=== PATIENT | male | born 1940 | race Caucasian/White ===

== ENCOUNTER 2017-01-18 19:52 | Inpatient (IN) | payer OTHER, MEDICAID, MEDICARE ==
[~2017-01-18] VITALS: Ht 167.6 cm; Wt 75.0 kg
[~2017-01-18 19:52] MED LIST: ALEN70TA39 PO; ASPI81TA82 PO; B12-1CHW PO; CALC600T44 PO; CITA10TA4 PO; DOXA1 PO; FISH1000 PO; FOLI200T PO; GLUCTAB PO; METO10TA PO; OMEP20TA PO; PRAV40TA PO; TAB-TAB PO; TOPR50TA PO; VITA400C28 PO
[2017-01-18 19:54] VITALS: BP 114/71; PULSE 97; RESP 16; TEMP 98; O2SAT 98
--- NOTE | 2017-01-18 20:30 | PD ---
Physical Exam Date Seen by Provider: Jan 18, 2017 Time Seen by Provider: 20:28 Narrative 76 y/o male with left lower abd pain with constipation for 36 hours. Patient is unable to keep food or fluids down. No fever. Vital Signs reviewed. Patient is Stable and awaiting Bed Placement. Data Data Last Documented VS Vital Signs Date Time Temp Pulse Resp B/P (MAP) Pulse Ox O2 Delivery O2 Flow Rate FiO2 01/18/17 19:54 98.0 97 16 114/71 (85) 98 MDM Medical Record Reviewed: Yes Supervised Visit with JILLIAN: Yes Condition: Stable Wayne You Jan 18, 2017 20:30
[2017-01-18] MEDS ORDERED: SODIUM CHLOR 0.9% 1000 ML INJ 1,000 ML IV SCH (20:34)
[2017-01-18] MEDS ORDERED: SODIUM CHLORIDE 0.9% FLUSH 10 ML FLUSH IV FLUSH PRN ×2 (20:45→23:30)
[2017-01-18] MEDS ORDERED: ONDANSETRON HCL 4 MG/2 ML VIAL IVP ONE (20:45)
[2017-01-18 20:56] VITALS: BP 99/68; PULSE 84; RESP 16; O2SAT 95
[2017-01-18] MEDS ORDERED: CALC600T25 PO (20:56)
[2017-01-18] MEDS ORDERED: METO50TA PO (20:56)
[2017-01-18] MEDS ORDERED: MULT-65 PO (20:56)
[2017-01-18] MEDS ORDERED: ALEN1TAB48 PO (20:56)
[2017-01-18] MEDS ORDERED: CYAN100025 PO (20:56)
[2017-01-18] MEDS ORDERED: FINA5TAB2 PO (20:56)
[2017-01-18] MEDS ORDERED: TAMS0.4C4 PO (20:56)
[2017-01-18] MEDS ORDERED: FOLI800T PO (20:56)
[2017-01-18] MEDS ORDERED: FISHCAP4 PO (20:56)
[2017-01-18] MEDS ORDERED: METF500T PO (20:56)
[2017-01-18] MEDS ORDERED: PRAV40TA2 PO (20:56)
[2017-01-18] MEDS ORDERED: OMEP20TA PO (20:56)
[2017-01-18] MEDS ORDERED: VITA250T3 PO (20:56)
[2017-01-18] MEDS ORDERED: METO10TA PO (20:56)
[2017-01-18] MEDS ORDERED: CHOL100025 CHEW (20:56)
[2017-01-18] MEDS ORDERED: ACET-822 PO (20:56)
[2017-01-18] MEDS ORDERED: CITA10TA4 PO (20:56)
[2017-01-18 21:00] VITALS: RESP 16; O2SAT 95
[2017-01-18] MEDS ORDERED: DIATRIZOATE MEGLUM/DIATRIZOATE SOD 9 ML CUP ONE (21:07)
--- NOTE | 2017-01-18 21:18 | PD ---
HPI Chief Complaint: Abdominal Pain Time Seen by Provider: 20:34 Travel History International Travel<30 days: No Contact w/Intl Traveler<30days: No Traveled to known affect area: No History of Present Illness HPI Patient is a 76-year-old male with past surgical history of right-sided nephroureterectomy, appendectomy, hernia repair, tonsillectomy, pacemaker placement, the emergency room complaints of abdominal pain, nausea vomiting and constipation. Patient reports that for the past 36 hours, he has not been feeling well. Reports that he has had intractable nausea and vomiting, reports that he has not been able to eat or drink anything. Patient reports that he last had a bowel movement was 36 hours ago. Patient reports abdominal pain to lower abdomen. Denies fever/chills. Denies dysuria, urinary urgency/freq. Patient reports that he has been in remission from kidney cancer about a little less than 5 years. He does still follow with his oncologist Dr. Jeannie LAM Past Medical History Arthritis: Yes Autoimmune Disease: No Anxiety: Yes Depression: No Heart Rhythm Problems: Yes Cancer: Yes (KIDNEY) Cardiovascular Problems: Yes (irregular heart beat, PACEMAKER PLACEMENT) High Cholesterol: Yes Chest Pain: Yes Congestive Heart Failure: No Diabetes: Yes Patient Takes Glucophage: Yes (Metformin) Diminished Hearing: Yes Endocrine: Yes Gastrointestinal Disorders: Yes (ON OMEPRAZOLE) GERD: Yes Genitourinary: Yes Hepatitis: No Hiatal Hernia: Yes Hypertension: Yes Immune Disorder: No Implanted Vascular Access Dvce: Yes Medical other: Yes (HIGH CHOLESTEROL, ARTHRITIS, 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) Musculoskeletal: Yes Neurologic: No Psychiatric: Yes Reproductive: No Respiratory: Yes (hx of sleep apnea) Radiation Therapy: No Sleep Apnea: Yes (HX - NOT ON C-PAP) Thyroid Disease: No Past Surgical History Abdominal Surgery: Yes (appendectomy, RIGHT INGUINAL HERNIA) Body Medical Devices: STENT RIGHT URETER Cardiac Surgery: Yes (pacemaker insertion 09/2011 ; RE-INSERTION PACEMAKER 12/09) Ear Surgery: No Endocrine Surgery: No Eye Surgery: No Genitourinary Surgery: Yes (RT KIDNEY REMOVED) Gynecologic Surgery: No Neurologic Surgery: No Oral Surgery: Yes (TONSILLECTOMY) Pacemaker: Yes ([employer]) Thoracic Surgery: No Tonsillectomy: Yes Other Surgery: Yes (POLYNODAL CYST ON TAILBONE OF SPINE, BLADDER POLYP REMOVAL ) Social History Alcohol Use: No Tobacco Use: Yes (5 CIGARETTES/DAY) Substance Use: No Allergies-Medications (Allergen,Severity, Reaction): Coded Allergies: No Known Allergies (Unverified , 01/18/17) Reported Meds & Prescriptions Reported Meds & Active Scripts Active Reported Vitamin D3 (Cholecalciferol) 1,000 Unit Chew 1,000 Units CHEW DAILY Finasteride 5 Mg Tab 5 Mg PO DAILY Do not crush. Tylenol Extra Strength (Acetaminophen) 500 Mg Tablet PO HS Calcium (Calcium Carbonate) 600 Mg Tab PO DAILY Folic Acid 800 Mcg Tab 800 Mcg PO DAILY Vitamin C (Ascorbic Acid) 250 Mg Tab 500 Mg PO B-12 (Cyanocobalamin) 1,000 Mcg Subl 1,000 Mcg PO DAILY Multi-Vitamin Daily (Multiple Vitamin) 1 Tab Tab 1 Tab PO DAILY Fish Oil + D3 (Fish Oil-Cholecalciferol) 1,200-1,000 Mg-Unit Cap 1 Cap PO DAILY Tamsulosin (Tamsulosin HCl) 0.4 Mg Cap 0.4 Mg PO HS Pravastatin 40 Mg Tab 40 Mg PO DAILY Metformin (Metformin HCl) 500 Mg Tab 500 Mg PO DAILY With a meal Metoprolol Tartrate 50 Mg Tab 50 Mg PO BID Metoclopramide (Metoclopramide HCl) 10 Mg Tab 10 Mg PO TID Citalopram (Citalopram Hydrobromide) 10 Mg Tab 10 Mg PO DAILY Omeprazole 20 Mg Tab 20 Mg PO DAILY Alendronate (Alendronate Sodium) 70 Mg Tab 70 Mg PO Q7D Review of Systems General / Constitutional: No: Fever Eyes: No: Visual changes HENT: No: Headaches Cardiovascular: No: Chest Pain or Discomfort Respiratory: No: Shortness of Breath Gastrointestinal: Positive: Nausea, Vomiting, Abdominal Pain, Constipation Genitourinary: No: Dysuria Musculoskeletal: No: Pain Skin: No Rash Neurologic: No: Weakness Psychiatric: No: Depression Endocrine: No: Polydipsia Hematologic/Lymphatic: No: Easy Bruising Physical Exam Narrative GENERAL: Moderate distress SKIN: Focused skin assessment warm/dry. HEAD: Atraumatic. Normocephalic. EYES: Pupils equal and round. No scleral icterus. No injection or drainage. ENT: No nasal bleeding or discharge. Mucous membranes pink and moist. NECK: Trachea midline. No JVD. CARDIOVASCULAR: Regular rate and rhythm. No murmur appreciated. RESPIRATORY: No accessory muscle use. Clear to auscultation. Breath sounds equal bilaterally. GASTROINTESTINAL: Abdomen soft, increased tenderness to lower abdomen with no rebound or guarding , nondistended. Hepatic and splenic margins not palpable. MUSCULOSKELETAL: No obvious deformities. No clubbing. No cyanosis. No edema. NEUROLOGICAL: Awake and alert. No obvious cranial nerve deficits. Motor grossly within normal limits. Normal speech. PSYCHIATRIC: Appropriate mood and affect; insight and judgment normal. Data Data Last Documented VS Vital Signs Date Time Temp Pulse Resp B/P (MAP) Pulse Ox O2 Delivery O2 Flow Rate FiO2 01/18/17 22:19 77 () 01/18/17 19:54 98.0 Orders Orders Complete Blood Count With Diff (01/18/17 20:34) Comprehensive Metabolic Panel (01/18/17 20:34) Lipase (01/18/17 20:34) Prothrombin Time / Inr (Pt) (01/18/17 20:34) Act Partial Throm Time (Ptt) (01/18/17 20:34) Urinalysis - C+S If Indicated (01/18/17 20:34) Iv Access Insert/Monitor (01/18/17 20:34) Ecg Monitoring (01/18/17 20:34) Oximetry (01/18/17 20:34) NPO (01/18/17 20:34) Ondansetron Inj (Zofran Inj) (01/18/17 20:45) Sodium Chlor 0.9% 1000 Ml Inj (Ns 1000 M (01/18/17 20:34) Sodium Chloride 0.9% Flush (Ns Flush) (01/18/17 20:45) Ct Abd/Pel W/O Iv Contrast (01/18/17 21:01) Diatrizoate Liq ( Gastrofran Liq) (01/18/17 21:07) Oral Contrast - Adult (01/18/17 21:08) Labs Laboratory Tests Test 01/18/17 20:40 White Blood Count 21.2 TH/MM3 Red Blood Count 5.04 MIL/MM3 Hemoglobin 16.7 GM/DL Hematocrit 51.2 % Mean Corpuscular Volume 101.6 FL Mean Corpuscular Hemoglobin 33.1 PG Mean Corpuscular Hemoglobin Concent 32.6 % Red Cell Distribution Width 12.6 % Platelet Count 316 TH/MM3 Mean Platelet Volume 9.9 FL Neutrophils (%) (Auto) 88.2 % Lymphocytes (%) (Auto) 4.3 % Monocytes (%) (Auto) 7.1 % Eosinophils (%) (Auto) 0.1 % Basophils (%) (Auto) 0.3 % Neutrophils # (Auto) 18.7 TH/MM3 Lymphocytes # (Auto) 0.9 TH/MM3 Monocytes # (Auto) 1.5 TH/MM3 Eosinophils # (Auto) 0.0 TH/MM3 Basophils # (Auto) 0.1 TH/MM3 CBC Comment DIFF FINAL Differential Comment Prothrombin Time 11.9 SEC Prothromb Time International Ratio 1.1 RATIO Activated Partial Thromboplast Time 24.0 SEC Blood Urea Nitrogen 23 MG/DL Creatinine 0.89 MG/DL Random Glucose 182 MG/DL Total Protein 7.2 GM/DL Albumin 3.7 GM/DL Calcium Level 9.4 MG/DL Alkaline Phosphatase 80 U/L Aspartate Amino Transf (AST/SGOT) 16 U/L Alanine Aminotransferase (ALT/SGPT) 39 U/L Total Bilirubin 0.9 MG/DL Sodium Level 134 MEQ/L Potassium Level 4.3 MEQ/L Chloride Level 97 MEQ/L Carbon Dioxide Level 26.4 MEQ/L Anion Gap 11 MEQ/L Estimat Glomerular Filtration Rate 84 ML/MIN Lipase 78 U/L MDM Medical Decision Making Medical Screen Exam Complete: Yes Emergency Medical Condition: Yes Interpretation(s) Vital Signs Date Time Temp Pulse Resp B/P (MAP) Pulse Ox O2 Delivery O2 Flow Rate FiO2 01/18/17 21:00 16 Automatic Cuff 95 Room Air 01/18/17 20:56 84 16 99/68 (78) 95 Room Air 01/18/17 19:54 98.0 97 16 114/71 (85) 98 Differential Diagnosis Differential includes small bowel obstruction, gastroenteritis, abdominal mass, electrolyte abnormality, UTI Narrative Course Patient is a 76-year-old male with past surgical history of right-sided nephroureterectomy, appendectomy, hernia repair, tonsillectomy, pacemaker placement, the emergency room complaints of abdominal pain, nausea vomiting and constipation. Patient reports that for the past 36 hours, he has not been feeling well. Reports that he has had intractable nausea and vomiting, reports that he has not been able to eat or drink anything. Patient reports that he last had a bowel movement was 36 hours ago. Plan to administer IVF and antiemetics. Ct of abdomen and pelvis without IV contrast but with PO contrast ordered. Ct with iv contrast not ordered as patient has only 1 working kidney - PO contrast will be sufficient to evaluate for SBO Vital Signs Date Time Temp Pulse Resp B/P (MAP) Pulse Ox O2 Delivery O2 Flow Rate FiO2 01/18/17 22:19 77 () 01/18/17 21:00 16 Automatic Cuff 95 Room Air 01/18/17 20:56 84 16 99/68 (78) 95 Room Air 01/18/17 19:54 98.0 97 16 114/71 (85) 98 Laboratory Tests Test 01/18/17 20:40 White Blood Count 21.2 TH/MM3 (4.0-11.0) Red Blood Count 5.04 MIL/MM3 (4.50-5.90) Hemoglobin 16.7 GM/DL (13.0-17.0) Hematocrit 51.2 % (39.0-51.0) Mean Corpuscular Volume 101.6 FL (80.0-100.0) Mean Corpuscular Hemoglobin 33.1 PG (27.0-34.0) Mean Corpuscular Hemoglobin Concent 32.6 % (32.0-36.0) Red Cell Distribution Width 12.6 % (11.6-17.2) Platelet Count 316 TH/MM3 (150-450) Mean Platelet Volume 9.9 FL (7.0-11.0) Neutrophils (%) (Auto) 88.2 % (16.0-70.0) Lymphocytes (%) (Auto) 4.3 % (9.0-44.0) Monocytes (%) (Auto) 7.1 % (0.0-8.0) Eosinophils (%) (Auto) 0.1 % (0.0-4.0) Basophils (%) (Auto) 0.3 % (0.0-2.0) Neutrophils # (Auto) 18.7 TH/MM3 (1.8-7.7) Lymphocytes # (Auto) 0.9 TH/MM3 (1.0-4.8) Monocytes # (Auto) 1.5 TH/MM3 (0-0.9) Eosinophils # (Auto) 0.0 TH/MM3 (0-0.4) Basophils # (Auto) 0.1 TH/MM3 (0-0.2) CBC Comment DIFF FINAL Differential Comment Prothrombin Time 11.9 SEC (9.8-11.6) Prothromb Time International Ratio 1.1 RATIO Activated Partial Thromboplast Time 24.0 SEC (24.3-30.1) Blood Urea Nitrogen 23 MG/DL (7-18) Creatinine 0.89 MG/DL (0.60-1.30) Random Glucose 182 MG/DL (74-106) Total Protein 7.2 GM/DL (6.4-8.2) Albumin 3.7 GM/DL (3.4-5.0) Calcium Level 9.4 MG/DL (8.5-10.1) Alkaline Phosphatase 80 U/L (45-117) Aspartate Amino Transf (AST/SGOT) 16 U/L (15-37) Alanine Aminotransferase (ALT/SGPT) 39 U/L (12-78) Total Bilirubin 0.9 MG/DL (0.2-1.0) Sodium Level 134 MEQ/L (136-145) Potassium Level 4.3 MEQ/L (3.5-5.1) Chloride Level 97 MEQ/L (98-107) Carbon Dioxide Level 26.4 MEQ/L (21.0-32.0) Anion Gap 11 MEQ/L (5-15) Estimat Glomerular Filtration Rate 84 ML/MIN (>89) Lipase 78 U/L (73-393) Ct of abdomen and pelvis: Proximal to mid small bowel ileus with transition zone identified in the right side of the pelvis characteristic of a partial small bowel obstruction. Patient with no nausea or vomiting while emergency room, will hold on placing NG tube. Patient will require admission to the hospital, call made to Dr. Burger who accepts pt to service Diagnosis Primary Impression: Small bowel obstruction Admitting Information Admitting Physician Requests: Admit Condition: Stable GustavoJackie Marco VIVAS Jan 18, 2017 21:17
[2017-01-18 21:49] LABS: AUTOMATED NEUTROPHIL # 18.7 TH/MM3 (1.8-7.7); BASOPHIL # 0.1 TH/MM3 (0-0.2); BASOPHIL % 0.3 % (0.0-2.0); EOSINOPHIL % 0.1 % (0.0-4.0); HEMATOCRIT 51.2 % (39.0-51.0); HEMO FLAGS DIFF FINAL; LYMPH % 4.3 % (9.0-44.0); LYMPHOCYTE # 0.9 TH/MM3 (1.0-4.8); MEAN CELL VOLUME 101.6 FL (80.0-100.0); MEAN CORPUSCULAR HEMOGLOBIN 33.1 PG (27.0-34.0); MEAN CORPUSCULAR HGB CONC 32.6 % (32.0-36.0); MONO % 7.1 % (0.0-8.0); NEUT % 88.2 % (16.0-70.0); PLATELET COUNT 316 TH/MM3 (150-450); RED BLOOD COUNT 5.04 MIL/MM3 (4.50-5.90); RED CELL DISTRIBUTION WIDTH 12.6 % (11.6-17.2); WHITE BLOOD COUNT 21.2 TH/MM3 (4.0-11.0)
[2017-01-18 22:06] LABS: INTERNATIONAL NORMALIZED RATIO 1.1 RATIO; PROTHROMBIN TIME - PATIENT 11.9 SEC (9.8-11.6)
[2017-01-18 22:08] LABS: ANION GAP 11 MEQ/L (5-15); AST (GOT) 16 U/L (15-37); BICARBONATE 26.4 MEQ/L (21.0-32.0); BLOOD UREA NITROGEN 23 MG/DL (7-18); CHLORIDE 97 MEQ/L (98-107); GLOMERULAR FILTRATION RATE 84 ML/MIN (>89); POTASSIUM 4.3 MEQ/L (3.5-5.1); SODIUM (NA) 134 MEQ/L (136-145)
[2017-01-18 22:09] LABS: ALT (GPT) 39 U/L (12-78)
[2017-01-18 22:11] LABS: ALKALINE PHOSPHATASE 80 U/L (45-117); TOTAL BILIRUBIN ADULT 0.9 MG/DL (0.2-1.0)
[2017-01-18 22:19] VITALS: BP 148/76; PULSE 75; PULSE 77; RESP 16; O2SAT 99
--- NOTE | 2017-01-18 22:51 | RADRPT ---
EXAM DATE/TIME: 01/18/2017 22:30 [facility] COMPARISON: No previous studies available for comparison. INDICATIONS : Abdominal pain, constipation, and vomiting. ORAL CONTRAST: Prescribed oral contrast ingested. RADIATION DOSE: 9.68 CTDIvol (mGy) MEDICAL HISTORY : Gastroesophageal reflux disease. Hernia. Diabetes mellitus type 2.Renal cancer. Hypertension. SURGICAL HISTORY : Appendectomy. Inguinal hernia repair.Right kidney removed. Umbilical hernia repair. ENCOUNTER: Initial ACUITY: 2 days PAIN SCALE: 6/10 LOCATION: abdomen TECHNIQUE: Volumetric scanning of the abdomen and pelvis was performed. Using automated exposure control and ad justment of the mA and/or kV according to patient size, radiation dose was kept as low as reasonably achievable to obtain optimal diagnostic quality images. DICOM format image data is available electro nically for review and comparison. FINDINGS: LOWER LUNGS: The visualized lower lungs are clear. LIVER: Homogeneous density without lesion. There is no dilation of the biliary tree. Numerous calcified gal lstones are identified dependent within the gallbladder. SPLEEN: Normal size without lesion. PANCREAS: Within normal limits. KIDNEYS: Right kidney is absent. Left kidney demonstrates moderate hydronephrosis and hydroureter to the urete rovesical junction. Multiple calcific densities are identified within the urinary bladder. ADRENAL GLANDS: Within normal limits. VASCULAR: Abdominal aorta measures 2.8 cm in greatest diameter. BOWEL/MESENTERY: A proximal to mid small bowel ileus with distended small bowel loops are noted. There is a transition identified in the right side of the pelvis. There is no evidence of focal mass or inflammatory disea se. Colon is normal in caliber. Multiple diverticula are seen throughout the descending and sigmoid s egments. There are no active colonic inflammatory changes. ABDOMINAL WALL: Within normal limits. RETROPERITONEUM: There is no lymphadenopathy. BLADDER: Calcifications are identified along the right posterolateral wall of the bladder. Distended left uret er is noted. There is no evidence of obstructing calculus or mass at the ureterovesical junction. REPRODUCTIVE: Calcific bodies are identified within the transition zone of the prostate. INGUINAL: There is no lymphadenopathy or hernia. MUSCULOSKELETAL: Within normal limits for patient age. CONCLUSION: 1. Proximal to mid small bowel ileus with transition zone identified in the right side of the pelvis characteristic of a partial small bowel obstruction. 2. Left hydronephrosis and hydroureter to the ureterovesical junction without clear indication of obs tructing process. 3. Colonic diverticulosis without evidence of active inflammation. 4. Cholelithiasis without evidence of biliary obstruction. 5. Ectatic atherosclerotic disease of the abdominal aorta. 6. Calculi identified in urinary bladder. Murtaza Alvarado MD on January 18, 2017 at 22:39 Board Certified Radiologist. This report was verified electronically.
[2017-01-18] MEDS ORDERED: BISACODYL 10 MG SUPP RECTAL ONE (23:30)
[2017-01-18] MEDS ORDERED: MORPHINE SULFATE 4 MG/ML INJ IV PRN (23:30)
[2017-01-18] MEDS ORDERED: DEXTROSE 50% IN WATER 50 ML VIAL(D50) IV PRN (23:30)
[2017-01-18] MEDS ORDERED: KETOROLAC TROMETHAMINE 30 MG/ML (IVP) VIAL IVP PRN ×2 (23:30)
[2017-01-18] MEDS ORDERED: BISACODYL 10 MG SUPP RECTAL PRN (23:30)
[2017-01-18] MEDS ORDERED: NALOXONE HCL 0.4 MG/ML AMP IV PRN (23:30)
[2017-01-18] MEDS ORDERED: GLUCAGON 1 MG/ML VIAL OTHER PRN (23:30)
--- NOTE | 2017-01-18 23:57 | HHI.HP ---
[facility] Service [facility] Primary Care Physician Vern Hernandez MD Admission Diagnosis Small bowel obstruction Diagnoses: Chief Complaint: Abdominal pain Travel History International Travel<30 Days: No Contact w/Intl Traveler <30 Da: No Traveled to Known Affected Are: No History of Present Illness This is a 76-year-old male with a history of renal cancer status post surgery, A. fib status post pacemaker placement, intolerant to anticoagulation with bleeding, hyperlipidemia, diabetes mellitus, GERD, hypertension and sleep apnea not on C Pap. He presents to the emergency department because of nausea, vomiting and abdominal pain for the past 36 hours. States he has not been feeling well. He has intractable nausea and vomiting unable to tolerate by mouth. He also has constant sharp moderate lower abdominal pain associated with abdominal distention. States he has not had any bowel movement for almost 2 days. He passed gas once prior to arrival. CT of the abdomen pelvis shows partial bowel obstruction. He has had extensive abdominal surgery. All other systems reviewed and negative Review of Systems Except as stated in HPI: all other systems reviewed are Neg Past Family Social History Past Medical History As previously mentioned Past Surgical History Right sided nephroureterectomy, appendectomy, hernia repair, tonsillectomy Reported Medications Vitamin D3 (Cholecalciferol) 1,000 Unit Chew 1,000 Units CHEW DAILY Finasteride 5 Mg Tab 5 Mg PO DAILY Do not crush. Tylenol Extra Strength (Acetaminophen) 500 Mg Tablet PO HS Calcium (Calcium Carbonate) 600 Mg Tab PO DAILY Folic Acid 800 Mcg Tab 800 Mcg PO DAILY Vitamin C (Ascorbic Acid) 250 Mg Tab 500 Mg PO B-12 (Cyanocobalamin) 1,000 Mcg Subl 1,000 Mcg PO DAILY Multi-Vitamin Daily (Multiple Vitamin) 1 Tab Tab 1 Tab PO DAILY Fish Oil + D3 (Fish Oil-Cholecalciferol) 1,200-1,000 Mg-Unit Cap 1 Cap PO DAILY Tamsulosin (Tamsulosin HCl) 0.4 Mg Cap 0.4 Mg PO HS Pravastatin 40 Mg Tab 40 Mg PO DAILY Metformin (Metformin HCl) 500 Mg Tab 500 Mg PO DAILY With a meal Metoprolol Tartrate 50 Mg Tab 50 Mg PO BID Metoclopramide (Metoclopramide HCl) 10 Mg Tab 10 Mg PO TID Citalopram (Citalopram Hydrobromide) 10 Mg Tab 10 Mg PO DAILY Omeprazole 20 Mg Tab 20 Mg PO DAILY Alendronate (Alendronate Sodium) 70 Mg Tab 70 Mg PO Q7D Allergies: Coded Allergies: No Known Allergies (Unverified , 01/18/17) Family History CVA Social History Condition to smoke 5 cigarettes a day. Does not drink. Physical Exam Vital Signs Vital Signs Date Time Temp Pulse Resp B/P (MAP) Pulse Ox O2 Delivery O2 Flow Rate FiO2 01/18/17 22:19 77 () 01/18/17 21:00 16 Automatic Cuff 95 Room Air 01/18/17 20:56 84 16 99/68 (78) 95 Room Air 01/18/17 19:54 98.0 97 16 114/71 (85) 98 Physical Exam GENERAL: This is a well-nourished, well-developed patient, in no apparent distress. SKIN: No rashes, ecchymoses or lesions. Cool and dry. HEAD: Atraumatic. Normocephalic. No temporal or scalp tenderness. EYES: Pupils equal round and reactive. Extraocular motions intact. No scleral icterus. No injection or drainage. ENT: Nose without bleeding, purulent drainage or septal hematoma. Throat without erythema, tonsillar hypertrophy or exudate. Uvula midline. Airway patent. Dry oral mucosa NECK: Trachea midline. No JVD or lymphadenopathy. Supple, nontender, no meningeal signs. CARDIOVASCULAR: Regular rate and rhythm without murmurs, gallops, or rubs. RESPIRATORY: Clear to auscultation. Breath sounds equal bilaterally. No wheezes , rales, or rhonchi. GASTROINTESTINAL: Abdomen soft, slightly tender lower quadrants, nondistended. No guarding. MUSCULOSKELETAL: Extremities without clubbing, cyanosis, or edema. No joint tenderness, effusion, or edema noted. No calf tenderness. Negative Homans sign bilaterally. NEUROLOGICAL: Awake and alert. Cranial nerves II through XII intact. Motor and sensory grossly within normal limits. Five out of 5 muscle strength in all muscle groups. Normal speech. Laboratory Laboratory Tests Test 01/18/17 20:40 White Blood Count 21.2 Red Blood Count 5.04 Hemoglobin 16.7 Hematocrit 51.2 Mean Corpuscular Volume 101.6 Mean Corpuscular Hemoglobin 33.1 Mean Corpuscular Hemoglobin Concent 32.6 Red Cell Distribution Width 12.6 Platelet Count 316 Mean Platelet Volume 9.9 Neutrophils (%) (Auto) 88.2 Lymphocytes (%) (Auto) 4.3 Monocytes (%) (Auto) 7.1 Eosinophils (%) (Auto) 0.1 Basophils (%) (Auto) 0.3 Neutrophils # (Auto) 18.7 Lymphocytes # (Auto) 0.9 Monocytes # (Auto) 1.5 Eosinophils # (Auto) 0.0 Basophils # (Auto) 0.1 CBC Comment DIFF FINAL Differential Comment Prothrombin Time 11.9 Prothromb Time International Ratio 1.1 Activated Partial Thromboplast Time 24.0 Blood Urea Nitrogen 23 Creatinine 0.89 Random Glucose 182 Total Protein 7.2 Albumin 3.7 Calcium Level 9.4 Alkaline Phosphatase 80 Aspartate Amino Transf (AST/SGOT) 16 Alanine Aminotransferase (ALT/SGPT) 39 Total Bilirubin 0.9 Sodium Level 134 Potassium Level 4.3 Chloride Level 97 Carbon Dioxide Level 26.4 Anion Gap 11 Estimat Glomerular Filtration Rate 84 Lipase 78 Result Diagram: 01/18/17203901/18/172039 Caprini VTE Risk Assessment Caprini VTE Risk Assessment: Mod/High Risk (score >= 2) Caprini Risk Assessment Model Point Value = 1 Point Value = 2 Point Value = 3 Point Value = 5 Age 41-60 Minor surgery BMI > 25 kg/m2 Swollen legs Varicose veins or History of unexplained or recurrent spontaneous Oral contraceptives or hormone replacement Sepsis (< 1 month) Serious lung disease, including pneumonia (< 1 month) Abnormal pulmonary function Acute myocardial infarction Congestive heart failure (< 1 month) History of inflammatory bowel disease Medical patient at bed rest Age 61-74 Arthroscopic surgery Major open surgery (> 45 min) Laparoscopic surgery (> 45 min) Malignancy Confined to bed (> 72 hours) Immobilizing plaster cast Central venous access Age >= 75 History of VTE Family history of VTE Factor V Leiden Prothrombin [id number] Lupus anticoagulant Anticardiolipin antibodies Elevated serum homocysteine Heparin-induced thrombocytopenia Other congenital or acquired thrombophilia Stroke (< 1 month) Elective arthroplasty Hip, pelvis, or leg fracture Acute spinal cord injury (< 1 month) Prophylaxis Regimen Total Risk Factor Score Risk Level Prophylaxis Regimen 0-1 Low Early ambulation 2 Moderate Order ONE of the following: *Sequential Compression Device (SCD) *Heparin 5000 units SQ BID 3-4 Higher Order ONE of the following medications: *Heparin 5000 units SQ TID *Enoxaparin/Lovenox 40 mg SQ daily (WT < 150 kg, CrCl > 30 mL/min) *Enoxaparin/Lovenox 30 mg SQ daily (WT < 150 kg, CrCl > 10-29 mL/min) *Enoxaparin/Lovenox 30 mg SQ BID (WT < 150 kg, CrCl > 30 mL/min) AND/OR *Sequential Compression Device (SCD) 5 or more Highest Order ONE of the following medications: *Heparin 5000 units SQ TID (Preferred with Epidurals) *Enoxaparin/Lovenox 40 mg SQ daily (WT < 150 kg, CrCl > 30 mL/min) *Enoxaparin/Lovenox 30 mg SQ daily (WT < 150 kg, CrCl > 10-29 mL/min) *Enoxaparin/Lovenox 30 mg SQ BID (WT < 150 kg, CrCl > 30 mL/min) AND *Sequential Compression Device (SCD) Assessment and Plan Assessment and Plan This is a 76-year-old male with a history of renal cancer status post surgery, A. fib status post pacemaker placement, intolerant to anticoagulation with bleeding, hyperlipidemia, diabetes mellitus, GERD, hypertension and sleep apnea not on C Pap. He presents to the emergency department because of nausea, vomiting and abdominal pain for the past 36 hours. States he has not been feeling well. He has intractable nausea and vomiting unable to tolerate by mouth. He also has constant sharp moderate lower abdominal pain associated with abdominal distention. States he has not had any bowel movement for almost 2 days. He passed gas once prior to arrival. CT of the abdomen pelvis shows partial bowel obstruction. He has had extensive abdominal surgery. Partial small bowel obstruction likely related to adhesions with extensive abdominal surgeries. Keep nothing by mouth, start IV hydration and pain management with IV Toradol and IV morphine. Hold all home medications for now. GI prophylaxis with Protonix. NGT if persistent vomiting. Repeat KUB in the morning. Consider general surgery consult Leukocytosis likely secondary to above. Patient has abnormal urinalysis with no UTI symptoms. Empiric IV Levaquin. Follow-up cultures Mild hyponatremia. Patient will be on NS infusion Diabetes mellitus. Monitor fingerstick sugars sliding scale coverage. Hypoglycemia protocol DVT prophylaxis with SCD and early ambulation. Hold pharmacological prophylaxis may need surgical intervention Code Status Full Discussed Condition With Patient and daughter Noble Burger MD Jan 18, 2017 23:57
[2017-01-19] VITALS (11 sets, daily range): BP systolic 114–146; BP diastolic 56–85; PULSE 80–103; RESP 16–22; TEMP 97.6–98.2; O2SAT 92–96
[2017-01-19] MEDS: PANTOPRAZOLE SODIUM 40 MG VIAL IV PUSH SCH ×2 (00:07→23:51)
[2017-01-19] MEDS: NS + KCL 20 MEQ INJ 1,000 ML IV SCH ×3 (00:07→19:30)
[2017-01-19 00:30] LABS: BLOOD, URINE SMALL (NEG); GLUCOSE,URINE NEG (NEG); KETONE, URINE TRACE mg/dL (NEG); MUCUS URINE FEW /lpf (OCC); NITRITE,URINE NEG (NEG); SQUAMOUS EPITHELIAL CELL URINE <1 /hpf (0-5); URINE COLOR YELLOW (YELLW/STRAW)
[2017-01-19 00:31] LABS: COMMENT (UR) CULTURE INDICATED; CULTURE IF INDICATED CULTURE INDICATED
[2017-01-19] MEDS: LEVOFLOXACIN 500 MG PREMIX INJ 100 ML IV SCH (01:28)
--- NOTE | 2017-01-19 06:50 | RADRPT ---
EXAM DATE/TIME: 01/19/2017 06:36 [facility] COMPARISON: CT ABDOMEN & PELVIS W/O CONTRAST, January 18, 2017, 22:30. INDICATIONS : Obstruction. MEDICAL HISTORY : None. SURGICAL HISTORY : None. ENCOUNTER: Subsequent ACUITY: 1 week PAIN SCORE: 0/10 LOCATION: Bilateral Abdomen FINDINGS: Supine view of the abdomen was performed. The abdominal bowel gas pattern demonstrate some distentio n of small bowel similar to CT from January 18. No free air identified. Degenerative change of the spi ne. CONCLUSION: 1. Mild gaseous distention of small bowel similar in appearance to recent CT. No free air. Werner Grace MD on January 19, 2017 at 6:47 Board Certified Radiologist. This report was verified electronically.
[2017-01-19 07:39] LABS: BASOPHIL % 0.1 % (0.0-2.0); EOSINOPHIL % 0.3 % (0.0-4.0); HEMATOCRIT 47.3 % (39.0-51.0); HEMO FLAGS DIFF FINAL; LYMPH % 4.2 % (9.0-44.0); LYMPHOCYTE # 0.8 TH/MM3 (1.0-4.8); MEAN CELL VOLUME 101.2 FL (80.0-100.0); MEAN CORPUSCULAR HEMOGLOBIN 33.6 PG (27.0-34.0); MEAN CORPUSCULAR HGB CONC 33.2 % (32.0-36.0); MONO % 7.9 % (0.0-8.0); NEUT % 87.5 % (16.0-70.0); PLATELET COUNT 238 TH/MM3 (150-450); RED BLOOD COUNT 4.67 MIL/MM3 (4.50-5.90); RED CELL DISTRIBUTION WIDTH 12.8 % (11.6-17.2); WHITE BLOOD COUNT 18.2 TH/MM3 (4.0-11.0)
[2017-01-19 07:54] LABS: BICARBONATE 24.7 MEQ/L (21.0-32.0)
[2017-01-19 07:57] LABS: POTASSIUM 4.5 MEQ/L (3.5-5.1)
[2017-01-19] MEDS: ONDANSETRON HCL 4 MG/2 ML VIAL IVP PRN ×2 (08:38→21:20)
[2017-01-19] MEDS: SODIUM CHLORIDE 0.9% FLUSH 10 ML FLUSH IV FLUSH SCH ×2 (09:00→20:54)
--- NOTE | 2017-01-19 12:12 | HHI.PR ---
Subjective Remarks resting comfortably with no distress. has some abdominal pain and nausea. no fever. Objective Vitals Vital Signs Date Time Temp Pulse Resp B/P (MAP) Pulse Ox O2 Delivery O2 Flow Rate FiO2 01/19/17 11:23 98.1 100 19 143/85 (104) 95 01/19/17 08:05 98.2 92 22 130/84 (99) 96 01/19/17 03:36 90 01/19/17 01:54 87 01/19/17 01:40 01/19/17 01:33 97.6 93 18 146/83 (104) 92 01/19/17 01:07 80 16 128/56 (80) 94 Room Air 01/18/17 22:19 77 () 01/18/17 21:00 16 Automatic Cuff 95 Room Air 01/18/17 20:56 84 16 99/68 (78) 95 Room Air 01/18/17 19:54 98.0 97 16 114/71 (85) 98 I/O 01/18/17 01/18/17 01/18/17 01/19/17 01/19/17 01/19/17 07:00 15:00 23:00 07:00 15:00 23:00 Intake Total 1000 ml 100 ml Balance 1000 ml 100 ml Intake IV Total 1000 ml 100 ml # Voids 3 Result Diagram: 01/19/1762901/19/17 0630 Objective Remarks GENERAL: This is a well-nourished, well-developed patient, in no apparent distress. CARDIOVASCULAR: Regular rate and regular rhythm without murmurs, gallops, or rubs. RESPIRATORY: Clear to auscultation. Breath sounds equal bilaterally. No wheezes , rales, or rhonchi. GASTROINTESTINAL: Abdomen soft, non-tender, nondistended. Normal, active bowel sounds MUSCULOSKELETAL: Extremities without clubbing, cyanosis, or edema. NEURO: Alert & Oriented x4 to person, place, time, situation. Moves all ext x4 Medications and IVs Current Medications Ondansetron HCl (Zofran Inj) 4 mg ONCE ONCE IVP Last administered on t 21:12; Start 01/18/17 at 20:45; Stop 01/18/17 at 20:46; Status DC Sodium Chloride 1,000 ml @ 1,000 mls/hr Q1H IV Last administered on 01/18/17 21:13; Start 01/18/17 at 20:34; Stop 01/18/17 at 21:33; Status DC Sodium Chloride (NS Flush) 2 ml UNSCH PRN IV FLUSH FLUSH AFTER USING IV ACCESS ; Start 01/18/17 at 20:45 Diatrizoate Meglum/ Diatrizoate Sod (Md [place] Streeter) 18 ml STK-MED ONCE .ROUTE Last administered on 01/18/17 21:13; Start 01/18/17 at 21:07; Stop at 21:08; Status DC Pantoprazole Sodium (Protonix Inj) 40 mg Q24H IV PUSH Last administered on 01/19 00:07; Start 01/18/17 at 23:30 Potassium Chloride/Sodium Chloride 1,000 ml @ 100 mls/hr Q10H IV Last administered on 01/19/17 00:07; Start 01/18/17 at 23:30 Dextrose (D50w (Vial) Inj) 50 ml UNSCH PRN IV HYPOGLYCEMIA-SEE COMMENTS; Start 01/18/17 at 23:30 Glucagon (Glucagon Inj) 1 mg UNSCH PRN OTHER HYPOGLYCEMIA-SEE COMMENTS; Start 01/18/17 at 23:30 Sodium Chloride (NS Flush) 2 ml UNSCH PRN IV FLUSH FLUSH AFTER USING IV ACCESS ; Start 01/18/17 at 23:30 Sodium Chloride (NS Flush) 2 ml BID IV FLUSH ; Start 01/19/17 at 09:00 Ondansetron HCl (Zofran Inj) 4 mg Q6H PRN IVP NAUSEA OR VOMITING Last administered on 01/19/17 08:38; Start 01/18/17 at 23:30 Ketorolac Tromethamine (Toradol Inj) 15 mg Q6H PRN IVP Pain 1-5; if unable to take PO; Start 01/18/17 at 23:30; Stop 01/23/17 at 23:29 Ketorolac Tromethamine (Toradol Inj) 30 mg Q6H PRN IVP Pain 6-10;if unable to take PO; Start 01/18/17 at 23:30; Stop 01/23/17 at 23:29 Morphine Sulfate (Morphine Inj) 2 mg Q3H PRN IV BREAKTHROUGH PAIN; Start at 23:30 Naloxone HCl (Narcan Inj) 0.4 mg UNSCH PRN IV SEE LABEL COMMENTS; Start at 23:30 Bisacodyl (Dulcolax Supp) 10 mg DAILY PRN RECTAL SEVERE CONSITIPATION; Start at 23:30 Bisacodyl (Dulcolax Supp) 10 mg ONCE ONCE RECTAL Last administered on 00:07; Start 01/18/17 at 23:30; Stop 01/18/17 at 23:31; Status DC Levofloxacin/ Dextrose 100 ml @ 100 mls/hr Q24H IV Last administered on 01:28; Start 01/19/17 at 02:00 A/P Assessment and Plan Partial small bowel obstruction likely related to adhesions with extensive abdominal surgeries. Keep nothing by mouth, continue IV hydration and pain management with IV Toradol and IV morphine. Hold all home medications for now. GI prophylaxis with Protonix. NGT if persistent vomiting. Repeat KUB today; similar to CT abdomen yesterday. consult general surgery. Leukocytosis likely secondary to above. Patient has abnormal urinalysis with no UTI symptoms. Empiric IV Levaquin. Follow-up cultures Mild hyponatremia. Patient will be on NS infusion Diabetes mellitus. Monitor fingerstick sugars sliding scale coverage. Hypoglycemia protocol DVT prophylaxis with SCD and early ambulation. Hold pharmacological prophylaxis may need surgical intervention Malachi Martinez MD Jan 19, 2017 12:12
--- NOTE | 2017-01-19 14:22 | MB ---
cc: YOKASTA NOGUEIRA MD, DAVID G. M.D. DATE OF CONSULTATION: 01/19/2017 REASON FOR CONSULTATION Partial small bowel obstruction. BRIEF HISTORY This is a pleasant 76-year-old man who is not the best historian, who has a history of right nephrectomy and atrial fibrillation with a pacemaker who is intolerant to anticoagulation, has hyperlipidemia, diabetes, reflux, hypertension and sleep apnea. He apparently had a normal bowel movement Wednesday and went to [facility], had doughnuts and coffee, came home and had a small bowel movement following that, but has not really had a bowel movement since. He developed distention, nausea and emesis, and no bowel movement over the last two days since Wednesday. He had a CT scan which showed small bowel ileus with a transition zone in the right lower quadrant and no inflammatory changes. He was admitted after an elevated white count was diagnosed and he had a follow-up plain film of the abdomen which showed some mild distention consistent with the findings on the CT scan. He was treated presumably empirically with Levaquin. Interestingly urinalysis on admission did demonstrate proteinuria, ketonuria, moderate leukocyte esterase, 9 red cells, 36 white cells, and a culture was indicated which is pending. He again is poor historian. His daughter is not at the bedside. She did not answer her phone when I called her for additional information and discussion. The history is obtained from the computer. ALLERGIES He has no known drug allergies. PAST MEDICAL HISTORY As discussed above. PAST SURGICAL HISTORY Previous surgeries include: 1. Right nephroureterectomy. 2. Appendectomy. 3. Hernia repair. 4. Tonsillectomy. MEDICATIONS Routine medications include: 1. Vitamin-D3. 2. Finasteride. 3. Extra Strength Tylenol. 4. Calcium. 5. Folic acid. 6. Vitamin-C. 7. B12. 8. Multivitamin. 9. Fish oil. 10.Tamsulosin. 11.Pravastatin. 12.Metformin. 13.Metoprolol. 14.Metoclopramide. 15.Citalopram. 16.Omeprazole. 17.Alendronate. SOCIAL HISTORY He smokes about five cigarettes a day, does not drink. FAMILY HISTORY Significant for stroke. REVIEW OF SYSTEMS Again as discussed in the HPI. He does admit to seeing Dr. Jackson. He has a left-sided pacemaker in place. He is in atrial fibrillation but cannot take anticoagulant medications. He does use a walker for ambulation. He says he still drives. PHYSICAL EXAMINATION GENERAL: He is an elderly man who is in no acute distress. He is very pleasant and cooperative with the exam. He wishes his daughter was here to give details about his history. VITAL SIGNS: Temperature is 98.1, pulse 100, respiratory rate 19, blood pressure 143/85. His O2 sat is 95%. HEENT: He is normocephalic, atraumatic. His pupils are 2-3, round and sluggishly reactive to light. His sclera are anicteric. His oropharynx shows he is edentulous in the upper jaw. He has got teeth on the lower. His mucous membranes appear are moist. NECK: His neck is supple without adenopathy. He has a midline trachea. No jugular venous distention. LUNGS: His lungs are clear to auscultation bilaterally. HEART: His heart sounds are regular without obvious murmur, rub or gallop. He has a left-sided pacemaker in place and the incision is well-healed. ABDOMEN: His abdomen is soft. It is nondistended. He has mild tenderness in the lower abdomen. He has a lower midline healed incision without obvious hernia. He has normal bowel sounds without high-pitched tinkling noises. EXTREMITIES: His extremities are thin. He has got equal radial pulses. NEUROLOGIC: He is neurologically awake, alert, oriented. He has no obvious gross motor or sensory deficits. He has just a poor recollection of his history. LABORATORY His laboratory values include a white count which has gone from 21,000 on admission to 18,000, hemoglobin 15.7, platelet count 238. His differential shows 87.5% neutrophils. INR is 1.1. His potassium 4.5, BUN 22, creatinine 0.72, glucose 129. Liver function tests and lipase are normal. Urinalysis with the above-mentioned findings. IMAGING CT abdomen and pelvis demonstrated the findings as discussed above. He is status post right nephrectomy. He has some hydronephrosis and hydroureter on the left side without a clear indication of the obstructing process. He has colonic diverticulosis without inflammation. He has multiple gallstones without evidence of biliary obstruction. 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 ASSESSMENT A very pleasant 76-year-old gentleman with a history of right nephrectomy through a lower midline incision. He has a possible urinary tract infection. He may have an adhesional partial small bowel obstruction which appears clinically improved at this time as he has no abdominal distention or further nausea or vomiting. He has gallstones. He has a left dilated ureter of unknown etiology. He says he has a history of bladder polyps and has had cystoscopy for that. PLAN Full liquid diet. Attempts to advance diet as he tolerates. If he has worsening symptoms, consideration for upper GI small bowel follow-through versus diagnostic laparoscopy and laparoscopic adhesiolysis. I agree with continuing broad-spectrum antibiotic treatment and follow-up on the urine culture. ADDENDUM I did attempt to call the patient's daughter, Conchita, and I have left her a voice mail with our impression and plan. MD TEVIN Lockhart/FLORECITA /1:33 PM /2:04 PM
[2017-01-20] VITALS (8 sets, daily range): BP systolic 124–157; BP diastolic 69–87; PULSE 79–101; RESP 16–21; TEMP 96.7–98.7; O2SAT 92–95
[2017-01-20] MEDS: LEVOFLOXACIN 500 MG PREMIX INJ 100 ML IV SCH (01:51)
[2017-01-20] MEDS: NS + KCL 20 MEQ INJ 1,000 ML IV SCH ×3 (05:26→22:42)
[2017-01-20] MEDS: ONDANSETRON HCL 4 MG/2 ML VIAL IVP PRN ×2 (05:34→10:29)
[2017-01-20] MEDS: SODIUM CHLORIDE 0.9% FLUSH 10 ML FLUSH IV FLUSH SCH ×2 (09:00→21:00)
[2017-01-20 10:29] LABS: AUTOMATED NEUTROPHIL # 16.5 TH/MM3 (1.8-7.7); BASOPHIL % 0.1 % (0.0-2.0); EOSINOPHIL % 0.1 % (0.0-4.0); HEMATOCRIT 50.2 % (39.0-51.0); HEMO FLAGS DIFF FINAL; LYMPHOCYTE # 0.5 TH/MM3 (1.0-4.8); MEAN CELL VOLUME 102.5 FL (80.0-100.0); MEAN CORPUSCULAR HEMOGLOBIN 33.4 PG (27.0-34.0); MEAN CORPUSCULAR HGB CONC 32.6 % (32.0-36.0); MONO % 6.6 % (0.0-8.0); NEUT % 90.2 % (16.0-70.0); PLATELET COUNT 233 TH/MM3 (150-450); RED CELL DISTRIBUTION WIDTH 12.9 % (11.6-17.2); WHITE BLOOD COUNT 18.3 TH/MM3 (4.0-11.0)
--- NOTE | 2017-01-20 12:08 | HHI.PR ---
Subjective Remarks in no acute distress. couldn't tolerate the liquid diet and started to have worsening nausea - had some emesis earlier today. no significant change in his abdominal pain. afebrile. family at the bedside. d/w the RN at the bedside. Objective Vitals Vital Signs Date Time Temp Pulse Resp B/P (MAP) Pulse Ox O2 Delivery O2 Flow Rate FiO2 01/20/17 08:52 98.3 79 16 140/83 (102) 95 01/20/17 04:28 97.5 97 20 157/80 (105) 93 01/20/17 03:53 98 01/20/17 03:31 94 21 01/19/17 23:55 80 01/19/17 23:03 97.6 90 18 119/59 (79) 93 01/19/17 20:06 97.6 102 18 114/83 (93) 96 01/19/17 20:05 103 01/19/17 20:05 80 01/19/17 17:19 93 21 I/O 01/19/17 01/19/17 01/19/17 01/20/17 01/20/17 01/20/17 07:00 15:00 23:00 07:00 15:00 23:00 Intake Total 100 ml 1100 ml 1100 ml 240 ml Balance 100 ml 1100 ml 1100 ml 240 ml Intake Oral 500 ml 240 ml IV Total 100 ml 600 ml 1100 ml # Voids 3 1 # Bowel Movements 0 Result Diagram: 01/20/17 0944 01/19/17 0630 Imaging Last Impressions Abdomen X-Ray 01/19/17 0600 Signed Impressions: Service Date/Time: Thursday, January 19, 2017 06:36 - CONCLUSION: 1. Mild gaseous distention of small bowel similar in appearance to recent CT. No free air. Werner Grace MD Abdomen/Pelvis CT 01/18/17 210 Signed Impressions: Service Date/Time: Wednesday, January 18, 2017 22:30 - CONCLUSION: 1. Proximal to mid small bowel ileus with transition zone identified in the right side of the pelvis characteristic of a partial small bowel obstruction. 2. Left hydronephrosis and hydroureter to the ureterovesical junction without clear indication of obstructing process. 3. Colonic diverticulosis without evidence of active inflammation. 4. Cholelithiasis without evidence of biliary obstruction. 5. Ectatic atherosclerotic disease of the abdominal aorta. 6. Calculi identified in urinary bladder. Murtaza Alvarado MD Objective Remarks GENERAL: This is a well-nourished, well-developed patient, in no apparent distress. CARDIOVASCULAR: Regular rate and regular rhythm without murmurs, gallops, or rubs. RESPIRATORY: Clear to auscultation. Breath sounds equal bilaterally. No wheezes , rales, or rhonchi. GASTROINTESTINAL: Abdomen soft, mild generalized tenderness, nondistended. Normal, active bowel sounds MUSCULOSKELETAL: Extremities without clubbing, cyanosis, or edema. NEURO: Alert & Oriented x4 to person, place, time, situation. Moves all ext x4 Medications and IVs Current Medications Ondansetron HCl (Zofran Inj) 4 mg ONCE ONCE IVP Last administered on 21:12; Start 01/18/17 at 20:45; Stop 01/18/17 at 20:46; Status DC Sodium Chloride 1,000 ml @ 1,000 mls/hr Q1H IV Last administered on 01/18/17 21:13; Start 01/18/17 at 20:34; Stop 01/18/17 at 21:33; Status DC Sodium Chloride (NS Flush) 2 ml UNSCH PRN IV FLUSH FLUSH AFTER USING IV ACCESS ; Start 01/18/17 at 20:45 Diatrizoate Meglum/ Diatrizoate Sod ( Gastroview Liq) 18 ml STK-MED ONCE .ROUTE Last administered on 01/18/17 21:13; Start 01/18/17 at 21:07; Stop at 21:08; Status DC Pantoprazole Sodium (Protonix Inj) 40 mg Q24H IV PUSH Last administered on 01/19 23:51; Start 01/18/17 at 23:30 Potassium Chloride/Sodium Chloride 1,000 ml @ 100 mls/hr Q10H IV Last administered on 01/20/17 05:26; Start 01/18/17 at 23:30 Dextrose (D50w (Vial) Inj) 50 ml UNSCH PRN IV HYPOGLYCEMIA-SEE COMMENTS; Start 01/18/17 at 23:30 Glucagon (Glucagon Inj) 1 mg UNSCH PRN OTHER HYPOGLYCEMIA-SEE COMMENTS; Start 01/18/17 at 23:30 Sodium Chloride (NS Flush) 2 ml UNSCH PRN IV FLUSH FLUSH AFTER USING IV ACCESS ; Start 01/18/17 at 23:30 Sodium Chloride (NS Flush) 2 ml BID IV FLUSH Last administered on 01/20/17 09: 00; Start 01/19/17 at 09:00 Ondansetron HCl (Zofran Inj) 4 mg Q6H PRN IVP NAUSEA OR VOMITING Last administered on 01/20/17 10:29; Start 01/18/17 at 23:30 Ketorolac Tromethamine (Toradol Inj) 15 mg Q6H PRN IVP Pain 1-5; if unable to take PO; Start 01/18/17 at 23:30; Stop 01/23/17 at 23:29 Ketorolac Tromethamine (Toradol Inj) 30 mg Q6H PRN IVP Pain 6-10;if unable to take PO; Start 01/18/17 at 23:30; Stop 01/23/17 at 23:29 Morphine Sulfate (Morphine Inj) 2 mg Q3H PRN IV BREAKTHROUGH PAIN; Start at 23:30 Naloxone HCl (Narcan Inj) 0.4 mg UNSCH PRN IV SEE LABEL COMMENTS; Start at 23:30 Bisacodyl (Dulcolax Supp) 10 mg DAILY PRN RECTAL SEVERE CONSITIPATION; Start at 23:30 Bisacodyl (Dulcolax Supp) 10 mg ONCE ONCE RECTAL Last administered on 00:07; Start 01/18/17 at 23:30; Stop 01/18/17 at 23:31; Status DC Levofloxacin/ Dextrose 100 ml @ 100 mls/hr Q24H IV Last administered on 01:51; Start 01/19/17 at 02:00 A/P Assessment and Plan A/P Partial small bowel obstruction likely related to adhesions with extensive abdominal surgeries. started on liquid diet but couldn't tolerate- now with nausea/ emesis- put him back on NPO status- continue IV fluid, antiemetics and pain control. awaiting surgery follow-up and recommendations. Leukocytosis likely secondary to above. afebrile- Patient has abnormal urinalysis with no UTI symptoms. Empiric IV Levaquin. Follow-up cultures Mild hyponatremia. improved. Diabetes mellitus. Monitor fingerstick sugars sliding scale coverage. Hypoglycemia protocol DVT prophylaxis with SCD and early ambulation. Hold pharmacological prophylaxis may need surgical intervention Malachi Martinez MD Jan 20, 2017 12:07
--- NOTE | 2017-01-20 14:29 | HHI.PR ---
Subjective Subjective Notes feels a little better today, denies abdominal pain, denies BM or flatus. Had emesis last night with liquid diet. daughter at bedside visiting. Objective Vitals/I&O Vital Signs Date Time Temp Pulse Resp B/P (MAP) Pulse Ox O2 Delivery O2 Flow Rate FiO2 01/20/17 12:06 98.7 96 21 139/87 (104) 95 01/20/17 03:31 21 01/19/17 01:07 Room Air 01/18/17 22:19 Labs Laboratory Tests Test 01/20/17 09:44 White Blood Count 18.3 Red Blood Count 4.90 Hemoglobin 16.3 Hematocrit 50.2 Mean Corpuscular Volume 102.5 Mean Corpuscular Hemoglobin 33.4 Mean Corpuscular Hemoglobin Concent 32.6 Red Cell Distribution Width 12.9 Platelet Count 233 Mean Platelet Volume 9.9 Neutrophils (%) (Auto) 90.2 Lymphocytes (%) (Auto) 3.0 Monocytes (%) (Auto) 6.6 Eosinophils (%) (Auto) 0.1 Basophils (%) (Auto) 0.1 Neutrophils # (Auto) 16.5 Lymphocytes # (Auto) 0.5 Monocytes # (Auto) 1.2 Eosinophils # (Auto) 0.0 Basophils # (Auto) 0.0 CBC Comment DIFF FINAL Differential Comment Date/Time Source Procedure Growth Status 01/19/17 00:00 Urine Clean Catch Urine Culture - Final 10-50,000 CFU/ML MIXED GRAM POSITIVE ... Complete Cardiovascular: Regular Lungs: Clear Abdomen: Non-distended, Non-tender, BS normal A/P Assessment and Plan PSBO I had a long discussion with patient and daughter at bedside regarding options for treatment - observation versus surgery. At this point they prefer observation. I recommended NG tube placement and he agreed. I placed NG and got out 1100 cc of yellow fluid. I had advised them I am going to order a limited SBFT xray today. If his NG output is high or xray shows no progress of contrast he will need to go to the OR. Overall his abdomen is very soft and nontender. He denies cramps and says he feels much better than he did on Wednesday. Mark Anders MD Jan 20, 2017 14:28
[2017-01-20] MEDS: PANTOPRAZOLE SODIUM 40 MG VIAL IV PUSH SCH (22:41)
[2017-01-21] VITALS (7 sets, daily range): BP systolic 102–116; BP diastolic 66–84; PULSE 60–100; RESP 17–19; TEMP 96–96.8; O2SAT 93–97
[2017-01-21] MEDS: LEVOFLOXACIN 500 MG PREMIX INJ 100 ML IV SCH (01:50)
[2017-01-21 08:07] LABS: BICARBONATE 25.5 MEQ/L (21.0-32.0)
[2017-01-21 08:09] LABS: AUTOMATED NEUTROPHIL # 13.7 TH/MM3 (1.8-7.7); BASOPHIL % 0.1 % (0.0-2.0); EOSINOPHIL # 0.1 TH/MM3 (0-0.4); EOSINOPHIL % 0.3 % (0.0-4.0); HEMATOCRIT 47.5 % (39.0-51.0); LYMPH % 4.9 % (9.0-44.0); LYMPHOCYTE # 0.8 TH/MM3 (1.0-4.8); MEAN CORPUSCULAR HEMOGLOBIN 32.9 PG (27.0-34.0); MEAN CORPUSCULAR HGB CONC 32.3 % (32.0-36.0); MONO % 7.9 % (0.0-8.0); NEUT % 86.8 % (16.0-70.0); PLATELET COUNT 223 TH/MM3 (150-450); RED BLOOD COUNT 4.65 MIL/MM3 (4.50-5.90); RED CELL DISTRIBUTION WIDTH 13.2 % (11.6-17.2); WHITE BLOOD COUNT 15.7 TH/MM3 (4.0-11.0)
[2017-01-21 08:11] LABS: HEMO FLAGS AUTO DIFF
--- NOTE | 2017-01-21 08:18 | RADRPT ---
EXAM DATE/TIME: 01/20/2017 15:01 [facility] COMPARISON: CT ABDOMEN & PELVIS W/O CONTRAST, January 18, 2017, 22:30. ABDOMEN KUB ONLY, January 19, 2017, 6:36. INDICATIONS : Evaluate for small bowel obstruction. FLUORO TIME: 0 minutes IMAGE COUNT: 7 CONTRAST: MD Erazo IMAGING TIME(S): 2 hrs, 6 hrs16 hr MEDICAL HISTORY : Gastroesophageal reflux disease. Hernia. Diabetes mellitus type 2.Renal cancer. Hypertension. SURGICAL HISTORY : Appendectomy. Inguinal hernia repair.Right kidney removed. Umbilical hernia repair. ENCOUNTER: Subsequent ACUITY: 2 days PAIN SCORE: 0/10 LOCATION: Abdomen. FINDINGS: Gastrografin small bowel series was performed. Imaging was taken at 2 hours, 6 hours and 16 hours. The examination demonstrates diffuse dilation of the small bowel. There is Gastrografin within the co miguel at 16 hours. Exam would suggest severe ileus. There is a nasogastric tube within the stomach. No free air is seen. CONCLUSION: 1. Diffuse dilation of the small bowel. There was passage of contrast through the small bowel and int o the colon at 16 hours. Pete Caputo MD on January 21, 2017 at 8:05 Board Certified Radiologist. This report was verified electronically.
[2017-01-21] MEDS: SODIUM CHLOR 0.9% 1000 ML INJ 1,000 ML IV SCH ×2 (08:45→20:20)
[2017-01-21] MEDS: SODIUM CHLORIDE 0.9% FLUSH 10 ML FLUSH IV FLUSH SCH ×2 (08:46→20:20)
[2017-01-21 09:49] LABS: PLATELET ESTIMATE SMEAR NORMAL (NORMAL); PLATELET MORPHOLOGY ENLARGED (NORMAL); SCAN/DIFF AUTO DIFF CONFIRMED
--- NOTE | 2017-01-21 11:59 | HHI.PR ---
Subjective Remarks in no acute distress. now NG tube in place. hasn't had any BM yet- hasn't passed gas. has on and off abdominal pain. Objective Vitals Vital Signs Date Time Temp Pulse Resp B/P (MAP) Pulse Ox O2 Delivery O2 Flow Rate FiO2 01/21/17 08:00 96.3 95 19 112/82 (92) 93 01/21/17 04:15 96.8 80 18 112/72 (85) 97 01/21/17 00:36 96.6 100 17 102/68 (79) 93 01/20/17 22:28 101 01/20/17 20:48 98.5 98 18 124/69 (87) 92 01/20/17 15:54 96.7 95 20 128/81 (97) 94 01/20/17 12:06 98.7 96 21 139/87 (104) 95 I/O 01/20/17 01/20/17 01/20/17 01/21/17 01/21/17 01/21/17 07:00 15:00 23:00 07:00 15:00 23:00 Intake Total 1100 ml 240 ml 1000 ml Output Total 1800 ml 900 ml Balance 1100 ml 240 ml -800 ml -900 ml Intake Oral 240 ml IV Total 1100 ml 1000 ml Output Urine Total 300 ml Gastric Drainage Total 600 ml Emesis 1300 ml Drainage Total 500 ml # Voids 1 Result Diagram: 01/21/17 0443 01/21/17 0445 Imaging Last Impressions Small Bowel X-Ray 01/20/17 0000 Signed Impressions: Service Date/Time: Friday, January 20, 2017 15:01 - CONCLUSION: 1. Diffuse dilation of the small bowel. There was passage of contrast through the small bowel and into the colon at 16 hours. Pete Caputo MD Abdomen X-Ray 01/19/17 0600 Signed Impressions: Service Date/Time: Thursday, January 19, 2017 06:36 - CONCLUSION: 1. Mild gaseous distention of small bowel similar in appearance to recent CT. No free air. Werner Grace MD Abdomen/Pelvis CT 01/18/17 2101 Signed Impressions: Service Date/Time: Wednesday, January 18, 2017 22:30 - CONCLUSION: 1. Proximal to mid small bowel ileus with transition zone identified in the right side of the pelvis characteristic of a partial small bowel obstruction. 2. Left hydronephrosis and hydroureter to the ureterovesical junction without clear indication of obstructing process. 3. Colonic diverticulosis without evidence of active inflammation. 4. Cholelithiasis without evidence of biliary obstruction. 5. Ectatic atherosclerotic disease of the abdominal aorta. 6. Calculi identified in urinary bladder. Murtaza Alvarado MD Objective Remarks GENERAL: in no apparent distress with NG tube in place. CARDIOVASCULAR: Regular rate and regular rhythm without murmurs, gallops, or rubs. RESPIRATORY: Clear to auscultation. Breath sounds equal bilaterally. No wheezes , rales, or rhonchi. GASTROINTESTINAL: Abdomen soft, mild generalized tenderness, nondistended. Normal, active bowel sounds MUSCULOSKELETAL: Extremities without clubbing, cyanosis, or edema. NEURO: Alert & Oriented x4 to person, place, time, situation. Moves all ext x4 Medications and IVs Current Medications Ondansetron HCl (Zofran Inj) 4 mg ONCE ONCE IVP Last administered on 21:12; Start 01/18/17 at 20:45; Stop 01/18/17 at 20:46; Status DC Sodium Chloride 1,000 ml @ 1,000 mls/hr Q1H IV Last administered on 01/18/17 21:13; Start 01/18/17 at 20:34; Stop 01/18/17 at 21:33; Status DC Sodium Chloride (NS Flush) 2 ml UNSCH PRN IV FLUSH FLUSH AFTER USING IV ACCESS ; Start 01/18/17 at 20:45 Diatrizoate Meglum/ Diatrizoate Sod ( Gastroview Liq) 18 ml STK-MED ONCE .ROUTE Last administered on 01/18/17 21:13; Start 01/18/17 at 21:07; Stop at 21:08; Status DC Pantoprazole Sodium (Protonix Inj) 40 mg Q24H IV PUSH Last administered on 01/20 22:41; Start 01/18/17 at 23:30 Potassium Chloride/Sodium Chloride 1,000 ml @ 100 mls/hr Q10H IV Last administered on 01/20/17 22:42; Start 01/18/17 at 23:30; Stop 01/21/17 at 08:23 ; Status DC Dextrose (D50w (Vial) Inj) 50 ml UNSCH PRN IV HYPOGLYCEMIA-SEE COMMENTS; Start 01/18/17 at 23:30 Glucagon (Glucagon Inj) 1 mg UNSCH PRN OTHER HYPOGLYCEMIA-SEE COMMENTS; Start 01/18/17 at 23:30 Sodium Chloride (NS Flush) 2 ml UNSCH PRN IV FLUSH FLUSH AFTER USING IV ACCESS ; Start 01/18/17 at 23:30 Sodium Chloride (NS Flush) 2 ml BID IV FLUSH Last administered on 01/21/17 08: 46; Start 01/19/17 at 09:00 Ondansetron HCl (Zofran Inj) 4 mg Q6H PRN IVP NAUSEA OR VOMITING Last administered on 01/20/17 10:29; Start 01/18/17 at 23:30 Ketorolac Tromethamine (Toradol Inj) 15 mg Q6H PRN IVP Pain 1-5; if unable to take PO; Start 01/18/17 at 23:30; Stop 01/23/17 at 23:29 Ketorolac Tromethamine (Toradol Inj) 30 mg Q6H PRN IVP Pain 6-10;if unable to take PO; Start 01/18/17 at 23:30; Stop 01/23/17 at 23:29 Morphine Sulfate (Morphine Inj) 2 mg Q3H PRN IV BREAKTHROUGH PAIN; Start at 23:30 Naloxone HCl (Narcan Inj) 0.4 mg UNSCH PRN IV SEE LABEL COMMENTS; Start at 23:30 Bisacodyl (Dulcolax Supp) 10 mg DAILY PRN RECTAL SEVERE CONSITIPATION; Start at 23:30 Bisacodyl (Dulcolax Supp) 10 mg ONCE ONCE RECTAL Last administered on 00:07; Start 01/18/17 at 23:30; Stop 01/18/17 at 23:31; Status DC Levofloxacin/ Dextrose 100 ml @ 100 mls/hr Q24H IV Last administered on 01:50; Start 01/19/17 at 02:00 Sodium Chloride 1,000 ml @ 100 mls/hr Q10H IV Last administered on 01/21/17 08:45; Start 01/21/17 at 08:30 A/P Assessment and Plan A/P Partial small bowel obstruction likely related to adhesions with extensive abdominal surgeries. started on liquid diet but couldn't tolerate- now with nausea/ emesis- NG tube in place. still NPO- continue IV fluid, antiemetics and pain control. surgery following. Leukocytosis likely secondary to above. afebrile- Patient has abnormal urinalysis with no UTI symptoms. continue IV Levaquin. hyperkalemia- stop potassium supplement- repeat potassium level today. Mild hyponatremia. improved. Diabetes mellitus. Monitor fingerstick sugars sliding scale coverage. Hypoglycemia protocol DVT prophylaxis with SCD and early ambulation. Hold pharmacological prophylaxis for now. Malachi Martinez MD Jan 21, 2017 11:59
--- NOTE | 2017-01-21 12:38 | HHI.PR ---
Subjective Subjective Notes Up to chair No issues overnight Not passing gas Objective Vitals/I&O Vital Signs Date Time Temp Pulse Resp B/P (MAP) Pulse Ox O2 Delivery O2 Flow Rate FiO2 01/21/17 08:00 96.3 95 19 112/82 (92) 93 01/20/17 03:31 21 01/19/17 01:07 Room Air 01/18/17 22:19 Labs Laboratory Tests Test 01/21/17 04:43 01/21/17 04:45 White Blood Count 15.7 Red Blood Count 4.65 Hemoglobin 15.3 Hematocrit 47.5 Mean Corpuscular Volume 102.0 Mean Corpuscular Hemoglobin 32.9 Mean Corpuscular Hemoglobin Concent 32.3 Red Cell Distribution Width 13.2 Platelet Count 223 Mean Platelet Volume 9.9 Neutrophils (%) (Auto) 86.8 Lymphocytes (%) (Auto) 4.9 Monocytes (%) (Auto) 7.9 Eosinophils (%) (Auto) 0.3 Basophils (%) (Auto) 0.1 Neutrophils # (Auto) 13.7 Lymphocytes # (Auto) 0.8 Monocytes # (Auto) 1.2 Eosinophils # (Auto) 0.1 Basophils # (Auto) 0.0 CBC Comment AUTO DIFF Differential Comment AUTO DIFF CONFIRMED Platelet Estimate NORMAL Platelet Morphology Comment ENLARGED Blood Urea Nitrogen 25 Creatinine 0.66 Random Glucose 108 Calcium Level 7.7 Sodium Level 145 Potassium Level 6.0 Chloride Level 113 Carbon Dioxide Level 25.5 Anion Gap 7 Estimat Glomerular Filtration Rate 118 Date/Time Source Procedure Growth Status 01/19/17 00:00 Urine Clean Catch Urine Culture - Final 10-50,000 CFU/ML MIXED GRAM POSITIVE ... Complete Cardiovascular: Regular Lungs: Clear Abdomen: Other (abdomen soft non tender) Extremities: No edema Narrative Exam NGT to LIWS A/P Assessment and Plan 76 year old male with SBO -Continue NGT to LIWS -Okay for ice chips and popsicles -OOB and mobilize -IVF changed to NS due to high K -Labs in AM -SBFT shows contrast through to the small bowel and into colon -KUB at 1600 I CERTIFY AND ATTEST THAT I PERSONALLY EXAMINED THE PATIENT IN THEIR ROOM. MS DAVE DOCUMENTED OUR VISIT AND ENTERED ORDERS IN THE EMR UNDER MY DIRECT SUPERVISION. I REVIEWED THE CARE PLAN WITH THE FAMILY AND NURSING STAFF. Traci Haq MD, FACS [employer] Jan 21, 2017 12:38 Mark Anders MD Feb 02, 2017 15:01
--- NOTE | 2017-01-21 16:12 | RADRPT ---
EXAM DATE/TIME: 01/21/2017 15:41 [facility] COMPARISON: SMALL BOWEL SERIES W/GASTROGRAFIN, January 20, 2017, 15:01. INDICATIONS : Evaluate smallbowel obstruction MEDICAL HISTORY : Gastroesophageal reflux disease. Hernia. Diabetes mellitus type 2.Renal SURGICAL HISTORY : Appendectomy. Inguinal hernia repair.Right kidney removed. Umbilical ENCOUNTER: Subsequent ACUITY: 2 days PAIN SCORE: 0/10 LOCATION: Abdomen FINDINGS: The exam demonstrates some oral contrast within multiple loops of dilated small bowel. There is oral contrast seen within the colon. CONCLUSION: 1. Diffuse dilation of the small bowel however, there is some oral contrast present within the ascend ing colon. The exam is unchanged since earlier film of 01/20/17. Pete Caputo MD on January 21, 2017 at 16:09 Board Certified Radiologist. This report was verified electronically.
[2017-01-21] MEDS: PANTOPRAZOLE SODIUM 40 MG VIAL IV PUSH SCH (20:20)
[2017-01-22] VITALS: BP 134/75; PULSE 71; RESP 18; TEMP 96.5; O2SAT 94
[2017-01-22] MEDS: LEVOFLOXACIN 500 MG PREMIX INJ 100 ML IV SCH ×2 (02:00→23:48)
[2017-01-22] MEDS: SODIUM CHLOR 0.9% 1000 ML INJ 1,000 ML IV SCH ×3 (02:03→23:47)
[2017-01-22 04:50] VITALS: BP 111/82; PULSE 83; RESP 18; TEMP 96.1; O2SAT 96
[2017-01-22 06:05] LABS: AUTOMATED NEUTROPHIL # 16.7 TH/MM3 (1.8-7.7); BASOPHIL # 0.1 TH/MM3 (0-0.2); BASOPHIL % 0.3 % (0.0-2.0); EOSINOPHIL % 0.2 % (0.0-4.0); HEMO FLAGS DIFF FINAL; LYMPH % 4.3 % (9.0-44.0); LYMPHOCYTE # 0.8 TH/MM3 (1.0-4.8); MEAN CELL VOLUME 102.5 FL (80.0-100.0); MEAN CORPUSCULAR HEMOGLOBIN 33.2 PG (27.0-34.0); MEAN CORPUSCULAR HGB CONC 32.4 % (32.0-36.0); NEUT % 88.2 % (16.0-70.0); PLATELET COUNT 169 TH/MM3 (150-450); RED BLOOD COUNT 4.68 MIL/MM3 (4.50-5.90); WHITE BLOOD COUNT 18.9 TH/MM3 (4.0-11.0)
[2017-01-22 06:32] LABS: POTASSIUM 3.7 MEQ/L (3.5-5.1)
[2017-01-22 08:00] VITALS: BP 137/86; PULSE 52; PULSE 87; RESP 17; TEMP 95.1; O2SAT 97
[2017-01-22] MEDS: SODIUM CHLORIDE 0.9% FLUSH 10 ML FLUSH IV FLUSH SCH ×2 (09:00→20:16)
--- NOTE | 2017-01-22 10:04 | HHI.PR ---
Subjective Subjective Notes Resting in bed Tolerating popsicles Objective Vitals/I&O Vital Signs Date Time Temp Pulse Resp B/P (MAP) Pulse Ox O2 Delivery O2 Flow Rate FiO2 01/22/17 08:00 95.1 52 17 137/86 (103) 97 01/20/17 03:31 21 01/19/17 01:07 Room Air 01/18/17 22:19 Labs Laboratory Tests Test 01/21/17 15:23 01/22/17 04:47 Potassium Level 4.1 3.7 White Blood Count 18.9 Red Blood Count 4.68 Hemoglobin 15.5 Hematocrit 48.0 Mean Corpuscular Volume 102.5 Mean Corpuscular Hemoglobin 33.2 Mean Corpuscular Hemoglobin Concent 32.4 Red Cell Distribution Width 13.0 Platelet Count 169 Mean Platelet Volume 10.6 Neutrophils (%) (Auto) 88.2 Lymphocytes (%) (Auto) 4.3 Monocytes (%) (Auto) 7.0 Eosinophils (%) (Auto) 0.2 Basophils (%) (Auto) 0.3 Neutrophils # (Auto) 16.7 Lymphocytes # (Auto) 0.8 Monocytes # (Auto) 1.3 Eosinophils # (Auto) 0.0 Basophils # (Auto) 0.1 CBC Comment DIFF FINAL Differential Comment Blood Urea Nitrogen 30 Creatinine 0.62 Random Glucose 98 Calcium Level 8.4 Sodium Level 142 Chloride Level 110 Carbon Dioxide Level 22.0 Anion Gap 10 Estimat Glomerular Filtration Rate 127 Date/Time Source Procedure Growth Status 01/19/17 00:00 Urine Clean Catch Urine Culture - Final 10-50,000 CFU/ML MIXED GRAM POSITIVE ... Complete Cardiovascular: Regular Lungs: Clear Abdomen: Non-distended, Non-tender Extremities: No edema Narrative Exam NGT to LIWS A/P Assessment and Plan 76 year old male with SBO -Clamp NGT--- check residuals in 6 hours; DC if less than 200 cc and start clear liquids -OOB and mobilize -Continue IVF -WIll attempt non operative treatment I CERTIFY AND ATTEST THAT I PERSONALLY EXAMINED THE PATIENT IN THEIR ROOM. JOLIE DOCUMENTED OUR VISIT AND ENTERED ORDERS IN THE EMR UNDER MY DIRECT SUPERVISION. I REVIEWED THE CARE PLAN WITH THE FAMILY AND NURSING STAFF. PARVEEN LEÓN MD [facility] Traci Carias [facility] Jan 22, 2017 10:04 Parveen León MD Feb 02, 2017 15:02
--- NOTE | 2017-01-22 10:48 | HHI.PR ---
Subjective Remarks resting comfortably with no distress. NG tube in place. no vomiting- has mild abdominal pain. no other complaints. d/w the RN. Objective Vitals Vital Signs Date Time Temp Pulse Resp B/P (MAP) Pulse Ox O2 Delivery O2 Flow Rate FiO2 01/22/17 08:00 95.1 52 17 137/86 (103) 97 01/22/17 08:00 95.1 52 17 97 01/22/17 04:50 96.1 83 18 111/82 (92) 96 01/22/17 00:00 96.5 71 18 134/75 (94) 94 01/21/17 20:38 96.0 90 17 112/70 (84) 96 01/21/17 20:00 67 01/21/17 16:00 96.2 60 19 111/66 (81) 95 01/21/17 12:00 96.2 89 17 116/84 (95) 93 I/O 01/21/17 01/21/17 01/21/17 01/22/17 01/22/17 01/22/17 07:00 15:00 23:00 07:00 15:00 23:00 Intake Total 270 ml 180 ml 870 ml Output Total 900 ml 230 ml 500 ml 750 ml 200 ml Balance -900 ml 40 ml -320 ml 120 ml -200 ml Intake Oral 270 ml 180 ml IV Total 870 ml Output Urine Total 300 ml 200 ml 600 ml Gastric Drainage Total 600 ml 300 ml 150 ml Drainage Total 230 ml 200 ml # Bowel Movements 0 0 Result Diagram: 01/22/17 0447 01/22/17 0447 Imaging Last Impressions Abdomen X-Ray 01/21/17 1600 Signed Impressions: Service Date/Time: December 15:41 - CONCLUSION: 1. Diffuse dilation of the small bowel however, there is some oral contrast present within the ascending colon. The exam is unchanged since earlier film of 01/20/17. Pete Caputo MD Small Bowel X-Ray 01/20/17 0000 Signed Impressions: Service Date/Time: Friday, January 20, 2017 15:01 - CONCLUSION: 1. Diffuse dilation of the small bowel. There was passage of contrast through the small bowel and into the colon at 16 hours. Pete Caputo MD Abdomen/Pelvis CT 01/18/17 2101 Signed Impressions: Service Date/Time: Wednesday, January 18, 2017 22:30 - CONCLUSION: 1. Proximal to mid small bowel ileus with transition zone identified in the right side of the pelvis characteristic of a partial small bowel obstruction. 2. Left hydronephrosis and hydroureter to the ureterovesical junction without clear indication of obstructing process. 3. Colonic diverticulosis without evidence of active inflammation. 4. Cholelithiasis without evidence of biliary obstruction. 5. Ectatic atherosclerotic disease of the abdominal aorta. 6. Calculi identified in urinary bladder. Murtaza Alvarado MD Objective Remarks GENERAL: in no apparent distress with NG tube in place. CARDIOVASCULAR: Regular rate and regular rhythm without murmurs, gallops, or rubs. RESPIRATORY: Clear to auscultation. Breath sounds equal bilaterally. No wheezes , rales, or rhonchi. GASTROINTESTINAL: Abdomen soft, mild generalized tenderness, nondistended. Normal, active bowel sounds MUSCULOSKELETAL: Extremities without clubbing, cyanosis, or edema. NEURO: Alert & Oriented x4 to person, place, time, situation. Moves all ext x4 Medications and IVs Current Medications Ondansetron HCl (Zofran Inj) 4 mg ONCE ONCE IVP Last administered on 21:12; Start 01/18/17 at 20:45; Stop 01/18/17 at 20:46; Status DC Sodium Chloride 1,000 ml @ 1,000 mls/hr Q1H IV Last administered on 01/18/17 21:13; Start 01/18/17 at 20:34; Stop 01/18/17 at 21:33; Status DC Sodium Chloride (NS Flush) 2 ml UNSCH PRN IV FLUSH FLUSH AFTER USING IV ACCESS ; Start 01/18/17 at 20:45 Diatrizoate Meglum/ Diatrizoate Sod ( Gastroview Liq) 18 ml STK-MED ONCE .ROUTE Last administered on 01/18/17 21:13; Start 01/18/17 at 21:07; Stop at 21:08; Status DC Pantoprazole Sodium (Protonix Inj) 40 mg Q24H IV PUSH Last administered on 01/21 20:20; Start 01/18/17 at 23:30 Potassium Chloride/Sodium Chloride 1,000 ml @ 100 mls/hr Q10H IV Last administered on 01/20/17 22:42; Start 01/18/17 at 23:30; Stop 01/21/17 at 08:23 ; Status DC Dextrose (D50w (Vial) Inj) 50 ml UNSCH PRN IV HYPOGLYCEMIA-SEE COMMENTS; Start 01/18/17 at 23:30 Glucagon (Glucagon Inj) 1 mg UNSCH PRN OTHER HYPOGLYCEMIA-SEE COMMENTS; Start 01/18/17 at 23:30 Sodium Chloride (NS Flush) 2 ml UNSCH PRN IV FLUSH FLUSH AFTER USING IV ACCESS ; Start 01/18/17 at 23:30 Sodium Chloride (NS Flush) 2 ml BID IV FLUSH Last administered on 01/21/17 08: 46; Start 01/19/17 at 09:00 Ondansetron HCl (Zofran Inj) 4 mg Q6H PRN IVP NAUSEA OR VOMITING Last administered on 01/20/17 10:29; Start 01/18/17 at 23:30 Ketorolac Tromethamine (Toradol Inj) 15 mg Q6H PRN IVP Pain 1-5; if unable to take PO; Start 01/18/17 at 23:30; Stop 01/23/17 at 23:29 Ketorolac Tromethamine (Toradol Inj) 30 mg Q6H PRN IVP Pain 6-10;if unable to take PO; Start 01/18/17 at 23:30; Stop 01/23/17 at 23:29 Morphine Sulfate (Morphine Inj) 2 mg Q3H PRN IV BREAKTHROUGH PAIN; Start at 23:30 Naloxone HCl (Narcan Inj) 0.4 mg UNSCH PRN IV SEE LABEL COMMENTS; Start at 23:30 Bisacodyl (Dulcolax Supp) 10 mg DAILY PRN RECTAL SEVERE CONSITIPATION; Start at 23:30 Bisacodyl (Dulcolax Supp) 10 mg ONCE ONCE RECTAL Last administered on 00:07; Start 01/18/17 at 23:30; Stop 01/18/17 at 23:31; Status DC Levofloxacin/ Dextrose 100 ml @ 100 mls/hr Q24H IV Last administered on 02:00; Start 01/19/17 at 02:00 Sodium Chloride 1,000 ml @ 100 mls/hr Q10H IV Last administered on 01/22/17t 02:03; Start 01/21/17 at 08:30 A/P Assessment and Plan A/P Partial small bowel obstruction likely related to adhesions with extensive abdominal surgeries. NG tube in place. continue IV fluid, antiemetics and pain control. surgery following. Leukocytosis likely secondary to above. afebrile- Patient has abnormal urinalysis with no UTI symptoms. continue IV Levaquin. hyperkalemia- resolved. Mild hyponatremia. improved. Diabetes mellitus. Monitor fingerstick sugars sliding scale coverage. Hypoglycemia protocol DVT prophylaxis with SCD and early ambulation. Hold pharmacological prophylaxis for now. Malachi Martinez MD Jan 22, 2017 10:47
[2017-01-22] MEDS ORDERED: GLUCAGON 1 MG/ML VIAL OTHER PRN (11:45)
[2017-01-22] MEDS ORDERED: DEXTROSE 50% IN WATER 50 ML VIAL(D50) IV PRN (11:45)
[2017-01-22 12:00] VITALS: BP 124/70; PULSE 89; RESP 17; TEMP 96.4; O2SAT 96
[2017-01-22 16:00] VITALS: BP 132/70; PULSE 100; RESP 17; TEMP 95.6; O2SAT 96
[2017-01-22] MEDS: INSULIN ASPART SUPPLEMENTAL SCALE SQ SCH ×2 (16:00→20:16)
[2017-01-22 20:12] VITALS: PULSE 107
[2017-01-22] MEDS: PANTOPRAZOLE SODIUM 40 MG VIAL IV PUSH SCH (23:49)
[2017-01-23] VITALS (7 sets, daily range): BP systolic 103–133; BP diastolic 59–79; PULSE 60–101; RESP 17–20; TEMP 96–97.7; O2SAT 95–97
[2017-01-23] MEDS: INSULIN ASPART SUPPLEMENTAL SCALE SQ SCH ×4 (05:07→21:00)
[2017-01-23 05:56] LABS: AUTOMATED NEUTROPHIL # 15.4 TH/MM3 (1.8-7.7); BASOPHIL % 0.1 % (0.0-2.0); EOSINOPHIL # 0.1 TH/MM3 (0-0.4); EOSINOPHIL % 0.7 % (0.0-4.0); HEMATOCRIT 46.5 % (39.0-51.0); HEMO FLAGS DIFF FINAL; LYMPH % 4.7 % (9.0-44.0); LYMPHOCYTE # 0.8 TH/MM3 (1.0-4.8); MEAN CELL VOLUME 102.4 FL (80.0-100.0); MEAN CORPUSCULAR HEMOGLOBIN 33.1 PG (27.0-34.0); MEAN CORPUSCULAR HGB CONC 32.3 % (32.0-36.0); MONO % 6.7 % (0.0-8.0); NEUT % 87.8 % (16.0-70.0); PLATELET COUNT 154 TH/MM3 (150-450); RED BLOOD COUNT 4.54 MIL/MM3 (4.50-5.90); RED CELL DISTRIBUTION WIDTH 12.8 % (11.6-17.2); WHITE BLOOD COUNT 17.5 TH/MM3 (4.0-11.0)
[2017-01-23] MEDS: SODIUM CHLOR 0.9% 1000 ML INJ 1,000 ML IV SCH ×2 (08:15→23:03)
[2017-01-23] MEDS: SODIUM CHLORIDE 0.9% FLUSH 10 ML FLUSH IV FLUSH SCH ×2 (08:15→23:00)
--- NOTE | 2017-01-23 08:48 | HHI.PR ---
Subjective Remarks f/u; bowel obstruction NG tube has been removed. looks more comfortable today. no nausea, vomiting. abdominal pain overall improving. no BM yet but is passing gas. afebrile. Objective Vitals Vital Signs Date Time Temp Pulse Resp B/P (MAP) Pulse Ox O2 Delivery O2 Flow Rate FiO2 01/23/17 04:00 97.2 84 18 109/74 (86) 95 01/23/17 00:00 97.7 86 20 113/72 (86) 97 01/22/17 20:12 107 01/22/17 16:00 95.6 100 17 132/70 (90) 96 01/22/17 12:00 96.4 89 17 124/70 (88) 96 I/O 01/22/17 01/22/17 01/22/17 01/23/17 01/23/17 01/23/17 07:00 15:00 23:00 07:00 15:00 23:00 Intake Total 870 ml 1000 ml 2106 ml 812 ml Output Total 750 ml 200 ml 600 ml 450 ml Balance 120 ml 800 ml 1506 ml 362 ml Intake Oral 480 ml IV Total 870 ml 1000 ml 1626 ml 812 ml Output Urine Total 600 ml 600 ml 450 ml Gastric Drainage Total 150 ml Drainage Total 200 ml # Bowel Movements 0 Result Diagram: 01/23/17 0431 01/22/17 0447 Imaging Last Impressions Abdomen X-Ray 01/21/17 1600 Signed Impressions: Service Date/Time: December 15:41 - CONCLUSION: 1. Diffuse dilation of the small bowel however, there is some oral contrast present within the ascending colon. The exam is unchanged since earlier film of 01/20/17. Pete Caputo MD Small Bowel X-Ray 01/20/17 0000 Signed Impressions: Service Date/Time: Friday, January 20, 2017 15:01 - CONCLUSION: 1. Diffuse dilation of the small bowel. There was passage of contrast through the small bowel and into the colon at 16 hours. Pete Caputo MD Abdomen/Pelvis CT 01/18/17 2101 Signed Impressions: Service Date/Time: Wednesday, January 18, 2017 22:30 - CONCLUSION: 1. Proximal to mid small bowel ileus with transition zone identified in the right side of the pelvis characteristic of a partial small bowel obstruction. 2. Left hydronephrosis and hydroureter to the ureterovesical junction without clear indication of obstructing process. 3. Colonic diverticulosis without evidence of active inflammation. 4. Cholelithiasis without evidence of biliary obstruction. 5. Ectatic atherosclerotic disease of the abdominal aorta. 6. Calculi identified in urinary bladder. Murtaza Alvarado MD Objective Remarks GENERAL: in no apparent distress . CARDIOVASCULAR: Regular rate and regular rhythm without murmurs, gallops, or rubs. RESPIRATORY: Clear to auscultation. Breath sounds equal bilaterally. No wheezes , rales, or rhonchi. GASTROINTESTINAL: Abdomen soft, mild generalized tenderness, nondistended. Normal, active bowel sounds MUSCULOSKELETAL: Extremities without clubbing, cyanosis, or edema. NEURO: Alert & Oriented x4 to person, place, time, situation. Moves all ext x4 Medications and IVs Current Medications Ondansetron HCl (Zofran Inj) 4 mg ONCE ONCE IVP Last administered on 21:12; Start 01/18/17 at 20:45; Stop 01/18/17 at 20:46; Status DC Sodium Chloride 1,000 ml @ 1,000 mls/hr Q1H IV Last administered on 01/18/17 21:13; Start 01/18/17 at 20:34; Stop 01/18/17 at 21:33; Status DC Sodium Chloride (NS Flush) 2 ml UNSCH PRN IV FLUSH FLUSH AFTER USING IV ACCESS ; Start 01/18/17 at 20:45 Diatrizoate Meglum/ Diatrizoate Sod ( Gastroview Liq) 18 ml STK-MED ONCE .ROUTE Last administered on 01/18/17 21:13; Start 01/18/17 at 21:07; Stop at 21:08; Status DC Pantoprazole Sodium (Protonix Inj) 40 mg Q24H IV PUSH Last administered on 01/22 23:49; Start 01/18/17 at 23:30 Potassium Chloride/Sodium Chloride 1,000 ml @ 100 mls/hr Q10H IV Last administered on 01/20/17 22:42; Start 01/18/17 at 23:30; Stop 01/21/17 at 08:23 ; Status DC Dextrose (D50w (Vial) Inj) 50 ml UNSCH PRN IV HYPOGLYCEMIA-SEE COMMENTS; Start 01/18/17 at 23:30; Stop 01/22/17 at 11:38; Status DC Glucagon (Glucagon Inj) 1 mg UNSCH PRN OTHER HYPOGLYCEMIA-SEE COMMENTS; Start 01/18/17 at 23:30; Stop 01/22/17 at 11:38; Status DC Sodium Chloride (NS Flush) 2 ml UNSCH PRN IV FLUSH FLUSH AFTER USING IV ACCESS ; Start 01/18/17 at 23:30 Sodium Chloride (NS Flush) 2 ml BID IV FLUSH Last administered on 01/22/17 20: 16; Start 01/19/17 at 09:00 Ondansetron HCl (Zofran Inj) 4 mg Q6H PRN IVP NAUSEA OR VOMITING Last administered on 01/20/17 10:29; Start 01/18/17 at 23:30 Ketorolac Tromethamine (Toradol Inj) 15 mg Q6H PRN IVP Pain 1-5; if unable to take PO; Start 01/18/17 at 23:30; Stop 01/23/17 at 23:29 Ketorolac Tromethamine (Toradol Inj) 30 mg Q6H PRN IVP Pain 6-10;if unable to take PO; Start 01/18/17 at 23:30; Stop 01/23/17 at 23:29 Morphine Sulfate (Morphine Inj) 2 mg Q3H PRN IV BREAKTHROUGH PAIN; Start at 23:30 Naloxone HCl (Narcan Inj) 0.4 mg UNSCH PRN IV SEE LABEL COMMENTS; Start at 23:30 Bisacodyl (Dulcolax Supp) 10 mg DAILY PRN RECTAL SEVERE CONSITIPATION Last administered on 01/22/17 20:16; Start 01/18/17 at 23:30 Bisacodyl (Dulcolax Supp) 10 mg ONCE ONCE RECTAL Last administered on 00:07; Start 01/18/17 at 23:30; Stop 01/18/17 at 23:31; Status DC Levofloxacin/ Dextrose 100 ml @ 100 mls/hr Q24H IV Last administered on 23:48; Start 01/19/17 at 02:00 Sodium Chloride 1,000 ml @ 100 mls/hr Q10H IV Last administered on 01/23/17t 08:15; Start 01/21/17 at 08:30 Dextrose (D50w (Vial) Inj) 50 ml UNSCH PRN IV HYPOGLYCEMIA-SEE COMMENTS; Start 01/22/17 at 11:45 Glucagon (Glucagon Inj) 1 mg UNSCH PRN OTHER HYPOGLYCEMIA-SEE COMMENTS; Start 01/22/17 at 11:45 Insulin Aspart (NovoLOG SUPPLEMENTAL SCALE) 1 ACHS SLIDING SCALE SQ ; Start at 16:00 A/P Assessment and Plan A/P Partial small bowel obstruction likely related to adhesions with extensive abdominal surgeries. NG tube has been removed. on clear liquid diet. continue IV fluid, antiemetics and pain control. surgery following. Leukocytosis likely secondary to above/ with abnormal UA- improving- afebrile- continue IV Levaquin. hyperkalemia- resolved. Mild hyponatremia. improved. Diabetes mellitus. Monitor fingerstick sugars sliding scale coverage. DVT prophylaxis with SCD and early ambulation. chemical prophylaxis when ok with surgery. Malachi Martinez MD Jan 23, 2017 08:48
--- NOTE | 2017-01-23 10:51 | HHI.PR ---
Subjective Subjective Notes feels ok, reports small bm and flatus with suppository, tolerating liquids so far. Objective Vitals/I&O Vital Signs Date Time Temp Pulse Resp B/P (MAP) Pulse Ox O2 Delivery O2 Flow Rate FiO2 01/23/17 08:00 97.5 95 19 133/79 (97) 96 01/20/17 03:31 21 Labs Laboratory Tests Test 01/23/17 04:31 White Blood Count 17.5 Red Blood Count 4.54 Hemoglobin 15.0 Hematocrit 46.5 Mean Corpuscular Volume 102.4 Mean Corpuscular Hemoglobin 33.1 Mean Corpuscular Hemoglobin Concent 32.3 Red Cell Distribution Width 12.8 Platelet Count 154 Mean Platelet Volume 10.9 Neutrophils (%) (Auto) 87.8 Lymphocytes (%) (Auto) 4.7 Monocytes (%) (Auto) 6.7 Eosinophils (%) (Auto) 0.7 Basophils (%) (Auto) 0.1 Neutrophils # (Auto) 15.4 Lymphocytes # (Auto) 0.8 Monocytes # (Auto) 1.2 Eosinophils # (Auto) 0.1 Basophils # (Auto) 0.0 CBC Comment DIFF FINAL Differential Comment Date/Time Source Procedure Growth Status 01/19/17 00:00 Urine Clean Catch Urine Culture - Final 10-50,000 CFU/ML MIXED GRAM POSITIVE ... Complete Abdomen: Non-distended, Non-tender, BS normal A/P Assessment and Plan PSBO vs ileus continue to observe, will leave on liquids for now until bowels working well and patient hungry to OR if fails to progress Mark Anders MD Jan 23, 2017 10:51
[2017-01-23] MEDS ORDERED: NEOSTIGMINE 3 MG/3 ML SYR IV ONE (12:00)
[2017-01-23] MEDS ORDERED: LACTATED RINGER'S 1000 ML INJ 1,000 ML IV ONE (12:00)
[2017-01-23] MEDS ORDERED: PHENYLEPH/NS 1000 MCG/10 ML SYR IV ONE (12:00)
[2017-01-23] MEDS ORDERED: ONDANSETRON HCL 4 MG/2 ML VIAL IV PUSH ONE (12:00)
[2017-01-23] MEDS ORDERED: PROPOFOL 200 MG/20 ML AMP IV ONE (12:00)
[2017-01-23] MEDS: ONDANSETRON HCL 4 MG/2 ML VIAL IVP PRN (13:10)
--- NOTE | 2017-01-23 15:39 | RADRPT ---
EXAM DATE/TIME: 01/23/2017 15:16 [facility] COMPARISON: CT ABDOMEN & PELVIS W/O CONTRAST, January 18, 2017, 22:30. INDICATIONS : Lower abdomen pain. ORAL CONTRAST: No oral contrast ingested. RADIATION DOSE: 10.91 CTDIvol (mGy) MEDICAL HISTORY : Cardiovascular disease. renal cancer, inguinal hernia, diabetes SURGICAL HISTORY : Appendectomy. ENCOUNTER: Initial ACUITY: 1 day PAIN SCALE: 7/10 LOCATION: Bilateral lower quadrant TECHNIQUE: Volumetric scanning of the abdomen and pelvis was performed. Using automated exposure control and ad justment of the mA and/or kV according to patient size, radiation dose was kept as low as reasonably achievable to obtain optimal diagnostic quality images. DICOM format image data is available electro nically for review and comparison. FINDINGS: LOWER LUNGS: The lungs demonstrate stable mild dependent atelectasis. LIVER: Liver is normal in morphology and attenuation. The gallbladder is distended and there are multiple la yering stones identified within the lumen. SPLEEN: Normal size without lesion. PANCREAS: Within normal limits. KIDNEYS: Right kidney is surgically absent. There is stable hydronephrosis of the left kidney with dilation of the ureter to the level of the UVJ. There are calcifications identified along the right wall of the bladder at the site of prior right-sided ureter. No visible left-sided obstructing lesion. ADRENAL GLANDS: Within normal limits. VASCULAR: Extensive atherosclerosis without evidence of significant aneurysm. BOWEL/MESENTERY: There is mild progressive dilation of the small bowel with transition point again noted within the ri ght lower quadrant best seen on axial series 2 image 68. No obstructing lesion is seen within this re gion suggestive of a focal area of adhesion. Oral contrast material is seen within the dilated small bowel without evidence of contrast material within the decompressed small bowel. There is oral contra st material identified in the descending and sigmoid colon likely from the prior CT of January 18 7. ABDOMINAL WALL: Within normal limits. RETROPERITONEUM: There is no lymphadenopathy. BLADDER: No wall thickening or mass. Calcification is identified around the right bladder wall at the site of prior right ureter. REPRODUCTIVE: Prostatic calcifications are noted.. INGUINAL: There is no lymphadenopathy or hernia. MUSCULOSKELETAL: Within normal limits for patient age. CONCLUSION: Incomplete small bowel obstruction with contrast material now seen within the more distal colon. Ther e is progressive mild dilation of the small bowel with transition identified within the right lower q uadrant pelvis. No visible mass in this region suggestive of a focal area of adhesion.. Carmen Blanco MD on January 23, 2017 at 15:28 Board Certified Radiologist. This report was verified electronically.
[2017-01-23] MEDS ORDERED: ACETAMINOPHEN 1000 MG/100 ML 100 ML IV ONE (20:12)
[2017-01-23] MEDS ORDERED: MIDAZOLAM HCL 2 MG/2 ML VIAL ONE (20:12)
[2017-01-23] MEDS ORDERED: DEXAMETHASONE SOD PHOS 4 MG/ML VIAL ONE (20:12)
[2017-01-23] MEDS ORDERED: fentaNYL CITRATE 250 MCG/5 ML AMP ONE (20:12)
[2017-01-23] MEDS ORDERED: FAMOTIDINE 20 MG/2 ML VIAL ONE (20:13)
--- NOTE | 2017-01-23 21:33 | HHI.PR ---
Immediate Post Op Note Procedure Date: Jan 23, 2017 Pre Op Diagnosis: high grade psbo Post Op Diagnosis: same, single adhesion RLQ/pelvis Surgeon: Mark Anders [employer] Operator(s): mark marin Procedure: diagnostic laparoscopy. lysis of adhesion Findings: single adhesion on RIGHT pelvic sidewall causing internal hernia Complications: none Estimated blood loss: minimal Anesthesia: General Drains: None IVF Patient to: PACU Patient Condition: Good Mark Anders MD Jan 23, 2017 21:33
[2017-01-23] MEDS ORDERED: DO NOT ADM ANY ANTICOAGULANT DRUGS PRN (21:45)
[2017-01-23] MEDS: LEVOFLOXACIN 500 MG PREMIX INJ 100 ML IV SCH (23:04)
[2017-01-23] MEDS: PANTOPRAZOLE SODIUM 40 MG VIAL IV PUSH SCH (23:05)
[2017-01-24] VITALS (7 sets, daily range): BP systolic 94–126; BP diastolic 57–70; PULSE 72–105; RESP 17–19; TEMP 95.8–99.8; O2SAT 93–100
[2017-01-24] MEDS ORDERED: BUPIVACAINE HCL PF 0.25% 30 ML VIAL INFIL ONE (00:50)
[2017-01-24] MEDS: INSULIN ASPART SUPPLEMENTAL SCALE SQ SCH ×4 (04:58→20:26)
[2017-01-24 05:18] LABS: AUTOMATED NEUTROPHIL # 14.1 TH/MM3 (1.8-7.7); BASOPHIL # 0.1 TH/MM3 (0-0.2); BASOPHIL % 0.3 % (0.0-2.0); EOSINOPHIL # 0.1 TH/MM3 (0-0.4); EOSINOPHIL % 0.3 % (0.0-4.0); HEMATOCRIT 44.6 % (39.0-51.0); HEMO FLAGS DIFF FINAL; LYMPH % 3.2 % (9.0-44.0); LYMPHOCYTE # 0.5 TH/MM3 (1.0-4.8); MEAN CORPUSCULAR HEMOGLOBIN 33.7 PG (27.0-34.0); MEAN CORPUSCULAR HGB CONC 32.7 % (32.0-36.0); MONO % 7.7 % (0.0-8.0); NEUT % 88.5 % (16.0-70.0); PLATELET COUNT 132 TH/MM3 (150-450); RED BLOOD COUNT 4.33 MIL/MM3 (4.50-5.90); RED CELL DISTRIBUTION WIDTH 12.9 % (11.6-17.2)
[2017-01-24 06:04] LABS: BICARBONATE 20.3 MEQ/L (21.0-32.0)
[2017-01-24 06:43] LABS: CALCIUM-PROTEIN CORRECTED 8.6 MG/DL (8.5-10.1)
[2017-01-24] MEDS: SODIUM CHLORIDE 0.9% FLUSH 10 ML FLUSH IV FLUSH SCH ×2 (09:25→20:18)
--- NOTE | 2017-01-24 11:21 | HHI.PR ---
Subjective Remarks Follow-up for small bowel obstruction Patient stated that he is passing some gas. He also stated that he doesn't feel nauseous. He tolerated the popsicles. Patient stated that he doesn't have lower abdominal pain and that he now has right upper quadrant pain. He stated that this type of pain is new. He remains afebrile. No other complaints. Patient's daughter and are at the bedside. Objective Vitals Vital Signs Date Time Temp Pulse Resp B/P (MAP) Pulse Ox O2 Delivery O2 Flow Rate FiO2 01/24/17 08:00 98.7 93 19 94/63 (73) 96 01/24/17 04:00 95.9 86 17 120/67 (84) 100 01/24/17 00:00 95.8 72 18 98/70 (79) 96 01/23/17 22:35 97 01/23/17 22:15 98 13 110/67 (81) 98 Nasal Cannula 3 01/23/17 22:00 98 14 116/73 (87) 98 Nasal Cannula 3 01/23/17 21:45 97 14 106/64 (78) 98 Nasal Cannula 3 01/23/17 21:30 97.9 98 14 154/67 (96) 97 Nasal Cannula 3 01/23/17 20:00 96.0 60 18 103/67 (79) 97 01/23/17 16:00 97.1 99 19 114/59 (77) 95 01/23/17 12:00 96.9 101 17 112/64 (80) 95 I/O 01/23/17 01/23/17 01/23/17 01/24/17 01/24/17 01/24/17 06:59 14:59 22:59 06:59 14:59 22:59 Intake Total 812 ml 120 ml 770 ml 1809 ml 120 ml Output Total 450 ml 680 ml 350 ml Balance 362 ml 120 ml 90 ml 1459 ml 120 ml Intake Oral 120 ml 720 ml 0 ml 120 ml IV Total 812 ml 50 ml 1809 ml Output Urine Total 450 ml 680 ml 350 ml # Bowel Movements 1 Result Diagram: 01/24/1740901/24/17409 Objective Remarks GENERAL: in NAD CARDIOVASCULAR: Regular rate and rhythm without murmurs, gallops, or rubs. RESPIRATORY: Breath sounds equal bilaterally. No accessory muscle use. GASTROINTESTINAL: Abdomen soft, positive tenderness to palpation in the right upper quadrant. Negative for any peritoneal signs. Surgical wounds are dry clean and intact. Medications and IVs Current Medications Ondansetron HCl (Zofran Inj) 4 mg ONCE ONCE IVP Last administered on 21:12; Start 01/18/17 at 20:45; Stop 01/18/17 at 20:46; Status DC Sodium Chloride 1,000 ml @ 1,000 mls/hr Q1H IV Last administered on 01/18/17 21:13; Start 01/18/17 at 20:34; Stop 01/18/17 at 21:33; Status DC Sodium Chloride (NS Flush) 2 ml UNSCH PRN IV FLUSH FLUSH AFTER USING IV ACCESS ; Start 01/18/17 at 20:45 Diatrizoate Meglum/ Diatrizoate Sod ( Gastrofran Liq) 18 ml STK-MED ONCE .ROUTE Last administered on 01/18/17 21:13; Start 01/18/17 at 21:07; Stop at 21:08; Status DC Pantoprazole Sodium (Protonix Inj) 40 mg Q24H IV PUSH Last administered on 01/23 23:05; Start 01/18/17 at 23:30 Potassium Chloride/Sodium Chloride 1,000 ml @ 100 mls/hr Q10H IV Last administered on 01/20/17 22:42; Start 01/18/17 at 23:30; Stop 01/21/17 at 08:23 ; Status DC Dextrose (D50w (Vial) Inj) 50 ml UNSCH PRN IV HYPOGLYCEMIA-SEE COMMENTS; Start 01/18/17 at 23:30; Stop 01/22/17 at 11:38; Status DC Glucagon (Glucagon Inj) 1 mg UNSCH PRN OTHER HYPOGLYCEMIA-SEE COMMENTS; Start 01/18/17 at 23:30; Stop 01/22/17 at 11:38; Status DC Sodium Chloride (NS Flush) 2 ml UNSCH PRN IV FLUSH FLUSH AFTER USING IV ACCESS ; Start 01/18/17 at 23:30 Sodium Chloride (NS Flush) 2 ml BID IV FLUSH Last administered on 01/24/17 09: 25; Start 01/19/17 at 09:00 Ondansetron HCl (Zofran Inj) 4 mg Q6H PRN IVP NAUSEA OR VOMITING Last administered on 01/23/17 13:10; Start 01/18/17 at 23:30 Ketorolac Tromethamine (Toradol Inj) 15 mg Q6H PRN IVP Pain 1-5; if unable to take PO; Start 01/18/17 at 23:30; Stop 01/23/17 at 23:29; Status DC Ketorolac Tromethamine (Toradol Inj) 30 mg Q6H PRN IVP Pain 6-10;if unable to take PO; Start 01/18/17 at 23:30; Stop 01/23/17 at 23:29; Status DC Morphine Sulfate (Morphine Inj) 2 mg Q3H PRN IV BREAKTHROUGH PAIN; Start at 23:30 Naloxone HCl (Narcan Inj) 0.4 mg UNSCH PRN IV SEE LABEL COMMENTS; Start at 23:30 Bisacodyl (Dulcolax Supp) 10 mg DAILY PRN RECTAL SEVERE CONSITIPATION Last administered on 01/22/17 20:16; Start 01/18/17 at 23:30 Bisacodyl (Dulcolax Supp) 10 mg ONCE ONCE RECTAL Last administered on 00:07; Start 01/18/17 at 23:30; Stop 01/18/17 at 23:31; Status DC Levofloxacin/ Dextrose 100 ml @ 100 mls/hr Q24H IV Last administered on 23:04; Start 01/19/17 at 02:00 Sodium Chloride 1,000 ml @ 100 mls/hr Q10H IV Last administered on 01/23/17 23:03; Start 01/21/17 at 08:30 Dextrose (D50w (Vial) Inj) 50 ml UNSCH PRN IV HYPOGLYCEMIA-SEE COMMENTS; Start 01/22/17 at 11:45 Glucagon (Glucagon Inj) 1 mg UNSCH PRN OTHER HYPOGLYCEMIA-SEE COMMENTS; Start 01/22/17 at 11:45 Insulin Aspart (NovoLOG SUPPLEMENTAL SCALE) 1 ACHS SLIDING SCALE SQ ; Start at 16:00 Midazolam HCl (Versed Inj) 2 mg STK-MED ONCE .ROUTE ; Start 01/23/17 at 20:12; Stop 01/23/17 at 20:13; Status DC Fentanyl Citrate (fentaNYL INJ) 250 mcg STK-MED ONCE .ROUTE ; Start 01/23/17 at 20:12; Stop 01/23/17 at 20:13; Status DC Dexamethasone Sodium Phosphate (Decadron Inj) 4 mg STK-MED ONCE .ROUTE ; Start 01/23/17 at 20:12; Stop 01/23/17 at 20:13; Status DC Acetaminophen 100 ml @ As Directed STK-MED ONCE IV ; Start 01/23/17 at 20:12; Stop 01/23/17 at 20:13; Status DC Famotidine (Pepcid Inj) 20 mg STK-MED ONCE .ROUTE ; Start 01/23/17 at 20:13; Stop 01/23/17 at 20:14; Status DC Morphine Sulfate (Morphine Inj) 4 mg Q3H PRN IV PUSH PAIN SCALE 5 TO 10; Start 01/23/17 at 21:30 Miscellaneous Information ALL NURSING DEPARTME... UNSCH PRN .XX SEE LABEL COMMENTS; Start 01/23/17 at 21:45; Stop 01/24/17 at 21:44 Bupivacaine HCl (Marcaine Pf 0.25% Inj) 1 ml ONCE ONCE INFIL Last administered on 01/24/17t 00:52; Start 01/24/17 at 00:50; Stop 01/24/17 at 00:52 ; Status DC A/P Assessment and Plan Partial small bowel obstruction likely related to adhesions with extensive abdominal surgeries. -Patient has diagnostic laparoscopy. lysis of adhesion. He was found to have an internal hernia. -Management per surgeon. Right upper quadrant pain -On admission his LFTs were normal. He stated that this is a new type of pain. We will get LFTs and do a ultrasound of the right upper quadrant. Leukocytosis likely secondary to above -He is on Levaquin. Urine cultures negative. hyperkalemia- resolved. Mild hyponatremia. improved. Diabetes mellitus. Monitor fingerstick sugars sliding scale coverage. DVT prophylaxis with SCD and early ambulation. chemical prophylaxis when ok with surgery. Dang Marin MD Jan 24, 2017 11:21
[2017-01-24 12:39] LABS: TOTAL BILIRUBIN ADULT 0.8 MG/DL (0.2-1.0)
[2017-01-24 12:42] LABS: INDIRECT BILIRUBIN 0.7 MG/DL (0.0-0.8)
[2017-01-24] MEDS: MORPHINE SULFATE 4 MG/ML INJ IV PUSH PRN (15:30)
--- NOTE | 2017-01-24 15:34 | RADRPT ---
EXAM DATE/TIME: 01/24/2017 14:59 [facility] COMPARISON: No previous studies available for comparison. EXTERNAL COMPARISON : [facility], Ultrasound Kidney, November 10, 2016CT Abdomen, POD, 03/09/2012. INDICATIONS : Right upper quadrant pain. MEDICAL HISTORY : Hypercholesterolemia. Renal cancer. SURGICAL HISTORY : Tonsillectomy. Appendectomy. Pacemaker. Right inguinal hernia. Right nephrectomy. Polinoidal cyst of spine. Bladder polyp. ENCOUNTER: Initial ACUITY: 1 day PAIN SCORE: 9/10 LOCATION: Right upper quadrant MEASUREMENTS: LIVER: 14.4 cm length COMMON DUCT: 5 mm RIGHT KIDNEY: Surgically removed. FINDINGS: LIVER: Normal echotexture without focal lesion or ductal dilatation. COMMON DUCT: No intraluminal mass or stone visualized. GALLBLADDER: Multiple subcentimeter stones. No gallbladder wall thickening or pericholecystic fluid. Negative sono graphic Huff's sign. PANCREAS: Not well seen. No acute abnormality demonstrated. RIGHT KIDNEY: Previous right nephrectomy. No mass demonstrated CONCLUSION: Cholelithiasis without cholecystitis or evidence of biliary obstruction. César Gomez MD on January 24, 2017 at 15:31 Board Certified Radiologist. This report was verified electronically.
[2017-01-24] MEDS: SODIUM CHLOR 0.9% 1000 ML INJ 1,000 ML IV SCH (16:04)
--- NOTE | 2017-01-24 17:43 | HHI.PR ---
Subjective Subjective Notes feels better, no N/V Objective Vitals/I&O Vital Signs Date Time Temp Pulse Resp B/P (MAP) Pulse Ox O2 Delivery O2 Flow Rate FiO2 01/24/17 16:00 97.8 101 19 126/68 (87) 96 01/23/17 22:15 Nasal Cannula 3 Labs Laboratory Tests Test 01/24/17 04:10 White Blood Count 16.0 Red Blood Count 4.33 Hemoglobin 14.6 Hematocrit 44.6 Mean Corpuscular Volume 103.0 Mean Corpuscular Hemoglobin 33.7 Mean Corpuscular Hemoglobin Concent 32.7 Red Cell Distribution Width 12.9 Platelet Count 132 Mean Platelet Volume 10.9 Neutrophils (%) (Auto) 88.5 Lymphocytes (%) (Auto) 3.2 Monocytes (%) (Auto) 7.7 Eosinophils (%) (Auto) 0.3 Basophils (%) (Auto) 0.3 Neutrophils # (Auto) 14.1 Lymphocytes # (Auto) 0.5 Monocytes # (Auto) 1.2 Eosinophils # (Auto) 0.1 Basophils # (Auto) 0.1 CBC Comment DIFF FINAL Differential Comment Blood Urea Nitrogen 19 Creatinine 0.44 Random Glucose 77 Total Protein 4.9 Calcium Level 7.4 Sodium Level 139 Potassium Level 4.0 Chloride Level 108 Carbon Dioxide Level 20.3 Anion Gap 11 Estimat Glomerular Filtration Rate 188 Protein Corrected Calcium 8.6 Total Bilirubin 0.8 Direct Bilirubin 0.1 Indirect Bilirubin 0.7 Aspartate Amino Transf (AST/SGOT) 41 Alanine Aminotransferase (ALT/SGPT) 22 Alkaline Phosphatase 62 Albumin 2.1 Date/Time Source Procedure Growth Status 01/19/17 00:00 Urine Clean Catch Urine Culture - Final 10-50,000 CFU/ML MIXED GRAM POSITIVE ... Complete Abdomen: Non-distended, Post-op tenderness A/P Assessment and Plan 76yo male s/p diagnostic laparoscopy. lysis of adhesion, single band, stable. DC NG, can have clears, keep herbert 1 more day pain ok Wayne Oropeza MD Jan 24, 2017 17:43
[2017-01-25] VITALS (8 sets, daily range): BP systolic 99–126; BP diastolic 59–72; PULSE 84–103; RESP 16–21; TEMP 96.1–98.8; O2SAT 92–96
[2017-01-25] MEDS: PANTOPRAZOLE SODIUM 40 MG VIAL IV PUSH SCH (00:32)
[2017-01-25] MEDS: LEVOFLOXACIN 500 MG PREMIX INJ 100 ML IV SCH (00:33)
[2017-01-25] MEDS: MORPHINE SULFATE 4 MG/ML INJ IV PUSH PRN (01:59)
[2017-01-25] MEDS: SODIUM CHLOR 0.9% 1000 ML INJ 1,000 ML IV SCH ×2 (02:30→13:24)
[2017-01-25] MEDS: INSULIN ASPART SUPPLEMENTAL SCALE SQ SCH ×4 (04:50→21:00)
[2017-01-25 05:10] LABS: HEMATOCRIT 44.3 % (39.0-51.0); MEAN CELL VOLUME 102.6 FL (80.0-100.0); MEAN CORPUSCULAR HEMOGLOBIN 33.6 PG (27.0-34.0); MEAN CORPUSCULAR HGB CONC 32.8 % (32.0-36.0); PLATELET COUNT 130 TH/MM3 (150-450); RED BLOOD COUNT 4.32 MIL/MM3 (4.50-5.90); RED CELL DISTRIBUTION WIDTH 13.1 % (11.6-17.2); REVIEW FLAG FINAL; WHITE BLOOD COUNT 15.4 TH/MM3 (4.0-11.0)
[2017-01-25 05:18] LABS: BICARBONATE 22.2 MEQ/L (21.0-32.0); POTASSIUM 3.4 MEQ/L (3.5-5.1)
[2017-01-25] MEDS: SODIUM CHLORIDE 0.9% FLUSH 10 ML FLUSH IV FLUSH SCH ×2 (08:36→21:00)
--- NOTE | 2017-01-25 09:20 | HHI.PR ---
Subjective Subjective Notes feels fine, some cramping. no BM or flatus yet, wants herbert out Objective Vitals/I&O Vital Signs Date Time Temp Pulse Resp B/P (MAP) Pulse Ox O2 Delivery O2 Flow Rate FiO2 01/25/17 04:00 96.1 93 17 104/63 (77) 95 01/23/17 22:15 Nasal Cannula 3 Labs Laboratory Tests Test 01/25/17 04:18 White Blood Count 15.4 Red Blood Count 4.32 Hemoglobin 14.5 Hematocrit 44.3 Mean Corpuscular Volume 102.6 Mean Corpuscular Hemoglobin 33.6 Mean Corpuscular Hemoglobin Concent 32.8 Red Cell Distribution Width 13.1 Platelet Count 130 Mean Platelet Volume 10.5 Blood Urea Nitrogen 12 Creatinine 0.44 Random Glucose 77 Calcium Level 7.7 Sodium Level 140 Potassium Level 3.4 Chloride Level 108 Carbon Dioxide Level 22.2 Anion Gap 10 Estimat Glomerular Filtration Rate 188 Date/Time Source Procedure Growth Status 01/19/17 00:00 Urine Clean Catch Urine Culture - Final 10-50,000 CFU/ML MIXED GRAM POSITIVE ... Complete Abdomen: Non-distended, Post-op tenderness, BS normal A/P Assessment and Plan POD2 KATHLEEN for PSBO continue to observe, will leave on sips liquids for now until bowels working well and patient hungry Mark Mendez MD Jan 25, 2017 09:20
[2017-01-25] MEDS ORDERED: ACETAMINOPHEN/HYDROcodone 325 MG/5 MG TAB PO PRN (09:30)
--- NOTE | 2017-01-25 11:05 | HHI.PR ---
Subjective Remarks Follow-up for small bowel obstruction Patient stated that he has a little more pain in his lower abdomen. He stated that he is not hungry. Denies any nausea or vomiting. Patient stated that he is walking with his walker. Otherwise no other complaints. His daughters at the bedside. Objective Vitals Vital Signs Date Time Temp Pulse Resp B/P (MAP) Pulse Ox O2 Delivery O2 Flow Rate FiO2 01/25/17 08:00 97.2 86 20 123/59 (80) 92 01/25/17 04:00 96.1 93 17 104/63 (77) 95 01/25/17 00:00 97.4 84 17 114/63 (80) 94 01/24/17 20:15 105 01/24/17 20:00 99.8 83 17 117/57 (77) 93 01/24/17 16:00 97.8 101 19 126/68 (87) 96 01/24/17 12:00 98.3 98 19 94/62 (73) 95 I/O 01/24/17 01/24/17 01/24/17 01/25/17 01/25/17 01/25/17 07:00 15:00 23:00 07:00 15:00 23:00 Intake Total 1809 ml 216 ml 2868 ml 1084 ml Output Total 350 ml 1000 ml 900 ml 200 ml Balance 1459 ml 216 ml 1868 ml 184 ml -200 ml Intake Oral 0 ml 216 ml 388 ml 240 ml IV Total 1809 ml 2480 ml 844 ml Output Urine Total 350 ml 1000 ml 900 ml 200 ml # Bowel Movements 0 Result Diagram: 01/25/17 0418 01/25/17 0418 Imaging Last Impressions Gall Bladder Ultrasound 01/24/17 0000 Signed Impressions: Service Date/Time: Tuesday, January 24, 2017 14:59 - CONCLUSION: Cholelithiasis without cholecystitis or evidence of biliary obstruction. César Gomez MD Abdomen/Pelvis CT 01/23/17 0000 Signed Impressions: Service Date/Time: Monday, January 23, 2017 15:16 - CONCLUSION: Incomplete small bowel obstruction with contrast material now seen within the more distal colon. There is progressive mild dilation of the small bowel with transition identified within the right lower quadrant pelvis. No visible mass in this region suggestive of a focal area of adhesion.. Carmen Blanco MD Abdomen X-Ray 01/21/17 1600 Signed Impressions: Service Date/Time: December 15:41 - CONCLUSION: 1. Diffuse dilation of the small bowel however, there is some oral contrast present within the ascending colon. The exam is unchanged since earlier film of 01/20/17. Pete Caputo MD Small Bowel X-Ray 01/20/17 0000 Signed Impressions: Service Date/Time: Friday, January 20, 2017 15:01 - CONCLUSION: 1. Diffuse dilation of the small bowel. There was passage of contrast through the small bowel and into the colon at 16 hours. Pete Caputo MD Objective Remarks GENERAL: in NAD CARDIOVASCULAR: Regular rate and rhythm without murmurs, gallops, or rubs. RESPIRATORY: Breath sounds equal bilaterally. No accessory muscle use. GASTROINTESTINAL: Abdomen soft, positive tenderness around the umbilical area. Negative for any peritoneal signs. Surgical wounds are dry clean and intact. Medications and IVs Current Medications Ondansetron HCl (Zofran Inj) 4 mg ONCE ONCE IVP Last administered on 21:12; Start 01/18/17 at 20:45; Stop 01/18/17 at 20:46; Status DC Sodium Chloride 1,000 ml @ 1,000 mls/hr Q1H IV Last administered on 01/18/17 21:13; Start 01/18/17 at 20:34; Stop 01/18/17 at 21:33; Status DC Sodium Chloride (NS Flush) 2 ml UNSCH PRN IV FLUSH FLUSH AFTER USING IV ACCESS ; Start 01/18/17 at 20:45 Diatrizoate Meglum/ Diatrizoate Sod ( Gastroview Liq) 18 ml STK-MED ONCE .ROUTE Last administered on 01/18/17 21:13; Start 01/18/17 at 21:07; Stop at 21:08; Status DC Pantoprazole Sodium (Protonix Inj) 40 mg Q24H IV PUSH Last administered on 01/25 00:32; Start 01/18/17 at 23:30 Potassium Chloride/Sodium Chloride 1,000 ml @ 100 mls/hr Q10H IV Last administered on 01/20/17 22:42; Start 01/18/17 at 23:30; Stop 01/21/17 at 08:23 ; Status DC Dextrose (D50w (Vial) Inj) 50 ml UNSCH PRN IV HYPOGLYCEMIA-SEE COMMENTS; Start 01/18/17 at 23:30; Stop 01/22/17 at 11:38; Status DC Glucagon (Glucagon Inj) 1 mg UNSCH PRN OTHER HYPOGLYCEMIA-SEE COMMENTS; Start 01/18/17 at 23:30; Stop 01/22/17 at 11:38; Status DC Sodium Chloride (NS Flush) 2 ml UNSCH PRN IV FLUSH FLUSH AFTER USING IV ACCESS ; Start 01/18/17 at 23:30 Sodium Chloride (NS Flush) 2 ml BID IV FLUSH Last administered on 01/25/17 08: 36; Start 01/19/17 at 09:00 Ondansetron HCl (Zofran Inj) 4 mg Q6H PRN IVP NAUSEA OR VOMITING Last administered on 01/23/17 13:10; Start 01/18/17 at 23:30 Ketorolac Tromethamine (Toradol Inj) 15 mg Q6H PRN IVP Pain 1-5; if unable to take PO; Start 01/18/17 at 23:30; Stop 01/23/17 at 23:29; Status DC Ketorolac Tromethamine (Toradol Inj) 30 mg Q6H PRN IVP Pain 6-10;if unable to take PO; Start 01/18/17 at 23:30; Stop 01/23/17 at 23:29; Status DC Morphine Sulfate (Morphine Inj) 2 mg Q3H PRN IV BREAKTHROUGH PAIN; Start at 23:30 Naloxone HCl (Narcan Inj) 0.4 mg UNSCH PRN IV SEE LABEL COMMENTS; Start at 23:30 Bisacodyl (Dulcolax Supp) 10 mg DAILY PRN RECTAL SEVERE CONSITIPATION Last administered on 01/22/17 20:16; Start 01/18/17 at 23:30 Bisacodyl (Dulcolax Supp) 10 mg ONCE ONCE RECTAL Last administered on 00:07; Start 01/18/17 at 23:30; Stop 01/18/17 at 23:31; Status DC Levofloxacin/ Dextrose 100 ml @ 100 mls/hr Q24H IV Last administered on 00:33; Start 01/19/17 at 02:00 Sodium Chloride 1,000 ml @ 75 mls/hr [id number] IV Last administered on 02:30; Start 01/21/17 at 08:30 Dextrose (D50w (Vial) Inj) 50 ml UNSCH PRN IV HYPOGLYCEMIA-SEE COMMENTS; Start 01/22/17 at 11:45 Glucagon (Glucagon Inj) 1 mg UNSCH PRN OTHER HYPOGLYCEMIA-SEE COMMENTS; Start 01/22/17 at 11:45 Insulin Aspart (NovoLOG SUPPLEMENTAL SCALE) 1 ACHS SLIDING SCALE SQ ; Start at 16:00 Midazolam HCl (Versed Inj) 2 mg STK-MED ONCE .ROUTE ; Start 01/23/17 at 20:12; Stop 01/23/17 at 20:13; Status DC Fentanyl Citrate (fentaNYL INJ) 250 mcg STK-MED ONCE .ROUTE ; Start 01/23/17 at 20:12; Stop 01/23/17 at 20:13; Status DC Dexamethasone Sodium Phosphate (Decadron Inj) 4 mg STK-MED ONCE .ROUTE ; Start 01/23/17 at 20:12; Stop 01/23/17 at 20:13; Status DC Acetaminophen 100 ml @ As Directed STK-MED ONCE IV ; Start 01/23/17 at 20:12; Stop 01/23/17 at 20:13; Status DC Famotidine (Pepcid Inj) 20 mg STK-MED ONCE .ROUTE ; Start 01/23/17 at 20:13; Stop 01/23/17 at 20:14; Status DC Morphine Sulfate (Morphine Inj) 4 mg Q3H PRN IV PUSH PAIN SCALE 5 TO 10 Last administered on 01/25/17 01:59; Start 01/23/17 at 21:30 Miscellaneous Information ALL NURSING DEPARTME... UNSCH PRN .XX SEE LABEL COMMENTS; Start 01/23/17 at 21:45; Stop 01/24/17 at 21:44; Status DC Bupivacaine HCl (Marcaine Pf 0.25% Inj) 1 ml ONCE ONCE INFIL Last administered on 01/24/17 00:52; Start 01/24/17 at 00:50; Stop 01/24/17 at 00:52 ; Status DC Acetaminophen/ Hydrocodone Bitart ([place] 5-325 Mg) 2 tab Q4H PRN PO PAIN SCALE 1 TO 5; Start 01/25/17 at 09:30; Status UNV A/P Assessment and Plan Partial small bowel obstruction likely related to adhesions with extensive abdominal surgeries. -Patient has diagnostic laparoscopy. lysis of adhesion. He was found to have an internal hernia. -Management per surgeon. -Per surgeon continue to observe, will leave on sips liquids for now until bowels working well and patient hungr Right upper quadrant pain -On admission his LFTs were normal. Ultrasound negative for any inflammation or infection. Shows gallstones. At the moment he is asymptomatic. Leukocytosis likely secondary to above -He is on Levaquin. Urine cultures negative. hyperkalemia- resolved. Mild hyponatremia. improved. Diabetes mellitus. Monitor fingerstick sugars sliding scale coverage. DVT prophylaxis with SCD and early ambulation. chemical prophylaxis when ok with surgery. Discharge Planning Awaiting bowel function and for patient to tolerate oral intake before discharge. Dang Marin MD Jan 25, 2017 11:05
[2017-01-26] MEDS: PANTOPRAZOLE SODIUM 40 MG VIAL IV PUSH SCH (00:21)
[2017-01-26] MEDS: LEVOFLOXACIN 500 MG PREMIX INJ 100 ML IV SCH (02:23)
[2017-01-26] MEDS: SODIUM CHLOR 0.9% 1000 ML INJ 1,000 ML IV SCH (02:54)
[2017-01-26 04:00] VITALS: BP 106/65; PULSE 52; RESP 18; TEMP 97.2; O2SAT 96
[2017-01-26] MEDS: INSULIN ASPART SUPPLEMENTAL SCALE SQ SCH ×4 (06:21→20:13)
[2017-01-26 07:17] LABS: BICARBONATE 21.3 MEQ/L (21.0-32.0)
[2017-01-26 07:33] LABS: MEAN CELL VOLUME 101.5 FL (80.0-100.0); MEAN CORPUSCULAR HEMOGLOBIN 33.4 PG (27.0-34.0); MEAN CORPUSCULAR HGB CONC 32.9 % (32.0-36.0); PLATELET COUNT 122 TH/MM3 (150-450); RED BLOOD COUNT 3.94 MIL/MM3 (4.50-5.90); RED CELL DISTRIBUTION WIDTH 12.9 % (11.6-17.2); REVIEW FLAG FINAL; WHITE BLOOD COUNT 13.2 TH/MM3 (4.0-11.0)
[2017-01-26 07:52] LABS: POTASSIUM 3.6 MEQ/L (3.5-5.1)
[2017-01-26 08:00] VITALS: BP 113/79; PULSE 60; RESP 18; TEMP 97.2; O2SAT 100
[2017-01-26] MEDS: SODIUM CHLORIDE 0.9% FLUSH 10 ML FLUSH IV FLUSH SCH ×2 (08:47→20:13)
--- NOTE | 2017-01-26 09:14 | MP ---
cc: PARVEEN LEÓN M.D. DATE OF SURGERY 01/23/2017 PREOPERATIVE DIAGNOSIS High-grade partial small bowel obstruction. POSTOPERATIVE DIAGNOSIS 1. High-grade partial small bowel obstruction. 2. Single adhesion right lower quadrant causing internal hernia postoperative. PROCEDURE PERFORMED 1. Diagnostic laparoscopy 2. Laparoscopic lysis of adhesion. SURGEON Parveen León MD ANESTHESIA General endotracheal COMPLICATIONS None INDICATION FOR THE PROCEDURE Mr. Huertas is a very pleasant 76-year-old gentleman who was admitted on 01/18/2017 with nausea, vomiting, abdominal pain. The patient was seen and evaluated by Dr. Viet Robertson. The patient was diagnosed with a partial small bowel obstruction based on imaging and physical exam. He was admitted and managed medically. The patient had an NG tube placed. It returned approximately a liter. Over the next two days, his NG output dropped off significantly and his abdominal pain completely resolved. The patient had a small bowel follow-through which showed faint contrast in the ascending and transverse colon. As the patient's imaging showed no progression of contrast and his NG output went down significantly, we attempted to put him back on back on a clear liquid diet. NG tube was discontinued yesterday and he was started on a clear liquid diet. The patient did well initially, but today around noon he developed recurrent nausea, vomiting with abdominal cramping. Repeat CT was ordered which confirmed a high-grade partial small bowel obstruction. Of note, the patient did have contrast in his colon from previous imaging, however, the small bowel may have persistently dilated down into the right lower quadrant where some decompressed small bowel was noted distal to this. This was felt to be the site of obstruction. The patient and his family were counseled. I recommended proceeding to the operating room as he had failed medical management. They were agreeable. INTRAOPERATIVE FINDINGS The patient had a single omental adhesion in the right lower quadrant to the lateral pelvic sidewall causing a small internal hernia. The small bowel easily reduced from the hernia and was completely viable. Once the small bowel was reduced, it was run distally and found to be completely decompressed and there were no other adhesions noted. The single omental adhesion was taken down with electrocautery Bovie and freed up completely. Bleeding point on the adhesions on the lateral pelvic sidewall was controlled with a 2-0 PDS Endoloop. Once we did this, the entire small bowel was easily visualized and quite loose with no adhesions whatsoever. It was therefore returned to its anatomic position. The omentum was placed over the small bowel without any difficulty. The abdomen was then decompressed and all trocars were removed. DETAILS The patient was identified, brought to the operating room, placed supine on the operating table. After adequate general endotracheal anesthesia had been achieved, the abdomen was prepped and draped in standard surgical fashion. The supraumbilical space was anesthetized with quarter percent Marcaine. A supraumbilical incision was made. Dissection was carried down to the subcutaneous tissue at the midline fascia. The midline fascia was then incised sharply. A finger was then placed in the peritoneal cavity without difficulty. Blunt balloon trocar was inserted and the abdomen was insufflated to 15 mmHg using CO2 gas. Next, two 5 mm trocars were placed in the lower midline under direct vision after anesthetizing the skin and subcutaneous tissue with quarter percent Marcaine. Of note, the patient had minimal lower midline adhesions from his previous nephrectomy. Attention was directed right lower quadrant where dilated bowel was seen traversing and decompressed bowel was seen coming out. The decompressed bowel was followed back proximally where an obvious internal hernia occurred in the right lower quadrant down in the pelvic sidewall where an omental adhesion had made a band across it. The small bowel easily reduced out of the hernia and was not compromised in any way. Once we did this, the small bowel was run several centimeters proximally which showed a dilated small bowel. We then ran the entire distal bowel completely and it was completely decompressed and went down to the ileocecal valve with no other adhesions. Once we did this, the omental adhesion was taken down with electrocautery Bovie. Bleeding was controlled with electrocautery Bovie. There was a small venous bleeder on the lateral pelvic sidewall adjacent to the iliac vessels. I elected not to cauterize this area and simply controlled this with a 2-0 PDS Endoloop. The patient had a previous right nephrectomy of note. Once we did this, the abdominal cavity was evacuated out. There was minimal ascites and minimal blood present. The small bowel was reinspected and found to be actively peristalsing of normal size and caliber distally and the transition point had completely resolved. Omentum was then brought down placed over the small bowel. The abdomen was then carefully desufflated. The midline fascia was repaired with 0 Vicryl in [id number] fashion. Skin was closed with 4-0 Vicryl. The patient tolerated the procedure well, was awakened and brought to recovery in stable condition. Parveen MD GÓMEZ León /9:25 PM /8:58 AM
[2017-01-26 12:00] VITALS: BP 98/65; PULSE 96; RESP 16; TEMP 96.9; O2SAT 96
--- NOTE | 2017-01-26 12:02 | HHI.PR ---
Subjective Remarks Follow-up for small bowel obstruction Patient stated that he is doing well. He stated that he is passing flatus and stools. Deny nausea/vomiting. He tolerated his clear liquid diet. Patient remains afebrile. He stated that he is ambulating. He stated that pain is mild now. Patient's and daughter at the bedside. Objective Vitals Vital Signs Date Time Temp Pulse Resp B/P (MAP) Pulse Ox O2 Delivery O2 Flow Rate FiO2 01/26/17 08:00 97.2 60 18 113/79 (90) 100 01/26/17 04:00 97.2 52 18 106/65 (79) 96 01/25/17 23:55 98.8 97 20 126/68 (87) 94 01/25/17 20:30 96 01/25/17 20:00 96.2 103 21 120/72 (88) 95 01/25/17 16:00 97.0 94 16 124/70 (88) 94 I/O 01/25/17 01/25/17 01/25/17 01/26/17 01/26/17 01/26/17 07:00 15:00 23:00 07:00 15:00 23:00 Intake Total 1084 ml 1682 ml 92 ml Output Total 900 ml 200 ml 200 ml 450 ml 100 ml Balance 184 ml -200 ml 1482 ml -450 ml -8 ml Intake Oral 240 ml 480 ml 92 ml IV Total 844 ml 1202 ml Output Urine Total 900 ml 200 ml 200 ml 450 ml 100 ml Bladder Scan Volume Amount 26 ml 26 ml # Bowel Movements 0 Result Diagram: 01/26/17 0433 01/26/17 0433 Objective Remarks GENERAL: in NAD CARDIOVASCULAR: Regular rate and rhythm without murmurs, gallops, or rubs. RESPIRATORY: Breath sounds equal bilaterally. No accessory muscle use. GASTROINTESTINAL: Abdomen soft, mild positive tenderness around the umbilical area that has improved.. Negative for any peritoneal signs. Surgical wounds are dry clean and intact. Medications and IVs Current Medications Ondansetron HCl (Zofran Inj) 4 mg ONCE ONCE IVP Last administered on 21:12; Start 01/18/17 at 20:45; Stop 01/18/17 at 20:46; Status DC Sodium Chloride 1,000 ml @ 1,000 mls/hr Q1H IV Last administered on 01/18/17 21:13; Start 01/18/17 at 20:34; Stop 01/18/17 at 21:33; Status DC Sodium Chloride (NS Flush) 2 ml UNSCH PRN IV FLUSH FLUSH AFTER USING IV ACCESS ; Start 01/18/17 at 20:45 Diatrizoate Meglum/ Diatrizoate Sod (Md [place] Streeter) 18 ml STK-MED ONCE .ROUTE Last administered on 01/18/17 21:13; Start 01/18/17 at 21:07; Stop at 21:08; Status DC Pantoprazole Sodium (Protonix Inj) 40 mg Q24H IV PUSH Last administered on 01/26 00:21; Start 01/18/17 at 23:30 Potassium Chloride/Sodium Chloride 1,000 ml @ 100 mls/hr Q10H IV Last administered on 01/20/17 22:42; Start 01/18/17 at 23:30; Stop 01/21/17 at 08:23 ; Status DC Dextrose (D50w (Vial) Inj) 50 ml UNSCH PRN IV HYPOGLYCEMIA-SEE COMMENTS; Start 01/18/17 at 23:30; Stop 01/22/17 at 11:38; Status DC Glucagon (Glucagon Inj) 1 mg UNSCH PRN OTHER HYPOGLYCEMIA-SEE COMMENTS; Start 01/18/17 at 23:30; Stop 01/22/17 at 11:38; Status DC Sodium Chloride (NS Flush) 2 ml UNSCH PRN IV FLUSH FLUSH AFTER USING IV ACCESS ; Start 01/18/17 at 23:30 Sodium Chloride (NS Flush) 2 ml BID IV FLUSH Last administered on 01/25/17 08: 36; Start 01/19/17 at 09:00 Ondansetron HCl (Zofran Inj) 4 mg Q6H PRN IVP NAUSEA OR VOMITING Last administered on 01/23/17 13:10; Start 01/18/17 at 23:30 Ketorolac Tromethamine (Toradol Inj) 15 mg Q6H PRN IVP Pain 1-5; if unable to take PO; Start 01/18/17 at 23:30; Stop 01/23/17 at 23:29; Status DC Ketorolac Tromethamine (Toradol Inj) 30 mg Q6H PRN IVP Pain 6-10;if unable to take PO; Start 01/18/17 at 23:30; Stop 01/23/17 at 23:29; Status DC Morphine Sulfate (Morphine Inj) 2 mg Q3H PRN IV BREAKTHROUGH PAIN; Start at 23:30 Naloxone HCl (Narcan Inj) 0.4 mg UNSCH PRN IV SEE LABEL COMMENTS; Start at 23:30 Bisacodyl (Dulcolax Supp) 10 mg DAILY PRN RECTAL SEVERE CONSITIPATION Last administered on 01/22/17 20:16; Start 01/18/17 at 23:30 Bisacodyl (Dulcolax Supp) 10 mg ONCE ONCE RECTAL Last administered on 00:07; Start 01/18/17 at 23:30; Stop 01/18/17 at 23:31; Status DC Levofloxacin/ Dextrose 100 ml @ 100 mls/hr Q24H IV Last administered on 02:23; Start 01/19/17 at 02:00 Sodium Chloride 1,000 ml @ 75 mls/hr [id number] IV Last administered on 02:54; Start 01/21/17 at 08:30 Dextrose (D50w (Vial) Inj) 50 ml UNSCH PRN IV HYPOGLYCEMIA-SEE COMMENTS; Start 01/22/17 at 11:45 Glucagon (Glucagon Inj) 1 mg UNSCH PRN OTHER HYPOGLYCEMIA-SEE COMMENTS; Start 01/22/17 at 11:45 Insulin Aspart (NovoLOG SUPPLEMENTAL SCALE) 1 ACHS SLIDING SCALE SQ ; Start at 16:00 Midazolam HCl (Versed Inj) 2 mg STK-MED ONCE .ROUTE ; Start 01/23/17 at 20:12; Stop 01/23/17 at 20:13; Status DC Fentanyl Citrate (fentaNYL INJ) 250 mcg STK-MED ONCE .ROUTE ; Start 01/23/17 at 20:12; Stop 01/23/17 at 20:13; Status DC Dexamethasone Sodium Phosphate (Decadron Inj) 4 mg STK-MED ONCE .ROUTE ; Start 01/23/17 at 20:12; Stop 01/23/17 at 20:13; Status DC Acetaminophen 100 ml @ As Directed STK-MED ONCE IV ; Start 01/23/17 at 20:12; Stop 01/23/17 at 20:13; Status DC Famotidine (Pepcid Inj) 20 mg STK-MED ONCE .ROUTE ; Start 01/23/17 at 20:13; Stop 01/23/17 at 20:14; Status DC Morphine Sulfate (Morphine Inj) 4 mg Q3H PRN IV PUSH PAIN SCALE 5 TO 10 Last administered on 01/25/17 01:59; Start 01/23/17 at 21:30 Miscellaneous Information ALL NURSING DEPARTME... UNSCH PRN .XX SEE LABEL COMMENTS; Start 01/23/17 at 21:45; Stop 01/24/17 at 21:44; Status DC Bupivacaine HCl (Marcaine Pf 0.25% Inj) 1 ml ONCE ONCE INFIL Last administered on 01/24/17 00:52; Start 01/24/17 at 00:50; Stop 01/24/17 at 00:52 ; Status DC Acetaminophen/ Hydrocodone Bitart ([place] 5-325 Mg) 2 tab Q4H PRN PO PAIN SCALE 1 TO 5; Start 01/25/17 at 09:30 A/P Assessment and Plan Partial small bowel obstruction likely related to adhesions with extensive abdominal surgeries. -Patient has diagnostic laparoscopy. lysis of adhesion. He was found to have an internal hernia. -Management per surgeon. -Patient tolerating his clear liquid diet may consider advancements per surgeon. Right upper quadrant pain, resolved -On admission his LFTs were normal. Ultrasound negative for any inflammation or infection. Shows gallstones. At the moment he is asymptomatic. Leukocytosis likely secondary to above -He is on Levaquin. Urine cultures negative. hyperkalemia- resolved. Mild hyponatremia. improved. Diabetes mellitus. Monitor fingerstick sugars sliding scale coverage. DVT prophylaxis with SCD and early ambulation. chemical prophylaxis when ok with surgery. Discharge Planning Once patient able to tolerate regular diet can be discharged home. Dang Marin MD Jan 26, 2017 12:02
--- NOTE | 2017-01-26 13:11 | HHI.PR ---
Subjective Subjective Notes feels much better. tolerating diet. multiple BMs and flatus, no N/V Objective Vitals/I&O Vital Signs Date Time Temp Pulse Resp B/P (MAP) Pulse Ox O2 Delivery O2 Flow Rate FiO2 01/26/17 12:00 96.9 96 16 98/65 (76) 96 01/23/17 22:15 Nasal Cannula 3 Labs Laboratory Tests Test 01/26/17 04:33 White Blood Count 13.2 Red Blood Count 3.94 Hemoglobin 13.2 Hematocrit 40.0 Mean Corpuscular Volume 101.5 Mean Corpuscular Hemoglobin 33.4 Mean Corpuscular Hemoglobin Concent 32.9 Red Cell Distribution Width 12.9 Platelet Count 122 Mean Platelet Volume 11.5 Blood Urea Nitrogen 13 Creatinine 0.41 Random Glucose 66 Calcium Level 7.8 Sodium Level 141 Potassium Level 3.6 Chloride Level 108 Carbon Dioxide Level 21.3 Anion Gap 12 Estimat Glomerular Filtration Rate 204 Date/Time Source Procedure Growth Status 01/19/17 00:00 Urine Clean Catch Urine Culture - Final 10-50,000 CFU/ML MIXED GRAM POSITIVE ... Complete Abdomen: Non-distended, Non-tender, Post-op tenderness, BS normal A/P Assessment and Plan POD3 KATHLEEN for PSBO advance to regular diet home in am if tolerates FU 1 week in office Mark Gamble MD Jan 26, 2017 13:11
[2017-01-26 16:00] VITALS: BP 140/85; PULSE 74; RESP 18; TEMP 97.5; O2SAT 95
[2017-01-26 20:00] VITALS: BP 122/63; PULSE 104; PULSE 98; RESP 20; TEMP 97.4; O2SAT 96
[2017-01-27] MEDS: PANTOPRAZOLE SODIUM 40 MG VIAL IV PUSH SCH (00:18)
[2017-01-27 04:00] VITALS: BP 127/58; PULSE 101; RESP 20; TEMP 97.8; O2SAT 95
[2017-01-27] MEDS: INSULIN ASPART SUPPLEMENTAL SCALE SQ SCH (05:54)
[2017-01-27 08:00] VITALS: BP 109/63; PULSE 77; RESP 19; TEMP 98.5; O2SAT 96
[2017-01-27] MEDS: SODIUM CHLORIDE 0.9% FLUSH 10 ML FLUSH IV FLUSH SCH (08:30)
[2017-01-27] MEDS ORDERED: LEVOFLOXACIN 500 MG TAB PO SCH (09:00)
--- NOTE | 2017-01-27 09:28 | HHI.PR ---
Subjective Subjective Notes feels good,tolerating po, bowels working well, wants to go home Objective Vitals/I&O Vital Signs Date Time Temp Pulse Resp B/P (MAP) Pulse Ox O2 Delivery O2 Flow Rate FiO2 01/27/17 08:00 98.5 77 19 109/63 (78) 96 01/23/17 22:15 Nasal Cannula 3 Labs Date/Time Source Procedure Growth Status 01/19/17 00:00 Urine Clean Catch Urine Culture - Final 10-50,000 CFU/ML MIXED GRAM POSITIVE ... Complete Abdomen: Non-distended, Non-tender, BS normal A/P Assessment and Plan POD4 KATHLEEN for PSBO advance to regular diet ok to dc home today FU 1 week in office [phone] Mark Gamble MD Jan 27, 2017 09:28
[2017-01-27] MEDS ORDERED: HYDR-3516 PO (09:49)
[2017-01-27] MEDS ORDERED: LEVA500T20 PO (09:49)
--- NOTE | 2017-01-27 09:49 | HHI.DCPOC ---
Discharge Care Plan Diagnosis: (1) Small bowel obstruction Goals to Promote Your Health * To prevent worsening of your condition and complications * To maintain your health at the optimal level Directions to Meet Your Goals Take your medications as prescribed Follow your dietary instruction Follow activity as directed Keep your appointments as scheduled Take your immunizations and boosters as scheduled If your symptoms worsen call your PCP, if no PCP go to Urgent Care Center or Emergency Room Smoking is Dangerous to Your Health. Avoid second hand smoke Call the 24-hour hour crisis hotline for domestic abuse at Dang Marin MD Jan 27, 2017 09:49
--- NOTE | 2017-01-27 09:52 | HHI.DS ---
Discharge Summary Admission Date Jan 18, 2017 at 23:45 Discharge Date: Jan 28, 2017 Admitting Diagnosis Small bowel obstruction (1) Small bowel obstruction ICD Code: K56.69 - Other intestinal obstruction Diagnosis: Principal (2) Hypertension ICD Code: I10 - Essential (primary) hypertension Diagnosis: Secondary (3) Physical deconditioning ICD Code: R53.81 - Other malaise Diagnosis: Secondary Procedures See hospital course. Brief History - From Admission This is a 76-year-old male with a history of renal cancer status post surgery, A. fib status post pacemaker placement, intolerant to anticoagulation with bleeding, hyperlipidemia, diabetes mellitus, GERD, hypertension and sleep apnea not on C Pap. He presents to the emergency department because of nausea, vomiting and abdominal pain for the past 36 hours. States he has not been feeling well. He has intractable nausea and vomiting unable to tolerate by mouth. He also has constant sharp moderate lower abdominal pain associated with abdominal distention. States he has not had any bowel movement for almost 2 days. He passed gas once prior to arrival. CT of the abdomen pelvis shows partial bowel obstruction. He has had extensive abdominal surgery. All other systems reviewed and negative CBC/BMP: 01/26/17 0433 01/26/17 0433 Significant Findings Laboratory Tests Test 01/25/17 04:18 01/26/17 04:33 White Blood Count 15.4 TH/MM3 (4.0-11.0) 13.2 TH/MM3 (4.0-11.0) Red Blood Count 4.32 MIL/MM3 (4.50-5.90) 3.94 MIL/MM3 (4.50-5.90) Mean Corpuscular Volume 102.6 FL (80.0-100.0) 101.5 FL (80.0-100.0) Platelet Count 130 TH/MM3 (150-450) 122 TH/MM3 (150-450) Creatinine 0.44 MG/DL (0.60-1.30) 0.41 MG/DL (0.60-1.30) Calcium Level 7.7 MG/DL (8.5-10.1) 7.8 MG/DL (8.5-10.1) Potassium Level 3.4 MEQ/L (3.5-5.1) Chloride Level 108 MEQ/L (98-107) 108 MEQ/L (98-107) Mean Platelet Volume 11.5 FL (7.0-11.0) Random Glucose 66 MG/DL (74-106) Imaging Last Impressions Gall Bladder Ultrasound 01/24/17 0000 Signed Impressions: Service Date/Time: Tuesday, January 24, 2017 14:59 - CONCLUSION: Cholelithiasis without cholecystitis or evidence of biliary obstruction. César Gomez MD Abdomen/Pelvis CT 01/23/17 0000 Signed Impressions: Service Date/Time: Monday, January 23, 2017 15:16 - CONCLUSION: Incomplete small bowel obstruction with contrast material now seen within the more distal colon. There is progressive mild dilation of the small bowel with transition identified within the right lower quadrant pelvis. No visible mass in this region suggestive of a focal area of adhesion.. Carmen Blanco MD Abdomen X-Ray 01/21/17 1600 Signed Impressions: Service Date/Time: December 15:41 - CONCLUSION: 1. Diffuse dilation of the small bowel however, there is some oral contrast present within the ascending colon. The exam is unchanged since earlier film of 01/20/17. Pete Caputo MD Small Bowel X-Ray 01/20/17 0000 Signed Impressions: Service Date/Time: Friday, January 20, 2017 15:01 - CONCLUSION: 1. Diffuse dilation of the small bowel. There was passage of contrast through the small bowel and into the colon at 16 hours. Pete Caputo MD PE at Discharge GENERAL: in NAD CARDIOVASCULAR: Regular rate and rhythm without murmurs, gallops, or rubs. RESPIRATORY: Breath sounds equal bilaterally. No accessory muscle use. GASTROINTESTINAL: Abdomen soft, mild positive tenderness around the umbilical area that has improved.. Negative for any peritoneal signs. Surgical wounds are dry clean and intact. Pt update on day of discharge Follow-up for small bowel obstruction Patient tolerating regular diet. He remains afebrile. His complaints. Denied any pain. Patient is having regular bowel movements. Dealt with his nurse, case management, physical therapist. Recommends home with home health PT. Hospital Course Partial small bowel obstruction likely related to adhesions with extensive abdominal surgeries. -NG tube was placed and patient put on IV fluids and IV antibiotics. Surgeon was consulted. -Patient has diagnostic laparoscopy. lysis of adhesion. He was found to have an internal hernia. -Patient did well with surgery and upon discharge he tolerated his regular diet. Right upper quadrant pain, resolved -On admission his LFTs were normal. Ultrasound negative for any inflammation or infection. Shows gallstones. At the moment he is asymptomatic. Leukocytosis likely secondary to above -Most likely secondary to small bowel obstruction. He was empirically treated with IV Levaquin and switch over to oral Levaquin. Cultures were negative. hyperkalemia- resolved. Mild hyponatremia. improved. Diabetes mellitus. Monitor fingerstick sugars sliding scale coverage. Hypertension/BPH -Upon discharge metoprolol was held secondary to low blood pressure. Most likely affected by the small bowel instruction and change in diet. Patient told to follow his primary care physician in regards to restarting metoprolol if needed. Pt Condition on Discharge: Good Discharge Disposition: Disch w/ Home Health Serv Discharge Time: > 30 minutes Discharge Instructions DIET: Follow Instructions for: Heart Healthy Diet, Diabetic Diet Activities you can perform: See Additionl Instruction Other Activity Instructions: No lifting greated than 5 lbs Follow up Referrals: PCP Follow-up - 1 Week Surgical - 1 Week with Mark Anders MD New Medications: Hydrocodone-Acetaminophen (Hydrocodone-Acetaminophen) 5-325 mg Tab 2 TAB PO Q4H PRN for moderate to severe pain, #15 TAB 0 Refills Levofloxacin (Levaquin) 500 Mg Tablet 500 MG PO DAILY for infection, #3 TAB 0 Refills Continued Medications: Acetaminophen (Tylenol Extra Strength) 500 Mg Tablet PO HS Alendronate (Alendronate) 70 Mg Tab 70 MG PO Q7D for Osteporosis Treatment, #4 TAB 0 Refills Ascorbic Acid (Vitamin C) 250 Mg Tab 500 MG PO for Nutritional Supplement, TAB 0 Refills Calcium Carbonate (Calcium) 600 Mg Tab PO DAILY Cholecalciferol (Vitamin D3) 1,000 Unit Chew 1000 UNITS CHEW DAILY for Nutritional Supplement, #1 BOTTLE 0 Refills Citalopram (Citalopram) 10 Mg Tab 10 MG PO DAILY for Control Depression, #30 TAB 0 Refills Cyanocobalamin (B-12) 1,000 Mcg Subl 1000 MCG PO DAILY for Nutritional Supplement, TAB.SL 0 Refills Finasteride (Finasteride) 5 Mg Tab 5 MG PO DAILY for Manage Prostate Problems, #30 TAB 0 Refills Do not crush. Fish Oil-Cholecalciferol (Fish Oil + D3) 1,200-1,000 Mg-Unit Cap 1 CAP PO DAILY for Nutritional Supplement, #30 CAP 0 Refills Folic Acid (Folic Acid) 800 Mcg Tab 800 MCG PO DAILY for Nutritional Supplement, TAB 0 Refills Metformin (Metformin) 500 Mg Tab 500 MG PO DAILY for Blood Sugar Management, #30 TAB 0 Refills With a meal Metoclopramide (Metoclopramide) 10 Mg Tab 10 MG PO TID, TAB 0 Refills Multiple Vitamin (Multi-Vitamin Daily) 1 Tab Tab 1 TAB PO DAILY for Nutritional Supplement, TAB 0 Refills Omeprazole (Omeprazole) 20 Mg Tab 20 MG PO DAILY, #30 TAB 0 Refills Pravastatin (Pravastatin) 40 Mg Tab 40 MG PO DAILY for Cholesterol Management, #30 TAB 0 Refills Tamsulosin (Tamsulosin) 0.4 Mg Cap 0.4 MG PO HS for Manage Prostate Problems, #30 CAP 0 Refills Discontinued Medications: Metoprolol Tartrate (Metoprolol Tartrate) 50 Mg Tab 50 MG PO BID, #60 TAB 0 Refills Dang Marin MD Jan 27, 2017 09:52
--- NOTE | 2017-01-27 10:55 | HHI.FF ---
Face to Face Verification Diagnosis: (1) Hypertension (2) Small bowel obstruction (3) Physical deconditioning Physical Therapy Order: Evaluate and Treat, Improve ambulation, Strength and gait training Home Health Nursing Order: Medical education Signs/symptoms of disease process Medication education-adverse effect Nursing assessment with vital signs I have seen patient César Huertas on 01/27/17. My clinical findings support the need for the requested home health care services because: Deconditioned w/ increased weakness I certify that my clinical findings support that this patient is homebound because: Post-op weakness Dang Marin MD Jan 27, 2017 10:55
== END 2017-01-27 12:17 | disposition home health service (06) | DRG 336 ==
LOC: NEPC 19:52 → NEDA 23:23 → INTOOBSV 23:23 → OBSVTOIN 23:45 → NEPHCDU 01-19 01:21 → N07A 01-20 22:28
PROVIDERS: ADMIT Family Medicine; ATTEND Family Medicine
PROC: 0WJP4ZZ Inspection of Gastrointestinal Tract, Percutaneous Endoscopic Approach (ICD-10-PCS; 2017-01-23)
PROC: 0DNS4ZZ (ICD-10-PCS; principal; 2017-01-23 20:13)
DX: K56.5 Intestinal adhesions [bands] with obstruction (postinfection) (principal); E87.1 Hypo-osmolality and hyponatremia; E87.5 Hyperkalemia; I48.91 Unspecified atrial fibrillation; E11.9 Type 2 diabetes mellitus without complications; I10 Essential (primary) hypertension; D72.829 Elevated white blood cell count, unspecified; F41.9 Anxiety disorder, unspecified; M19.90 Unspecified osteoarthritis, unspecified site; Z95.0 Presence of cardiac pacemaker; E78.00 Pure hypercholesterolemia, unspecified; H91.90 Unspecified hearing loss, unspecified ear; K21.9 Gastro-esophageal reflux disease without esophagitis; G47.30 Sleep apnea, unspecified; K44.9 Diaphragmatic hernia without obstruction or gangrene; F17.210 Nicotine dependence, cigarettes, uncomplicated; Z85.528 Personal history of other malignant neoplasm of kidney; Z90.5 Acquired absence of kidney; Z82.3 Family history of stroke; K80.20 Calculus of gallbladder without cholecystitis without obstruction; E78.5 Hyperlipidemia, unspecified; Z79.84 Long term (current) use of oral hypoglycemic drugs
CPT/HCPCS: 74000; 74176; 74250; 76705; 80048; 80053; 80076; 81001; 82948; 83690; 84132; 84155; 85025; 85027; 85610; 85730; 87086; 96361; 96374; C9113; J0131; J1100; J1956; J2250; J2270; J2370; J2405; J2710; J3010; J3480; J7030; J7120; Q9963

== ENCOUNTER 2017-08-16 13:47 | Observation (INO) | payer OTHER, MEDICAID ==
[~2017-08-16] VITALS: Ht 167.6 cm; Wt 77.0 kg
[~2017-08-16 13:47] MED LIST changes: +ACET-822 PO; +ALEN1TAB48 PO; -ALEN70TA39 PO; -ASPI81TA82 PO; -B12-1CHW PO; -CALC600T44 PO; +CALC600T5 PO; +CHOL100025 CHEW; +CYAN100025 PO; -DOXA1 PO; +FINA5TAB2 PO; -FISH1000 PO; +FISHCAP4 PO; -FOLI200T PO; +FOLI800T PO; -GLUCTAB PO; +HYDR-3516 PO; +LEVA500T33 PO; +METF500T PO; +MULT-65 PO; -OMEP20TA PO; +OMEP20TA93 PO; -PRAV40TA PO; +PRAV40TA2 PO; -TAB-TAB PO; +TAMS0.4C4 PO; -TOPR50TA PO; +VITA250T3 PO; -VITA400C28 PO
[2017-08-16 14:58] VITALS: BP 127/75; PULSE 54; RESP 17; TEMP 96.8; O2SAT 98
[2017-08-16 15:10] VITALS: O2SAT 98
[2017-08-16] MEDS ORDERED: SODIUM CHLORIDE 0.9% FLUSH 10 ML FLUSH IVF PRN (15:15)
[2017-08-16] MEDS ORDERED: ASPIRIN 325 MG TAB PO ONE (15:15)
--- NOTE | 2017-08-16 15:17 | PD ---
HPI Chief Complaint: Chest Pain Time Seen by Provider: 15:05 Travel History International Travel<30 days: No Contact w/Intl Traveler<30days: No Traveled to known affect area: No History of Present Illness HPI This patient complains of chest pain. Location is center and left side chest pressure. Feels like an aching and a pressure. Started at 11 AM and ended about 2 PM. Duration 3 hours. It was not exertional. Symptom severity was moderate. No alleviating factors. No exacerbating factors. When I evaluated him at 3 PM his chest pain has resolved. He is not short of breath. No cough or fever. He denies history of coronary disease. 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 He thinks he had a stress test last year but is not sure. PFSH Past Medical History Arthritis: Yes Autoimmune Disease: No Anxiety: No Depression: No Heart Rhythm Problems: Yes (AFIB) Cancer: Yes (KIDNEY) Cardiovascular Problems: Yes (irregular heart beat, PACEMAKER PLACEMENT) High Cholesterol: Yes Chest Pain: No Congestive Heart Failure: No Diabetes: Yes Patient Takes Glucophage: No Diminished Hearing: Yes Endocrine: Yes Gastrointestinal Disorders: Yes (ON OMEPRAZOLE) GERD: Yes Genitourinary: Yes Hepatitis: No Hiatal Hernia: Yes Hypertension: No Immune Disorder: No Implanted Vascular Access Dvce: Yes Medical other: Yes (HIGH CHOLESTEROL, ARTHRITIS, 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) Musculoskeletal: Yes Neurologic: No Psychiatric: No Reproductive: No Respiratory: Yes (hx of sleep apnea) Radiation Therapy: No Sleep Apnea: Yes (HX - NOT ON C-PAP) Thyroid Disease: No Past Surgical History Abdominal Surgery: Yes (appendectomy, RIGHT INGUINAL HERNIA) Body Medical Devices: STENT RIGHT URETER Cardiac Surgery: Yes (pacemaker insertion 09/2011 ; RE-INSERTION PACEMAKER 12/09) Ear Surgery: No Endocrine Surgery: No Eye Surgery: No Genitourinary Surgery: Yes (RT KIDNEY REMOVED) Gynecologic Surgery: No Neurologic Surgery: No Oral Surgery: Yes (TONSILLECTOMY) Pacemaker: Yes ([employer]) Thoracic Surgery: No Tonsillectomy: Yes Other Surgery: Yes (POLYNODAL CYST OF SPINE, BLADDER POLYP, PACEMAKER, KIDNEY, APPENDECTOMY) Social History Alcohol Use: No Tobacco Use: Yes (5 CIGARETTES/DAY) Substance Use: No Allergies-Medications (Allergen,Severity, Reaction): Coded Allergies: No Known Allergies (Unverified , 01/18/17) Reported Meds & Prescriptions Reported Meds & Active Scripts Active Hydrocodone-Acetaminophen 5-325 mg Tab 2 Tab PO Q4H PRN Levaquin (Levofloxacin) 500 Mg Tablet 500 Mg PO DAILY Reported Vitamin D3 (Cholecalciferol) 1,000 Unit Chew 1,000 Units CHEW DAILY Finasteride 5 Mg Tab 5 Mg PO DAILY Do not crush. Tylenol Extra Strength (Acetaminophen) 500 Mg Tablet PO HS Calcium (Calcium Carbonate) 600 Mg Tab PO DAILY Folic Acid 800 Mcg Tab 800 Mcg PO DAILY Vitamin C (Ascorbic Acid) 250 Mg Tab 500 Mg PO B-12 (Cyanocobalamin) 1,000 Mcg Subl 1,000 Mcg PO DAILY Multi-Vitamin Daily (Multiple Vitamin) 1 Tab Tab 1 Tab PO DAILY Fish Oil + D3 (Fish Oil-Cholecalciferol) 1,200-1,000 Mg-Unit Cap 1 Cap PO DAILY Tamsulosin (Tamsulosin HCl) 0.4 Mg Cap 0.4 Mg PO HS Pravastatin 40 Mg Tab 40 Mg PO DAILY Metformin (Metformin HCl) 500 Mg Tab 500 Mg PO DAILY With a meal Metoclopramide (Metoclopramide HCl) 10 Mg Tab 10 Mg PO TID Citalopram (Citalopram Hydrobromide) 10 Mg Tab 10 Mg PO DAILY Omeprazole 20 Mg Tab 20 Mg PO DAILY Alendronate (Alendronate Sodium) 70 Mg Tab 70 Mg PO Q7D Review of Systems General / Constitutional: No: Fever Eyes: No: Visual changes HENT: No: Headaches Cardiovascular: Positive: Chest Pain or Discomfort Respiratory: No: Shortness of Breath Gastrointestinal: No: Abdominal Pain Genitourinary: No: Dysuria Musculoskeletal: No: Pain Skin: No Rash Neurologic: No: Weakness Psychiatric: No: Depression Endocrine: No: Polydipsia Hematologic/Lymphatic: No: Easy Bruising Physical Exam Narrative GENERAL: Well-nourished, well-developed patient in no apparent distress. SKIN: Focused skin assessment reveals no rash and nodules. Skin is Warm and dry. HEAD: Atraumatic. Normocephalic. EYES: Pupils equal and round. No scleral icterus. No injection or drainage. ENT: No nasal bleeding or discharge. Mucous membranes pink and moist. NECK: Trachea midline. No JVD. CARDIOVASCULAR: Regular rate and rhythm. No murmur appreciated. RESPIRATORY: No accessory muscle use. Clear to auscultation. Breath sounds equal bilaterally. GASTROINTESTINAL: Abdomen soft, non-tender, nondistended. Hepatic and splenic margins not palpable. MUSCULOSKELETAL: No obvious deformities. No clubbing. No cyanosis. No edema. NEUROLOGICAL: Awake and alert. No obvious cranial nerve deficits. Motor grossly within normal limits. Normal speech. PSYCHIATRIC: Appropriate mood and affect; insight and judgment normal. Data Data Last Documented VS Vital Signs Date Time Temp Pulse Resp B/P (MAP) Pulse Ox O2 Delivery O2 Flow Rate FiO2 08/16/17 15:10 98 Room Air 08/16/17 15:05 62 18 08/16/17 14:58 96.8 127/75 (92) Orders Orders Electrocardiogram (08/16/17 15:12) Basic Metabolic Panel (Bmp) (08/16/17 15:12) Ckmb (Isoenzyme) Profile (08/16/17 15:12) Complete Blood Count With Diff (08/16/17 15:12) Magnesium (Mg) (08/16/17 15:12) Prothrombin Time / Inr (Pt) (08/16/17 15:12) Act Partial Throm Time (Ptt) (08/16/17 15:12) Troponin I (08/16/17 15:12) Chest, Single Ap (08/16/17 15:12) Ecg Monitoring (08/16/17 15:12) Iv Access Insert/Monitor (08/16/17 15:12) Oximetry (08/16/17 15:12) Aspirin (Aspirin) (08/16/17 15:15) Sodium Chloride 0.9% Flush (Ns Flush) (08/16/17 15:15) Labs Laboratory Tests Test 08/16/17 15:20 White Blood Count 14.6 TH/MM3 Red Blood Count 4.21 MIL/MM3 Hemoglobin 13.5 GM/DL Hematocrit 41.9 % Mean Corpuscular Volume 99.4 FL Mean Corpuscular Hemoglobin 32.1 PG Mean Corpuscular Hemoglobin Concent 32.3 % Red Cell Distribution Width 13.8 % Platelet Count 208 TH/MM3 Mean Platelet Volume 9.7 FL Neutrophils (%) (Auto) 90.4 % Lymphocytes (%) (Auto) 5.4 % Monocytes (%) (Auto) 3.7 % Eosinophils (%) (Auto) 0.4 % Basophils (%) (Auto) 0.1 % Neutrophils # (Auto) 13.2 TH/MM3 Lymphocytes # (Auto) 0.8 TH/MM3 Monocytes # (Auto) 0.5 TH/MM3 Eosinophils # (Auto) 0.1 TH/MM3 Basophils # (Auto) 0.0 TH/MM3 CBC Comment DIFF FINAL Differential Comment Prothrombin Time 11.2 SEC Prothromb Time International Ratio 1.1 RATIO Activated Partial Thromboplast Time 22.4 SEC Blood Urea Nitrogen 25 MG/DL Creatinine 1.07 MG/DL Random Glucose 226 MG/DL Calcium Level 8.7 MG/DL Magnesium Level 1.7 MG/DL Sodium Level 142 MEQ/L Potassium Level 3.9 MEQ/L Chloride Level 107 MEQ/L Carbon Dioxide Level 27.1 MEQ/L Anion Gap 8 MEQ/L Estimat Glomerular Filtration Rate 68 ML/MIN Total Creatine Kinase 42 U/L Troponin I 0.07 NG/ML MDM Medical Decision Making Medical Screen Exam Complete: Yes Emergency Medical Condition: Yes Medical Record Reviewed: Yes Differential Diagnosis Differential diagnosis includes DC, angina, pericarditis, pleurisy, GERD, anxiety. Narrative Course I have reviewed the patient's electronic medical record. Reviewed his oncologist note from last fall. 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 I reviewed his EKG which shows paced rhythm without acute ST elevation I reviewed his chest x-ray which is negative Labs sent I gave him an aspirin and placed on telemetry Troponin is 0.07 CK normal CBC and metabolic profiles reasonably normal He has no history of CAD I reviewed with the hospitalist who will do 23 hours on telemetry to rule out cardiac cause of his symptoms Diagnosis Primary Impression: Chest pain Qualified Codes: R07.9 - Chest pain, unspecified Admitting Information Admitting Physician Requests: Observation Lavell Oviedo MD Aug 16, 2017 15:17
[2017-08-16 15:48] LABS: AUTOMATED NEUTROPHIL # 13.2 TH/MM3 (1.8-7.7); BASOPHIL % 0.1 % (0.0-2.0); EOSINOPHIL # 0.1 TH/MM3 (0-0.4); EOSINOPHIL % 0.4 % (0.0-4.0); HEMATOCRIT 41.9 % (39.0-51.0); HEMOGLOBIN 13.5 GM/DL (13.0-17.0); LYMPH % 5.4 % (9.0-44.0); LYMPHOCYTE # 0.8 TH/MM3 (1.0-4.8); MEAN CELL VOLUME 99.4 FL (80.0-100.0); MEAN CORPUSCULAR HEMOGLOBIN 32.1 PG (27.0-34.0); MEAN CORPUSCULAR HGB CONC 32.3 % (32.0-36.0); MEAN PLATELET VOLUME 9.7 FL (7.0-11.0); MONO % 3.7 % (0.0-8.0); MONOCYTE # 0.5 TH/MM3 (0-0.9); NEUT % 90.4 % (16.0-70.0); PLATELET COUNT 208 TH/MM3 (150-450); RED BLOOD COUNT 4.21 MIL/MM3 (4.50-5.90); RED CELL DISTRIBUTION WIDTH 13.8 % (11.6-17.2); WHITE BLOOD COUNT 14.6 TH/MM3 (4.0-11.0)
--- NOTE | 2017-08-16 15:50 | RADRPT ---
EXAM DATE/TIME: 08/16/2017 15:18 [place] COMPARISON: ABDOMEN KUB ONLY, January 21, 2017, 15:41. INDICATIONS : Chest pain. MEDICAL HISTORY : Cardiovascular disease. Chronic obstructive pulmonary disease. renal cancer, diabetes SURGICAL HISTORY : Pacemaker. ENCOUNTER: Initial ACUITY: 1 day PAIN SCORE: 8/10 LOCATION: Bilateral chest FINDINGS: The heart is mildly enlarged. There diffuse chronic interstitial changes within the pulmonary parench yma. These are mild in severity. There is no pleural effusion. A transvenous pacer is in good positio n. The visualized bony structures are grossly intact. CONCLUSION: 1. Cardiomegaly. 2. Mild chronic interstitial changes. 3. No acute abnormality. Pete Caputo MD on August 16, 2017 at 15:47 Board Certified Radiologist. This report was verified electronically.
[2017-08-16 15:57] LABS: INTERNATIONAL NORMALIZED RATIO 1.1 RATIO; PROTHROMBIN TIME - PATIENT 11.2 SEC (9.8-11.6)
[2017-08-16 16:10] LABS: BICARBONATE 27.1 MEQ/L (21.0-32.0); CALCIUM 8.7 MG/DL (8.5-10.1); CREATININE 1.07 MG/DL (0.60-1.30); MAGNESIUM 1.7 MG/DL (1.5-2.5)
[2017-08-16 16:13] LABS: TROPONIN I 0.07 NG/ML (0.02-0.05)
[2017-08-16 17:37] VITALS: BP 116/72; PULSE 68; RESP 18; O2SAT 99
[2017-08-16] MEDS ORDERED: ACETAMINOPHEN 500 MG CPLT PO PRN (17:45)
[2017-08-16] MEDS ORDERED: ENOXAPARIN SODIUM 40 MG/0.4 ML SYRINGE SQ SCH (17:45)
[2017-08-16] MEDS ORDERED: NITROGLYCERIN 0.4 MG SL 25 TABS/BTL SL PRN (17:45)
[2017-08-16] MEDS ORDERED: ONDANSETRON HCL 4 MG/2 ML VIAL IV PUSH PRN (17:45)
--- NOTE | 2017-08-16 17:56 | HHI.HP ---
[facility] Vern Hernandez MD Admission Diagnosis chest pain Diagnoses: (1) Chest pain (2) Hypertension Chief Complaint: Chest pain Travel History International Travel<30 Days: No Contact w/Intl Traveler <30 Da: No Traveled to Known Affected Are: No History of Present Illness The patient is a 76-year-old male who presented to the emergency department with complaint of pressure in the center of his chest that started about 1130 this morning. The discomfort did not radiate. It lasted about 3 hours. It was not exacerbated by exertion or movement. It was associated with diaphoresis , but no dyspnea. 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 No chest pain at this time. Review of Systems Constitutional: DENIES: Fever, Chills, Night Sweats Eyes: DENIES: Blurred vision, Vision loss Ears, nose, mouth, throat: DENIES: Hearing loss Respiratory: DENIES: Cough, Wheezing, Sputum production, Shortness of breath Cardiovascular: COMPLAINS OF: Chest pain, DENIES: Palpitations, Dyspnea on Exertion, Lower Extremity Edema Gastrointestinal: DENIES: Abdominal pain, Constipation, Diarrhea, Nausea, Vomiting Genitourinary: DENIES: Urinary frequency, Urinary incontinence, Urgency, Hematuria, Dysuria, Nocturia Musculoskeletal: DENIES: Joint pain, Muscle aches Integumentary: DENIES: Pruritus, Rash Hematologic/lymphatic: DENIES: Bruising Neurologic: DENIES: Headache Past Family Social History Past Medical History Atrial fibrillation History of kidney cancer GERD Hyperlipidemia Sleep apnea Diabetes mellitus Past Surgical History Right inguinal hernia repair Pacemaker insertion ([employer]) Right nephrectomy Tonsillectomy Pilonidal cyst Appendectomy Laparotomy Reported Medications Hydrocodone-Acetaminophen 5-325 mg Tab 2 Tab PO Q4H PRN Levaquin (Levofloxacin) 500 Mg Tablet 500 Mg PO DAILY Vitamin D3 (Cholecalciferol) 1,000 Unit Chew 1,000 Units CHEW DAILY Finasteride 5 Mg Tab 5 Mg PO DAILY Do not crush. Tylenol Extra Strength (Acetaminophen) 500 Mg Tablet PO HS Calcium (Calcium Carbonate) 600 Mg Tab PO DAILY Folic Acid 800 Mcg Tab 800 Mcg PO DAILY Vitamin C (Ascorbic Acid) 250 Mg Tab 500 Mg PO B-12 (Cyanocobalamin) 1,000 Mcg Subl 1,000 Mcg PO DAILY Multi-Vitamin Daily (Multiple Vitamin) 1 Tab Tab 1 Tab PO DAILY Fish Oil + D3 (Fish Oil-Cholecalciferol) 1,200-1,000 Mg-Unit Cap 1 Cap PO DAILY Tamsulosin (Tamsulosin HCl) 0.4 Mg Cap 0.4 Mg PO HS Pravastatin 40 Mg Tab 40 Mg PO DAILY Metformin (Metformin HCl) 500 Mg Tab 500 Mg PO DAILY With a meal Metoclopramide (Metoclopramide HCl) 10 Mg Tab 10 Mg PO TID Citalopram (Citalopram Hydrobromide) 10 Mg Tab 10 Mg PO DAILY Omeprazole 20 Mg Tab 20 Mg PO DAILY Alendronate (Alendronate Sodium) 70 Mg Tab 70 Mg PO Q7D Allergies: Coded Allergies: No Known Allergies (Unverified , 01/18/17) Family History Stroke Social History Smokes 5 cigarettes per day. Denies illicit drug use. Denies alcohol use. Physical Exam Vital Signs Vital Signs Date Time Temp Pulse Resp B/P (MAP) Pulse Ox O2 Delivery O2 Flow Rate FiO2 08/16/17 17:37 68 18 116/72 (87) 99 Nasal Cannula 2.00 08/16/17 15:10 98 Room Air 08/16/17 15:05 62 18 97 Room Air 08/16/17 14:58 96.8 54 17 127/75 (92) 98 Physical Exam GENERAL: Elderly male in no acute distress. HEENT: Normocephalic, atraumatic. Pupils equal, round and reactive. Extraocular movements intact. No scleral icterus. No injection or drainage. Oropharynx is clear. Mucous membranes are moist. CARDIOVASCULAR: Regular rate and rhythm without murmurs, gallops, or rubs. RESPIRATORY: Clear to auscultation. No wheezes, rales, or rhonchi. Breathing is non-labored. GASTROINTESTINAL: Abdomen soft, non-tender, nondistended. EXTREMITIES: No lower extremity edema. No calf tenderness. PSYCH: Alert and oriented x 3. Laboratory Laboratory Tests Test 08/16/17 15:20 White Blood Count 14.6 Red Blood Count 4.21 Hemoglobin 13.5 Hematocrit 41.9 Mean Corpuscular Volume 99.4 Mean Corpuscular Hemoglobin 32.1 Mean Corpuscular Hemoglobin Concent 32.3 Red Cell Distribution Width 13.8 Platelet Count 208 Mean Platelet Volume 9.7 Neutrophils (%) (Auto) 90.4 Lymphocytes (%) (Auto) 5.4 Monocytes (%) (Auto) 3.7 Eosinophils (%) (Auto) 0.4 Basophils (%) (Auto) 0.1 Neutrophils # (Auto) 13.2 Lymphocytes # (Auto) 0.8 Monocytes # (Auto) 0.5 Eosinophils # (Auto) 0.1 Basophils # (Auto) 0.0 CBC Comment DIFF FINAL Differential Comment Prothrombin Time 11.2 Prothromb Time International Ratio 1.1 Activated Partial Thromboplast Time 22.4 Blood Urea Nitrogen 25 Creatinine 1.07 Random Glucose 226 Calcium Level 8.7 Magnesium Level 1.7 Sodium Level 142 Potassium Level 3.9 Chloride Level 107 Carbon Dioxide Level 27.1 Anion Gap 8 Estimat Glomerular Filtration Rate 68 Total Creatine Kinase 42 Troponin I 0.07 Result Diagram: 08/16/17 1520 08/16/17 1520 Imaging Last Impressions Chest X-Ray 08/16/17 1512 Signed Impressions: Service Date/Time: Wednesday, August 16, 2017 15:18 - CONCLUSION: 1. Cardiomegaly. 2. Mild chronic interstitial changes. 3. No acute abnormality. MD Per Olivai VTE Risk Assessment Peri VTE Risk Assessment: Mod/High Risk (score >= 2) Caprini Risk Assessment Model Point Value = 1 Point Value = 2 Point Value = 3 Point Value = 5 Age 41-60 Minor surgery BMI > 25 kg/m2 Swollen legs Varicose veins or History of unexplained or recurrent spontaneous Oral contraceptives or hormone replacement Sepsis (< 1 month) Serious lung disease, including pneumonia (< 1 month) Abnormal pulmonary function Acute myocardial infarction Congestive heart failure (< 1 month) History of inflammatory bowel disease Medical patient at bed rest Age 61-74 Arthroscopic surgery Major open surgery (> 45 min) Laparoscopic surgery (> 45 min) Malignancy Confined to bed (> 72 hours) Immobilizing plaster cast Central venous access Age >= 75 History of VTE Family history of VTE Factor V Leiden Prothrombin [id number] Lupus anticoagulant Anticardiolipin antibodies Elevated serum homocysteine Heparin-induced thrombocytopenia Other congenital or acquired thrombophilia Stroke (< 1 month) Elective arthroplasty Hip, pelvis, or leg fracture Acute spinal cord injury (< 1 month) Prophylaxis Regimen Total Risk Factor Score Risk Level Prophylaxis Regimen 0-1 Low Early ambulation 2 Moderate Order ONE of the following: *Sequential Compression Device (SCD) *Heparin 5000 units SQ BID 3-4 Higher Order ONE of the following medications: *Heparin 5000 units SQ TID *Enoxaparin/Lovenox 40 mg SQ daily (WT < 150 kg, CrCl > 30 mL/min) *Enoxaparin/Lovenox 30 mg SQ daily (WT < 150 kg, CrCl > 10-29 mL/min) *Enoxaparin/Lovenox 30 mg SQ BID (WT < 150 kg, CrCl > 30 mL/min) AND/OR *Sequential Compression Device (SCD) 5 or more Highest Order ONE of the following medications: *Heparin 5000 units SQ TID (Preferred with Epidurals) *Enoxaparin/Lovenox 40 mg SQ daily (WT < 150 kg, CrCl > 30 mL/min) *Enoxaparin/Lovenox 30 mg SQ daily (WT < 150 kg, CrCl > 10-29 mL/min) *Enoxaparin/Lovenox 30 mg SQ BID (WT < 150 kg, CrCl > 30 mL/min) AND *Sequential Compression Device (SCD) Assessment and Plan Assessment and Plan 1. Chest pain, elevated troponin: Check serial cardiac enzymes and EKGs. Monitor on telemetry. 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 Continue aspirin. 2. Diabetes mellitus: Monitor Accu-Cheks and cover with sliding scale insulin. 3. Acute kidney injury: Possibly secondary to dehydration. Patient states that he has not been drinking much water recently. Monitor labs. Gentle IV fluid hydration. Patient is status post right nephrectomy. Avoid nephrotoxins. 4. Hypertension: Continue home medications once patient's medication reconciliation is updated. 5. GERD: PPI. 6. DVT prophylaxis: Heparin. Problem Qualifiers (1) Chest pain: Qualified Codes: R07.9 - Chest pain, unspecified Lavell Eugene MD Aug 16, 2017 17:56
[2017-08-16] MEDS ORDERED: GLUCAGON 1 MG/ML VIAL OTHER PRN (18:00)
[2017-08-16] MEDS ORDERED: NS + KCL 20 MEQ INJ 1,000 ML IV SCH (18:00)
[2017-08-16] MEDS ORDERED: DEXTROSE 50% IN WATER 50 ML VIAL(D50) IV PUSH PRN (18:00)
[2017-08-16] MEDS ORDERED: INSULIN ASPART SUPPLEMENTAL SCALE SQ SCH (21:00)
[2017-08-16] MEDS: HEPARIN SODIUM - SQ 10,000 UNITS/ML VIAL SQ SCH (22:22)
[2017-08-16 22:41] LABS: TROPONIN I 0.08 NG/ML (0.02-0.05)
[2017-08-16 23:39] VITALS: BP 115/61; PULSE 59; RESP 18; TEMP 98.3; O2SAT 94
[2017-08-17 04:00] VITALS: PULSE 60
[2017-08-17 04:39] LABS: AUTOMATED NEUTROPHIL # 6.3 TH/MM3 (1.8-7.7); BASOPHIL % 0.3 % (0.0-2.0); EOSINOPHIL # 0.2 TH/MM3 (0-0.4); EOSINOPHIL % 2.7 % (0.0-4.0); HEMATOCRIT 34.8 % (39.0-51.0); HEMOGLOBIN 11.7 GM/DL (13.0-17.0); LYMPH % 13.4 % (9.0-44.0); LYMPHOCYTE # 1.1 TH/MM3 (1.0-4.8); MEAN CELL VOLUME 97.8 FL (80.0-100.0); MEAN CORPUSCULAR HEMOGLOBIN 32.9 PG (27.0-34.0); MEAN CORPUSCULAR HGB CONC 33.7 % (32.0-36.0); MEAN PLATELET VOLUME 9.5 FL (7.0-11.0); MONO % 5.5 % (0.0-8.0); MONOCYTE # 0.4 TH/MM3 (0-0.9); NEUT % 78.1 % (16.0-70.0); PLATELET COUNT 178 TH/MM3 (150-450); RED BLOOD COUNT 3.56 MIL/MM3 (4.50-5.90); RED CELL DISTRIBUTION WIDTH 13.5 % (11.6-17.2); WHITE BLOOD COUNT 8.1 TH/MM3 (4.0-11.0)
[2017-08-17 05:10] LABS: BICARBONATE 26.9 MEQ/L (21.0-32.0); CALCIUM 8.9 MG/DL (8.5-10.1); CREATININE 0.96 MG/DL (0.60-1.30); TROPONIN I 0.09 NG/ML (0.02-0.05)
[2017-08-17 08:24] VITALS: BP 118/67; PULSE 60; RESP 16; TEMP 98.7; O2SAT 97
--- NOTE | 2017-08-17 08:44 | EKG ---
Date Performed: 08/17/2017 Time Performed: 03:53:00 PTAGE: 76 years EKG: ELECTRONIC ATRIAL PACEMAKER ELECTRONIC VENTRICULAR PACEMAKER ABNORMAL RHYTHM ECG PREVIOUS TRACING : 08/16/2017 21.03 No significant change from previous tracing noted. DOCTOR: Jack Jackson Interpretating Date/Time 08/17/2017 08:25:02
--- NOTE | 2017-08-17 08:45 | EKG ---
Date Performed: 08/16/2017 Time Performed: 21:03:35 PTAGE: 76 years EKG: ELECTRONIC ATRIAL PACEMAKER ELECTRONIC VENTRICULAR PACEMAKER ABNORMAL RHYTHM ECG PREVIOUS TRACING : 08/16/2017 15.14 No significant change from previous tracing noted. DOCTOR: Jack Jackson Interpretating Date/Time 08/17/2017 08:32:11
--- NOTE | 2017-08-17 08:49 | MB ---
cc: Jack Jackson MD DATE OF CONSULT: 08/17/2017 REASON FOR CONSULTATION: Chest pain, abnormal cardiac enzymes. HISTORY OF PRESENT ILLNESS: The patient is a 76-year-old white male with a history of sleep apnea, hypertension, diabetes, hyperlipidemia, chronic intermittent second-degree AV block type 2, pacemaker implant, nonsustained ventricular tachycardia, who was in his usual state of health up until 11:00 a.m. yesterday morning when after physical therapy, he developed a substernal chest "pressure" associated with shortness of breath without nausea or diaphoresis. The chest discomfort lasted about an hour and a half in a constant fashion. He denies pleurisy, dizziness, syncope, near syncope, palpitations, pedal edema, paroxysmal nocturnal dyspnea. Since coming into the hospital, he has had no further chest discomfort. PAST MEDICAL HISTORY: 1. Sleep apnea. 2. 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 3. Chronic intermittent second-degree AV block, both type 1 and type 2. 4. Bowel obstruction 12/2016 due to adhesions, status post adhesiolysis 01/23/2017. 5. Diabetes. 6. Hyperlipidemia. 7. Hypertension. 8. [employer] pacemaker implant in 2011. 9. History of renal carcinoma, urothelial cancer, status post right nephrectomy and right ureteral excision 2011. 10. History of nonsustained ventricular tachycardia demonstrated on pacemaker checks dating back to 2011. CARDIAC MEDICATIONS AT HOME: 1. Pravastatin 40 mg at bedtime. 2. Metoprolol 50 mg b.i.d. ALLERGIES: NO KNOWN DRUG ALLERGIES. SOCIAL HISTORY: The patient smokes 1 cigarette per day. He is a chronic smoker. There is no history of alcohol abuse. REVIEW OF SYSTEMS: As in history of present illness, otherwise negative or noncontributory. He also denies headache, recent flu symptoms, dyspepsia, bright red blood per rectum, melena. PHYSICAL EXAMINATION: VITAL SIGNS: His blood pressure 115/60 with a pulse of 60, respirations 18. GENERAL: He is a well-developed, well-nourished white male, in no acute distress. NECK: Jugular venous pressure is normal. Carotid pulses are 2+ bilaterally and without bruits. CHEST: Reveals clear lungs wilcox. CARDIAC: He has a regular rhythm and rate without S3, S4 or murmur. ABDOMEN: He has a soft, nontender abdomen. Bowel sounds are present. There is no definite hepatosplenomegaly. EXTREMITIES: Reveals no clubbing, cyanosis, or edema. DIAGNOSTIC STUDIES: Laboratory data includes WBC 8.1, hemoglobin 11.7, platelets 178. Potassium 4.1, BUN 24, creatinine 0.96. Troponin 0.09. EKG shows AV paced rhythm. Chest x-ray shows no acute disease. IMPRESSION: Slightly abnormal troponin levels, symptoms suggestive of unstable angina in a 76-year-old white male with a history of multiple medical problems including diabetes, hypertension, hyperlipidemia, pacemaker implant, sleep apnea, renal cancer, paroxysmal ventricular tachycardia. CK levels are negative for myocardial infarction. EKG is nondiagnostic due to paced rhythm. I did discuss the potential diagnostic/treatment options with the patient. In light of his multiple risk factors for coronary disease including diabetes, hypertension, hyperlipidemia, tobacco abuse, and his history of intermittent paroxysmal ventricular tachycardia, I have overall recommended he undergo cardiac catheterization with possible percutaneous coronary intervention, as the likelihood of severe coronary artery disease is fairly high. The nature of cardiac catheterization and the potential risks including, but not limited to , myocardial infarction, stroke, arrhythmia, bleeding, infection, renal failure have been outlined to the patient. He agrees to proceed. RECOMMENDATIONS: 1. Continue beta rosalia therapy and aspirin. 2. Cardiac catheterization today. MD KATJA Yee/NIKITA , 07:47 AM , 08:48 AM RUSTY
[2017-08-17] MEDS ORDERED: ASPIRIN 325 MG TAB PO SCH (09:00)
--- NOTE | 2017-08-17 09:04 | HHI.PR ---
Subjective Remarks She he appears in not acute distress. No chest pain overnight. No shortness of breath, lightheadedness, palpitations, diaphoresis. Objective Vitals Vital Signs Date Time Temp Pulse Resp B/P (MAP) Pulse Ox O2 Delivery O2 Flow Rate FiO2 08/17/17 08:24 98.7 60 16 118/67 (84) 97 08/17/17 04:00 60 08/16/17 23:39 98.3 59 18 115/61 (79) 94 08/16/17 17:37 68 18 116/72 (87) 99 Nasal Cannula 2.00 08/16/17 15:10 98 Room Air 08/16/17 15:05 62 18 97 Room Air 08/16/17 14:58 96.8 54 17 127/75 (92) 98 I/O 08/16/17 08/16/17 08/16/17 08/17/17 08/17/17 08/17/17 07:00 15:00 23:00 07:00 15:00 23:00 Intake Total 240 ml Balance 240 ml Intake Oral 240 ml # Voids 1 Result Diagram: 08/17/17 0422 08/17/17 0422 Imaging Last Impressions Chest X-Ray 08/16/17 1512 Signed Impressions: Service Date/Time: Wednesday, August 16, 2017 15:18 - CONCLUSION: 1. Cardiomegaly. 2. Mild chronic interstitial changes. 3. No acute abnormality. Pete Caputo MD Objective Remarks GENERAL: Elderly pleasant male in no acute distress. HEENT: Normocephalic, atraumatic. Pupils equal, round and reactive. Extraocular movements intact. No scleral icterus. No injection or drainage. Oropharynx is clear. Mucous membranes are moist. CARDIOVASCULAR: Regular rate and rhythm without murmurs, gallops, or rubs. RESPIRATORY: Clear to auscultation. No wheezes, rales, or rhonchi. Breathing is non-labored. GASTROINTESTINAL: Abdomen soft, non-tender, nondistended. EXTREMITIES: No lower extremity edema. No calf tenderness. PSYCH: Alert and oriented x 3. A/P Problem List: (1) Chest pain ICD Code: R07.9 - Chest pain, unspecified Status: Acute (2) Hypertension ICD Code: I10 - Essential (primary) hypertension Assessment and Plan 1. Chest pain, elevated troponin: Monitor on telemetry. Consult patient's research anthropologist. Continue aspirin BB. Status post cardiac cath by Dr Jackson . Clean cath. Continue medical management. Cleared by cardiology for discharge for follow-up as outpatient. 2. Diabetes mellitus: Monitor Accu-Cheks and cover with sliding scale insulin. 3. Acute kidney injury: Possibly secondary to dehydration. Patient states that he has not been drinking much water recently. Monitor labs. Gentle IV fluid hydration. Patient is status post right nephrectomy. Avoid nephrotoxins. 4. Hypertension: Continue home medications once patient's medication reconciliation is updated. 5. GERD: PPI. 6. DVT prophylaxis: Heparin. Patient improved, discharge and stable condition to follow-up as outpatient with PCP and consultants Problem Qualifiers (1) Chest pain: Qualified Codes: R07.9 - Chest pain, unspecified Blaire Bernal MD Aug 17, 2017 09:04
[2017-08-17] MEDS: HEPARIN SODIUM - SQ 10,000 UNITS/ML VIAL SQ SCH (09:56)
[2017-08-17 11:42] VITALS: BP 113/66; PULSE 60; RESP 16; TEMP 97.5; O2SAT 97
[2017-08-17] MEDS ORDERED: IOHEXOL 350 MG/ML 100 ML BTL (for Cath Lab) OTHER ONE (14:38)
[2017-08-17] MEDS ORDERED: IOHEXOL 350 MG/ML 50 ML BTL (for Cath Lab) OTHER ONE (14:38)
[2017-08-17] MEDS ORDERED: HEPARIN-NS/PF FLUSH BAG 2,000 ML IV FLUSH ONE (15:02)
[2017-08-17] MEDS ORDERED: NITROGLYCERIN INJ 0 ML ONE (15:02)
[2017-08-17] MEDS ORDERED: MIDAZOLAM HCL 2 MG/2 ML VIAL ONE (15:02)
--- NOTE | 2017-08-17 15:42 | CATHPROC ---
Collective IP HIS Report Study Information Study Number Admission Scheduled Start Study Start [id number] Aug 16 2017 5:40PM 08/17/2017 Aug 17 2017 2:43PM [facility] Cardiac Catheterization Admit Source Facility Department Emergency department [facility] - Rehabilitation Medicine Physician Physician and Clinical Staff Initial Jack Anne Blast Furnace Operator Tex Salamanca,GIANNA Blast Furnace Operator Jailene Avalos,GIANNA Recorder Nida Valentine ,RT(R) ScrAmee Hyman,RT(R) (BS) Procedures Performed Procedure Location (Site) Vessel Name Angiogram LV LV Ventricle Coronary Angiograms LCA Left Coronary Coronary Angiograms RCA Right Coronary L Heart Cath Equipment Time Centrifugal Supervisor Description Size Mfg Part Number Used/Scraped TRANSDUCER, TRUWAVE [id number] 14:50 GAMBINO ORTEGA * Used W/STOCKCOCK *[id number] 15:25 [employer] MEDICAL VASCADE, FR6 CLOSURE SYSTEM FR 6\\7 Used *[id number] *[id number] *[id number] PIGTAIL ANG. 145 INFINITI [id number] CATHETER *[id number] 14:50 [employer] INDUSTRIES PACK, CCL CUSTOM * Used *[id number] 14:50 [employer] PACER PEN, SKIN DUAL W/ RULER * Used *[id number] 14:50 [employer] SHEATH, FR6.5 PRELUDE 11CM FR 6.5 038ACT Used *[id number] 14:50 [employer] 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 Glucophage History: Allergies Allergy Reaction No Known Allergies History: Risk Factors Family History of Hypertension Dyslipidemia Previous [place] Previous Heart Failure Premature CAD Yes Yes No No No Prior Valve Prior PCI Prior CABG Surgery No No No Cerebrovascular Peripheral Artery Chronic Lung On Dialysis Diabetes Diabetes Therapy Disease Disease Disease No No No No Yes Oral History: Stress Tests Stress or Imaging Studies Performed No History: Other Current Smoker Method Yes Cigarettes Labs Hgb (g/dl) Hct (%) WBC (l/cumm) Platelets (thousands) 11.60-17.00 35.00-51.00 4.00-11.00 150.00-450.00 11.7 34.8 8.1 178 Glucose (mg/dl) BUN (mg/dl) Creatinine (mg/dl) BUN:Creatinine (1:x) 74.00-106.00 7.00-18.00 0.50-1.30 10.00-20.00 111 24 0.9 26.7 Na (meq/l) K (meq/l) 136.00-145.00 3.50-5.10 141 4.1 INR (PTT:PT) 0.90-1.10 1.1 Troponin I (ng/ml) CPK (u/l) CPK-MB (ng/ML) 0.02-0.05 26.00-308.00 0.50-3.60 0.09 35 Not Drawn Medication Medication Total Dose (Bolus/Oral) Medication Total Dosage/Unit 1% XYLOCAINE 15 mL VERSED 2 mg Medications (Bolus/Oral) Medication Time Given Dosage/Unit Administered By Reason 1% XYLOCAINE 08/17/2017 3:04:36 PM 15 mL Jack Jackson 15 mL 1% XYLOCAINE given in lab by Jack Jackson in Right Groin via Subcutaneous. Ordered by Rangel Jackson enn. VERSED 08/17/2017 3:05:53 PM 2 mg Tex Salamanca 2 mg VERSED given in lab by Tex Salamanca RN in Left Hand via Peripheral IV. Ordered by Jack Jackson. Medication (Drip) Medication Time Given Dosage/Unit Concentration/Unit Diluent (ml) Solutio n IV Solutions 08/17/2017 2:45:49 PM 50 mL (IV) NaCl .9 IV Solutions given in lab by Jailene Avalos, GIANNA in Left Hand via Peripheral IV. Pump/Drip Flow using NaCl .9. Initial Case Assessment Cardiovascular HR Rhythm NIBP Chest Pain 59 SR 136/79 0 Edema Present Skin color Skin Mild Normal Warm Dry Circulatory - Right Pulses Dorsalis Pedis Femoral 1 1 Scale (0,1,2,3,4,d) Circulatory - Left Pulses Dorsalis Pedis Femoral 1 1 Scale (0,1,2,3,4,d) Neurological State Oriented to time-place- Alert Moves all extremities person Respiration - General Respiration Rate SpO2 (%) (B/min) 11 98 Final Case Assessment Cardiovascular HR NIBP Chest Pain 60 120/66 0 Edema Present Skin color Skin Mild Normal Warm Dry Circulatory - Right Pulses Dorsalis Pedis Femoral 1 1 Scale (0,1,2,3,4,d) Circulatory - Left Pulses Dorsalis Pedis Femoral 1 1 Scale (0,1,2,3,4,d) Circulatory - Lower Extremities Color Lower Right Color Lower Left Normal Normal Neurological State Oriented to time-place- Alert Moves all extremities person Respiration - General Respiration Rate SpO2 (%) (B/min) 14 93 Chronological Log Time Study Chronological Log 14:40:22 Patient arrived via Bed. 14:44:56 Patient Name, D.O.B, / Armband Verified By R.N. 14:44:57 Consent signed by the physician and the patient and verified by the Rehabilitation Medicine Physician staff. 14:44:57 Pre-op and post- op instructions given; patient acknowledges understanding of instructions. 14:44:58 Verbal Stimulation=2 Physical Stimulation=2 Airway=2 Respiration=2 TOTAL=8. (0=absent, 1=li mited, 2=present) 14:45:04 Presedation assessment performed by Rehabilitation Medicine Physician RN. 14:45:10 Patient has been NPO for More than 6Hrs. 14:45:12 Skin Breakdown- none per pt 14:45:41 Patient Warmer Placed on the Table. 14:45:46 Eric Prominences Protected 14:45:48 A # 18 IV was noted in the Hand (left). Grade = 0 14:45:49 IV Solutions given in lab by Jailene Avalos, RN in Left Hand via Peripheral IV. Pump/Drip Flow using NaCl .9. 14:45:50 History and physical on the chart or being dictated. Assessment: Initial Case, HR=59 BPM, Rhythm=SR, XXJK=461/79 mmhg, Chest Pain=0, Edema=Mild, Col or=Normal, Skin = Warm, Dry Right Pulses: Jesse Ped=1, Femoral=1 14:45:52 Left Pulses: Jesse Ped=1, Femoral=1 Neurological: State=Alert, Ox3, DAVIS Respiration: Resp=11 B/min, SpO2=98 % Vitals capture started with the following parameters, Patient=Adult, Interval=5 min, Initial Pr upuxxo=286 mmHg, 14:52:42 Deflation Rate=5 mmHg, Cuff placed on Right Arm 14:53:53 HR=60 bpm, LROX=635/79 mmhg, SpO2=98 %, Resp=13 B/min 14:54:55 Reference ECG taken 14:55:50 Bilateral groins prepped with 2% chlorhexidine, and draped after a 3 minute waiting time. 14:56:17 MD paged 14:57:22 MD responded 14:58:52 HR=59 bpm, HKAF=428/75 mmhg, SpO2=96.0 %, Resp=8 B/min, Pain=0, Vikram=10, Vernon=2 15:00:00 MD arrived. 15:00:24 Pressure channel 1 zeroed. 15:03:19 HR=60 bpm, XRAG=845/78 mmhg, SpO2=95.0 %, Resp=20 B/min, Pain=0, Vikram=10, Vernon=2 Time Out. Correct patient, correct procedure, correct physician, power injector loaded with con trast with surgical team 15:04:10 present. Time Out Concurred by MD and individual staff in procedure. 15:04:27 Case Start 15:04:36 15 mL 1% XYLOCAINE given in lab by Jack Jackson in Right Groin via Subcutaneous. Ordered by Jack Jackson. 15:05:53 2 mg VERSED given in lab by Tex Salamanca, RN in Left Hand via Peripheral IV. Ordered by Jack Hurd. 15:06:35 Access site was Right Femoral Artery. 15:06:45 A SHEATH, FR6.5 PRELUDE 11CM FR 6.5 was advanced into the Fem Art (right) using the Percuta neous technique. A JL 4.0 INFINITI CATHETER FR 6 was advanced over a wire. OMNIPAQUE, 350 MG, 150ML 150ML was us ed for 15:07:15 injections. 15:08:22 HR=60 bpm, QKBC=516/73 mmhg, SpO2=95.0 %, Resp=15 B/min, Pain=0, Vikram=10, Vernon=2 15:08:26 The LCA was injected and visualized at various angles. OMNIPAQUE, 350 MG, 150ML 150ML used . After removing the current catheter a 3DRC INFINITI CATHETER FR 6 was advanced over a WIRE, 3MM J .035 180CM 15:09:28 180CM. Recorded Pressure: Ao, HR=60, Condition=Condition 1 15:11:11 (Aorta) Ao 121/60/82 15:11:27 The RCA was injected and visualized at various angles. OMNIPAQUE, 350 MG, 150ML 150ML used . 15:13:23 HR=60 bpm, EWYK=796/61 mmhg, SpO2=90.0 %, Resp=2 B/min, Pain=0, Vikram=10, Vernon=2 After removing the current catheter a PIGTAIL ANG. 145 INFINITI CATHETER FR 6 was advanced over a WIRE, 3MMJ 15:16:34 .035 180CM 180CM. Recorded Pressure: LV, HR=60, Condition=Condition 1 15:17:54 (Left Ventricle) LV 113/5/13 15:18:18 HR=60 bpm, NWRF=910/61 mmhg, SpO2=92.0 %, Resp=13 B/min, Pain=0, Vikram=10, Vernon=2 15:19:42 The LV was injected at 12 cc/sec for a total of 40. OMNIPAQUE, 350 MG, 150ML 150ML used. Recorded Pressure: LV, Ao, HR=60, Condition=Condition 1 15:20:13 (Left Ventricle) LV 112/5/13, (Aorta) Ao 113/51/73 15:21:26 Catheter was removed 15:22:31 An injection in the Fem Art (right) was made through the SHEATH, FR6.5 PRELUDE 11CM FR 6.5. 15:23:07 Case End 15:23:12 VASCADE, FR6 CLOSURE SYSTEM FR 6\\7 placement in the Fem Art (right) 15:23:19 HR=60 bpm, PKAM=630/66 mmhg, SpO2=93.0 %, Resp=9 B/min, Pain=0, Vikram=10, Vernon=2 Assessment: Final Case, HR=60 BPM, AVWA=583/66 mmhg, Chest Pain=0, Edema=Mild, Color=Normal, S kin = Warm, Dry Right Pulses: Jesse Ped=1, Femoral=1 Left Pulses: Jesse Ped=1, Femoral=1 15:24:09 Lower Right Extremities: Color=Normal Lower Left Extremities: Color=Normal Neurological: State=Alert, Ox3, DAVIS Respiration: Resp=14 B/min, SpO2=93 % 15:24:13 Catheter(s) removed without difficulty 15:24:16 No case complications noted. 15:24:18 Cine recording checked. 15:24:19 Bedside Report will be given. 15:24:28 A Left Heart Cath was performed. 15:28:22 HR=60 bpm, XTQT=347/65 mmhg, SpO2=93.0 %, Resp=5 B/min, Pain=0, Vikram=10, Vernon=2 15:32:07 Sterile dressing applied to site 15:33:19 HR=60 bpm, GUUS=780/71 mmhg, SpO2=93.0 %, Resp=6 B/min, Pain=0, Vikram=10, Vernon=2 15:38:22 JBFZ=315/75 mmhg, Pain=0, Vikram=10, Vernon=2 15:39:58 Vitals capture stopped. 15:41:54 [facility] to [facility] End Study - Contrast Media Used In Study Contrast Total Opened (mL) Total Used (mL) Total Wasted (mL) Omnipaque 115 115 0 End Study - Maximum Contrast Load Max Contrast Load (mL) 426.8 End Study - Radiation Exposure Fluoro Time (minutes) 2.2 End Study - Patient Disposition Complications Transferred To Interventional Outcome No Telemetry Bed No attempt made
[2017-08-17] MEDS ORDERED: ATROPINE SULFATE 1 MG/ML VIAL IVP PRN (15:45)
[2017-08-17] MEDS ORDERED: SODIUM CHLOR 0.9% 250 ML INJ 250 ML IV PRN (15:45)
[2017-08-17] MEDS ORDERED: ONDANSETRON HCL 4 MG/2 ML VIAL IV PUSH PRN (15:45)
[2017-08-17] MEDS ORDERED: SODIUM CHLOR 0.9% 1000 ML INJ 1,000 ML IV ONE (16:00)
--- NOTE | 2017-08-17 16:02 | EKG ---
Date Performed: 08/16/2017 Time Performed: 15:14:06 PTAGE: 76 years EKG: ELECTRONIC ATRIAL PACEMAKER ELECTRONIC VENTRICULAR PACEMAKER ABNORMAL RHYTHM ECG PREVIOUS TRACING : 08/16/2017 15.10 No significant change from previous tracing noted. DOCTOR: Jack Jackson Interpretating Date/Time 08/17/2017 16:00:01
--- NOTE | 2017-08-17 16:06 | MA ---
cc: Jack Jackson MD PROCEDURE: Left heart catheterization, selective coronary angiography, left ventriculography. PROCEDURE NOTE: The patient was brought to the cardiac catheterization laboratory in a fasting state after having signed informed consent. The right groin was prepped and draped as per policy and anesthetized with 1% lidocaine. Arterial access was obtained via the right femoral artery and a 6 Israeli sheath placed. Coronary arteriography was performed using 6 Israeli Samuel left 4.0 and right progressive catheters. Left ventriculography was done using a standard 6 Israeli pigtail. There were no apparent, immediate complications. His arteriotomy site was closed with VASCADE. HEMODYNAMIC DATA: Left ventricle 112 with an end diastolic pressure of 13, aorta 113/51 with a mean of 73. There was no significant transvalvular aortic gradient on pullback of the pigtail catheter. CORONARY ARTERIOGRAPHY: The left main has minimal luminal irregularities. The left anterior descending is a relatively small caliber vessel giving rise to a small diagonal. The diagonal is normal. There is up to 10% stenosis in the proximal and mid LAD. The left circumflex is a fairly large, possibly codominant vessel with up to 20% proximal disease. It gives rise to a medium size obtuse marginal, which has diffuse up to 30% disease from its proximal to mid portion. There is a medium size ramus intermedius, which has minimal luminal irregularities proximally. The right coronary artery is a medium size vessel with minimal diffuse luminal irregularities. It questionably is totally occluded very distally. There are few collaterals from the LAD and left circumflex to what may be the terminal portion of the right coronary. There is also late filling of a globular structure near the proximal right coronary, which may be an aneurysm or pseudoaneurysm. CONCLUSIONS: 1. Normal left ventricular function with estimated ejection fraction of 55%. 2. Possible total occlusion of the very distal portion of the right coronary. It is difficult to find an occluded branch or region in the distal right coronary, but there are some collaterals from the left anterior descending and left circumflex systems to what appears to be a terminal portion of the right coronary. 3. 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 MD KATJA Yee/JANE , 03:33 PM , 04:04 PM RUSTY
--- NOTE | 2017-08-17 16:32 | HHI.DCPOC ---
Discharge Care Plan Goals to Promote Your Health * To prevent worsening of your condition and complications * To maintain your health at the optimal level Directions to Meet Your Goals Take your medications as prescribed Follow your dietary instruction Follow activity as directed Keep your appointments as scheduled Take your immunizations and boosters as scheduled If your symptoms worsen call your PCP, if no PCP go to Urgent Care Center or Emergency Room Smoking is Dangerous to Your Health. Avoid second hand smoke Call the 24-hour hour crisis hotline for domestic abuse at Blaire Bernal MD Aug 17, 2017 16:32
--- NOTE | 2017-08-17 20:39 | HHI.DS ---
Discharge Summary Admission Date Aug 16, 2017 at 17:40 Discharge Date: Aug 17, 2017 Admitting Diagnosis chest pain (1) Chest pain ICD Code: R07.9 - Chest pain, unspecified Status: Acute (2) Hypertension ICD Code: I10 - Essential (primary) hypertension Procedures Cardiac cath 08/17/17 Brief History - From Admission The patient is a 76-year-old male who presented to the emergency department with complaint of pressure in the center of his chest that started about 1130 this morning. The discomfort did not radiate. It lasted about 3 hours. It was not exacerbated by exertion or movement. It was associated with diaphoresis , but no dyspnea. 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 No chest pain at this time. CBC/BMP: 08/17/17 0422 08/17/17 0422 Significant Findings Laboratory Tests Test 08/16/17 15:20 08/16/17 21:02 08/17/17 04:22 White Blood Count 14.6 TH/MM3 (4.0-11.0) Red Blood Count 4.21 MIL/MM3 (4.50-5.90) 3.56 MIL/MM3 (4.50-5.90) Neutrophils (%) (Auto) 90.4 % (16.0-70.0) 78.1 % (16.0-70.0) Lymphocytes (%) (Auto) 5.4 % (9.0-44.0) Neutrophils # (Auto) 13.2 TH/MM3 (1.8-7.7) Lymphocytes # (Auto) 0.8 TH/MM3 (1.0-4.8) Activated Partial Thromboplast Time 22.4 SEC (24.3-30.1) Blood Urea Nitrogen 25 MG/DL (7-18) 24 MG/DL (7-18) Random Glucose 226 MG/DL (74-106) 111 MG/DL (74-106) Estimat Glomerular Filtration Rate 68 ML/MIN (>89) 77 ML/MIN (>89) Troponin I 0.07 NG/ML (0.02-0.05) 0.08 NG/ML (0.02-0.05) 0.09 NG/ML (0.02-0.05) Total Creatine Kinase 30 U/L (39-308) 35 U/L (39-308) Hemoglobin 11.7 GM/DL (13.0-17.0) Hematocrit 34.8 % (39.0-51.0) Imaging Last Impressions Chest X-Ray 08/16/17 1512 Signed Impressions: Service Date/Time: Wednesday, August 16, 2017 15:18 - CONCLUSION: 1. Cardiomegaly. 2. Mild chronic interstitial changes. 3. No acute abnormality. Pete Caputo MD PE at Discharge GENERAL: Elderly pleasant male in no acute distress. HEENT: Normocephalic, atraumatic. Pupils equal, round and reactive. Extraocular movements intact. No scleral icterus. No injection or drainage. Oropharynx is clear. Mucous membranes are moist. CARDIOVASCULAR: Regular rate and rhythm without murmurs, gallops, or rubs. RESPIRATORY: Clear to auscultation. No wheezes, rales, or rhonchi. Breathing is non-labored. GASTROINTESTINAL: Abdomen soft, non-tender, nondistended. EXTREMITIES: No lower extremity edema. No calf tenderness. PSYCH: Alert and oriented x 3. Hospital Course 1. Chest pain, elevated troponin: Monitor on telemetry. Consult patient's psychologist social. Continue aspirin BB. Status post cardiac cath by Dr Jackson . Clean cath. Continue medical management. Cleared by cardiology for discharge for follow-up as outpatient. 2. Diabetes mellitus: Monitor Accu-Cheks and cover with sliding scale insulin. 3. Acute kidney injury: Possibly secondary to dehydration. Patient states that he has not been drinking much water recently. Monitor labs. Gentle IV fluid hydration. Patient is status post right nephrectomy. Avoid nephrotoxins. 4. Hypertension: Continue home medications once patient's medication reconciliation is updated. 5. GERD: PPI. 6. DVT prophylaxis: Heparin. Patient improved, discharge and stable condition to follow-up as outpatient with PCP and consultants Pt Condition on Discharge: Stable Discharge Disposition: Discharge Home Discharge Time: > 30 minutes Discharge Instructions DIET: Follow Instructions for: Heart Healthy Diet Activities you can perform: Regular-No Restrictions Follow up Referrals: Cardiology - 1 Week PCP Follow-up - 1 Week Continued Medications: Acetaminophen (Tylenol Extra Strength) 500 Mg Tablet PO HS Alendronate (Alendronate) 70 Mg Tab 70 MG PO Q7D for Osteporosis Treatment, #4 TAB 0 Refills Ascorbic Acid (Vitamin C) 250 Mg Tab 500 MG PO for Nutritional Supplement, TAB 0 Refills Calcium Carbonate (Calcium) 600 Mg Tab PO DAILY Cholecalciferol (Vitamin D3) 1,000 Unit Chew 1000 UNITS CHEW DAILY for Nutritional Supplement, #1 BOTTLE 0 Refills Citalopram (Citalopram) 10 Mg Tab 10 MG PO DAILY for Control Depression, #30 TAB 0 Refills Cyanocobalamin (B-12) 1,000 Mcg Subl 1000 MCG PO DAILY for Nutritional Supplement, TAB.SL 0 Refills Finasteride (Finasteride) 5 Mg Tab 5 MG PO DAILY for Manage Prostate Problems, #30 TAB 0 Refills Do not crush. Fish Oil-Cholecalciferol (Fish Oil + D3) 1,200-1,000 Mg-Unit Cap 1 CAP PO DAILY for Nutritional Supplement, #30 CAP 0 Refills Folic Acid (Folic Acid) 800 Mcg Tab 800 MCG PO DAILY for Nutritional Supplement, TAB 0 Refills Hydrocodone-Acetaminophen (Hydrocodone-Acetaminophen) 5-325 mg Tab 2 TAB PO Q4H PRN for moderate to severe pain, #15 TAB 0 Refills Levofloxacin (Levaquin) 500 Mg Tablet 500 MG PO DAILY for infection, #3 TAB 0 Refills Metformin (Metformin) 500 Mg Tab 500 MG PO DAILY for Blood Sugar Management, #30 TAB 0 Refills With a meal Metoclopramide (Metoclopramide) 10 Mg Tab 10 MG PO TID, TAB 0 Refills Multiple Vitamin (Multi-Vitamin Daily) 1 Tab Tab 1 TAB PO DAILY for Nutritional Supplement, TAB 0 Refills Omeprazole (Omeprazole) 20 Mg Tab 20 MG PO DAILY, #30 TAB 0 Refills Pravastatin (Pravastatin) 40 Mg Tab 40 MG PO DAILY for Cholesterol Management, #30 TAB 0 Refills Tamsulosin (Tamsulosin) 0.4 Mg Cap 0.4 MG PO HS for Manage Prostate Problems, #30 CAP 0 Refills Blaire Bernal MD Aug 17, 2017 20:39
[2017-08-17] MEDS ORDERED: METOPROLOL TARTRATE 50 MG TAB PO SCH (21:00)
== END 2017-08-17 17:50 | disposition home or self-care (01) ==
LOC: NEPC 13:47 → NEDA 17:40 → NEPFCDU 18:58 → HCIS 08-17 15:37
PROVIDERS: ADMIT Hospitalist; ATTEND Hospitalist
DX: R07.89 Other chest pain (principal); R74.8 Abnormal levels of other serum enzymes; R61 Generalized hyperhidrosis; I10 Essential (primary) hypertension; J44.9 Chronic obstructive pulmonary disease, unspecified; R94.31 Abnormal electrocardiogram [ECG] [EKG]; E78.00 Pure hypercholesterolemia, unspecified; E11.9 Type 2 diabetes mellitus without complications; R00.1 Bradycardia, unspecified; N17.9 Acute kidney failure, unspecified; K21.9 Gastro-esophageal reflux disease without esophagitis; G47.30 Sleep apnea, unspecified; H91.90 Unspecified hearing loss, unspecified ear; M19.90 Unspecified osteoarthritis, unspecified site; F17.210 Nicotine dependence, cigarettes, uncomplicated; Z90.5 Acquired absence of kidney; Z95.0 Presence of cardiac pacemaker; Z85.528 Personal history of other malignant neoplasm of kidney; Z79.899 Other long term (current) drug therapy; Z79.84 Long term (current) use of oral hypoglycemic drugs; Z85.54 Personal history of malignant neoplasm of ureter
CPT/HCPCS: 71045; 80048; 82550; 82948; 83735; 84484; 85025; 85610; 85730; 93005; 93458; 96365; 96372; 99152; 99153; 99285; C1760; C1769; C1893; G0269; G0378; J1644; J1815; J2250; J3010; J3480; J7030; Q9967